=== PATIENT | female | born 1960 | race Caucasian/White ===

== ENCOUNTER 2018-03-04 10:27 | Emergency (ER) | payer OTHER, MEDICAID ==
[2018-03-04 11:59] LABS: ADD MAN DIFF? NO
[2018-03-04 12:01] LABS: ABNORMAL IP MESSAGE 1; BASOPHIL # 0.1 10^3/ul (0.0-0.1); BASOPHILS % 1.6 % (0.0-2.0); EOSINOPHILS # 0.1 10^3/ul (0.0-0.5); HEMATOCRIT 34.9 % (37.0-47.0); HEMOGLOBIN 11.2 g/dl (12.0-16.0); LYMPHOCYTES % 22.7 % (15.0-51.0); MEAN CORPUSCULAR HEMOGLOBIN 35.2 pg (29.0-33.0); MEAN CORPUSCULAR HGB CONC 32.1 g/dl (32.0-37.0); MEAN CORPUSCULAR VOLUME 109.7 fl (82.0-101.0); MEAN PLATELET VOLUME 12.7 fl (7.4-10.4); MONOCYTE # 0.2 10^3/ul (0.3-0.9); MONOCYTES % 4.3 % (0.0-11.0); NEUTROPHIL # 3.1 10^3/ul (1.6-7.5); NEUTROPHILS % 69.2 % (39.0-77.0); PLATELET COUNT 66 10^3/UL (140-415); RED BLOOD COUNT 3.18 10^6/ul (4.20-5.40); RED CELL DISTRIBUTION WIDTH 18.3 % (11.5-14.5)
[2018-03-04 12:01] LABS: WHITE BLOOD COUNT 4.4 10^3/ul (4.8-10.8)
[2018-03-04 12:03] LABS: POSITIVE DIFF @See below
[2018-03-04 12:27] LABS: ALANINE AMINOTRANSFERASE 11 IU/L (13-69); ALBUMIN 3.3 g/dl (3.3-4.9); ALBUMIN/GLOBULIN RATIO 1.03; ALKALINE PHOSPHATASE 100 IU/L (42-121); ANION GAP 12 (5-13); ASPARTATE AMINO TRANSFERASE 14 IU/L (15-46); BLOOD UREA NITROGEN 21 mg/dl (7-20); CALCIUM 9.8 mg/dl (8.4-10.2); CARBON DIOXIDE 26 mmol/L (21-31); CHLORIDE 101 mmol/L (97-110); CREATININE 3.53 mg/dl (0.44-1.00); Estimated GFR 13 mL/min (>60); GLUCOSE 98 mg/dl (70-220); LIPASE 37 U/L (23-300); POTASSIUM 4.7 mmol/L (3.5-5.1); SODIUM 139 mmol/L (135-144); TOTAL PROTEIN 6.5 g/dl (6.1-8.1)
== END 2018-03-04 13:58 | disposition home or self-care (01) ==
LOC: E/R 10:27
DX: D64.9 Anemia, unspecified (principal); R40.2142 Coma scale, eyes open, spontaneous, at arrival to emergency department; R40.2362 Coma scale, best motor response, obeys commands, at arrival to emergency department; R40.2252 Coma scale, best verbal response, oriented, at arrival to emergency department; N18.9 Chronic kidney disease, unspecified; Z99.2 Dependence on renal dialysis
CPT/HCPCS: 36415; 71250; 74176; 80053; 83690; 85025; 99284-25

== ENCOUNTER 2018-05-12 23:56 | Inpatient (IN) | payer OTHER ==
[2018-05-13] MEDS: SODIUM CHLORIDE 0.9% 1L BAG IV* (01:01)
[2018-05-13 01:19] LABS: WHITE BLOOD COUNT 4.7 10^3/ul (4.8-10.8)
[2018-05-13 01:19] LABS: ABNORMAL IP MESSAGE 1; HEMATOCRIT 22.5 % (37.0-47.0); HEMOGLOBIN 7.4 g/dl (12.0-16.0); MEAN CORPUSCULAR HEMOGLOBIN 35.1 pg (29.0-33.0); MEAN CORPUSCULAR HGB CONC 32.9 g/dl (32.0-37.0); MEAN CORPUSCULAR VOLUME 106.6 fl (82.0-101.0); RED BLOOD COUNT 2.11 10^6/ul (4.20-5.40); RED CELL DISTRIBUTION WIDTH 16.2 % (11.5-14.5)
[2018-05-13 01:20] LABS: ADD MAN DIFF? YES; POSITIVE DIFF @See below
[2018-05-13 01:22] LABS: PLATELET COUNT 25 10^3/UL (140-415)
[2018-05-13 01:24] LABS: INR 1.29; PROTIME 16.2 Sec (11.9-14.9); PT RATIO 1.3
[2018-05-13 01:25] LABS: PARTIAL THROMBOPLASTIN TIME 40.3 Sec (23.0-35.0)
[2018-05-13 01:29] LABS: ALANINE AMINOTRANSFERASE 19 IU/L (13-69); ALKALINE PHOSPHATASE 93 IU/L (42-121); ANION GAP 12 (5-13); ASPARTATE AMINO TRANSFERASE 19 IU/L (15-46); BILIRUBIN,INDIRECT 0.3 mg/dl (0-1.1); BILIRUBIN,TOTAL 0.3 mg/dl (0.2-1.3); BLOOD UREA NITROGEN 42 mg/dl (7-20); CALCIUM 9.8 mg/dl (8.4-10.2); CARBON DIOXIDE 27 mmol/L (21-31); CHLORIDE 98 mmol/L (97-110); Estimated GFR 11 mL/min (>60); GLUCOSE 87 mg/dl (70-220); POTASSIUM 5.1 mmol/L (3.5-5.1); SODIUM 137 mmol/L (135-144); TOTAL PROTEIN 6.3 g/dl (6.1-8.1)
[2018-05-13 01:41] LABS: AADO2 Arterial 70.5 mmHg (7.0-24.0); Arterial Base Excess 0.2 mmol/L (-3.0-3); Arterial Blood Gas Oxygen Sat 93.2 mmHG (95.0-98.0); Arterial COHb 0.1 % (0.0-3.0); Arterial Fraction of Oxyhgb 92.7 % (93.0-99.0); Arterial HCO3 25.3 mmol/L (22.0-26.0); Arterial MetHb 0.4 % (0.0-1.5); Arterial pCO2 43.5 mmhg (35-45); B-TYPE NATRIURETIC PEPTIDE 8040 PG/ML (0-125); MODE NASAL CANNULA; Site Right Brachial; TROPONIN-I < 0.012 ng/ml (0.000-0.120)
[2018-05-13 01:52] LABS: ANISOCYTOSIS 2+ (0-0); BAND NEUTROPHILS #M 0.4 10^3/ul (0.0-0.6); BAND NEUTROPHILS % (M) 9 % (0-4); EOSINOPHILS % (M) 1 % (0-7); GIANT THROMBO% (M) 1 % (0-0); HYPOCHROMASIA 1+ (0-0); LYMPHOCYTES #M 0.5 10^3/ul (0.8-2.9); LYMPHOCYTES % (M) 11 % (15-51); MONOCYTE #M 0.1 10^3/ul (0.3-0.9); MONOCYTES % (M) 3 % (0-11); PLATELET ESTIMATE SIG DECREASED; POIKILOCYTOSIS 1+ (0-0); POLYCHROMASIA 2+ (0-0); SEG NEUT #M 3.6 10^3/ul (1.6-7.5); SEGMENTED NEUTROPHILS (M) % 76 % (39-77); SMUDGE%M 1 % (0-0)
[2018-05-13] MEDS: AZTREONAM 1 GM/NS (PMX) 50 ML IVPB (01:58)
[2018-05-13] MEDS: LEVOFLOXACIN 750MG/D5W (PMX) 150 ML IVPB (02:44)
[2018-05-13] MEDS ORDERED: ONDANSETRON 4 MG INJ IV (03:00)
[2018-05-13] MEDS ORDERED: DOCUSATE SODIUM 100 MG CAP PO (03:00)
[2018-05-13] MEDS ORDERED: BISACODYL (EC) 5 MG TAB PO (03:00)
[2018-05-13] MEDS ORDERED: ACETAMINOPHEN 325 MG TAB PO (03:00)
[2018-05-13] MEDS ORDERED: NACL 0.9% 3 ML SYG IV (03:00)
[2018-05-13 03:09] LABS: HAAIG REFLEX REFLEX FILED
[2018-05-13 04:10] LABS: HEPATITIS B CORE ANTIBODY NEGATIVE (NEGATIVE); HEPATITIS C VIRAL ANTIBODY NEGATIVE (NEGATIVE)
[2018-05-13 04:10] LABS: HEPATITIS B SURFACE ANTIBODY POSITIVE (NEGATIVE)
[2018-05-13 04:40] LABS: HEPATITIS B SURFACE ANTIGEN NEGATIVE (NEGATIVE)
[2018-05-13 06:07] LABS: ABNORMAL IP MESSAGE 1; MEAN CORPUSCULAR HEMOGLOBIN 34.8 pg (29.0-33.0); MEAN CORPUSCULAR HGB CONC 32.6 g/dl (32.0-37.0); MEAN CORPUSCULAR VOLUME 106.7 fl (82.0-101.0); RED BLOOD COUNT 1.78 10^6/ul (4.20-5.40); RED CELL DISTRIBUTION WIDTH 16.3 % (11.5-14.5)
[2018-05-13 06:07] LABS: WHITE BLOOD COUNT 3.5 10^3/ul (4.8-10.8)
[2018-05-13 06:22] LABS: HEMOGLOBIN 6.2 g/dl (12.0-16.0); PLATELET COUNT 14 10^3/UL (140-415)
[2018-05-13 06:23] LABS: ADD MAN DIFF? YES; PATH REVIEW? YES; POSITIVE DIFF @See below
[2018-05-13 06:41] LABS: PHOSPHORUS 5.7 mg/dl (2.5-4.9)
[2018-05-13] MEDS: ALBUMIN HUMAN 25% 50 ML INJ IV (06:47)
[2018-05-13] MEDS ORDERED: ALBUMIN HUMAN 25% 100 ML IV (07:00)
[2018-05-13] MEDS: ALBUMIN HUMAN 25% 100 ML IV ×2 (07:17→17:11)
[2018-05-13 07:29] LABS: LACTIC ACID 1.8 mmol/L (0.5-2.0)
[2018-05-13 08:27] LABS: ANISOCYTOSIS 1+ (0-0); BAND NEUTROPHILS #M 0.6 10^3/ul (0.0-0.6); BAND NEUTROPHILS % (M) 19 % (0-4); BASOPHILS % (M) 1 % (0-2); HYPOCHROMASIA 1+ (0-0); LYMPHOCYTES #M 0.7 10^3/ul (0.8-2.9); LYMPHOCYTES % (M) 22 % (15-51); MONOCYTE #M 0.1 10^3/ul (0.3-0.9); MONOCYTES % (M) 3 % (0-11); MYELOCYTES % (M) 2 % (0-0); OVALOCYTES 1+ (0-0); PLATELET ESTIMATE SIG DECREASED; POIKILOCYTOSIS 1+ (0-0); POLYCHROMASIA 2+ (0-0); SEG NEUT #M 1.9 10^3/ul (1.6-7.5); SEGMENTED NEUTROPHILS (M) % 53 % (39-77); SMUDGE%M 2 % (0-0)
[2018-05-13 09:48] LABS: IMMEDIATE SPIN CROSSMATCH 1 7
[2018-05-13] MEDS ORDERED: AZTREONAM 0.5 GM in SOD CHLORIDE 0.9% 50 ML IVPB (11:00)
[2018-05-13] MEDS ORDERED: PENDING SANTYL ORDER FOR WOUND CARE XX (12:30)
[2018-05-13] MEDS: metroNIDAZOLE 250 MG TAB PO ×2 (13:54→21:19)
[2018-05-13] MEDS ORDERED: metroNIDAZOLE 500 MG/NS (PMX) 100 ML IVPB (14:00)
[2018-05-13 14:54] LABS: WHITE BLOOD COUNT 3.9 10^3/ul (4.8-10.8)
[2018-05-13 14:54] LABS: ABNORMAL IP MESSAGE 1; HEMATOCRIT 28.7 % (37.0-47.0); HEMOGLOBIN 9.1 g/dl (12.0-16.0); MEAN CORPUSCULAR HEMOGLOBIN 31.7 pg (29.0-33.0); MEAN CORPUSCULAR HGB CONC 31.7 g/dl (32.0-37.0); RED BLOOD COUNT 2.87 10^6/ul (4.20-5.40); RED CELL DISTRIBUTION WIDTH 20.1 % (11.5-14.5)
[2018-05-13 15:13] LABS: POSITIVE DIFF @See below
[2018-05-13 15:15] LABS: PLATELET COUNT 21 10^3/UL (140-415)
[2018-05-13 15:19] LABS: ADD MAN DIFF? YES
[2018-05-13 16:06] LABS: ANISOCYTOSIS 2+ (0-0); BAND NEUTROPHILS #M 0.6 10^3/ul (0.0-0.6); BAND NEUTROPHILS % (M) 17 % (0-4); LYMPHOCYTES #M 0.4 10^3/ul (0.8-2.9); LYMPHOCYTES % (M) 12 % (15-51); MONOCYTES % (M) 1 % (0-11); PLATELET ESTIMATE SIG DECREASED; POIKILOCYTOSIS 1+ (0-0); SEG NEUT #M 2.8 10^3/ul (1.6-7.5); SEGMENTED NEUTROPHILS (M) % 70 % (39-77); SMUDGE%M 14 % (0-0)
[2018-05-13] MEDS: LIDOCAINE 1% (MPF) 5 ML VIAL (16:07)
[2018-05-13 17:21] LABS: ADD MAN DIFF? NO
[2018-05-13 17:24] LABS: WHITE BLOOD COUNT 2.9 10^3/ul (4.8-10.8)
[2018-05-13 17:24] LABS: ABNORMAL IP MESSAGE 1; BASOPHILS % 0.7 % (0.0-2.0); EOSINOPHILS % 0.7 % (0.0-7.0); HEMATOCRIT 21.8 % (37.0-47.0); HEMOGLOBIN 7.1 g/dl (12.0-16.0); LYMPHOCYTES # 0.5 10^3/ul (0.8-2.9); LYMPHOCYTES % 16.6 % (15.0-51.0); MEAN CORPUSCULAR HEMOGLOBIN 32.1 pg (29.0-33.0); MEAN CORPUSCULAR HGB CONC 32.6 g/dl (32.0-37.0); MEAN CORPUSCULAR VOLUME 98.6 fl (82.0-101.0); MEAN PLATELET VOLUME 10.6 fl (7.4-10.4); MONOCYTE # 0.1 10^3/ul (0.3-0.9); MONOCYTES % 3.5 % (0.0-11.0); NEUTROPHIL # 2.3 10^3/ul (1.6-7.5); NEUTROPHILS % 78.2 % (39.0-77.0); RED BLOOD COUNT 2.21 10^6/ul (4.20-5.40); RED CELL DISTRIBUTION WIDTH 20.3 % (11.5-14.5)
[2018-05-13 17:25] LABS: POSITIVE DIFF @See below
[2018-05-13 17:26] LABS: PLATELET COUNT 16 10^3/UL (140-415)
[2018-05-13 17:37] LABS: TYPE AND SCREEN 1
[2018-05-13 22:11] LABS: ABNORMAL IP MESSAGE 1; HEMATOCRIT 31.9 % (37.0-47.0); HEMOGLOBIN 10.5 g/dl (12.0-16.0); MEAN CORPUSCULAR HEMOGLOBIN 32.5 pg (29.0-33.0); MEAN CORPUSCULAR HGB CONC 32.9 g/dl (32.0-37.0); MEAN CORPUSCULAR VOLUME 98.8 fl (82.0-101.0); RED BLOOD COUNT 3.23 10^6/ul (4.20-5.40); RED CELL DISTRIBUTION WIDTH 18.7 % (11.5-14.5)
[2018-05-13 22:11] LABS: WHITE BLOOD COUNT 4.1 10^3/ul (4.8-10.8)
[2018-05-13 22:20] LABS: POSITIVE DIFF @See below
[2018-05-13 22:22] LABS: PLATELET COUNT 18 10^3/UL (140-415)
[2018-05-13 22:24] LABS: ADD MAN DIFF? YES
[2018-05-13 22:47] LABS: ANISOCYTOSIS 2+ (0-0); BAND NEUTROPHILS #M 0.2 10^3/ul (0.0-0.6); BAND NEUTROPHILS % (M) 7 % (0-4); EOSINOPHILS % (M) 5 % (0-7); ERYTHROBLAST% (NRBC) (M) 1 % (0-0); GIANT THROMBO% (M) 11 % (0-0); LYMPHOCYTES #M 0.6 10^3/ul (0.8-2.9); LYMPHOCYTES % (M) 15 % (15-51); MICROCYTOSIS 1+ (0-0); PLATELET ESTIMATE NORMAL; POIKILOCYTOSIS 1+ (0-0); POLYCHROMASIA 1+ (0-0); SEGMENTED NEUTROPHILS (M) % 73 % (39-77); SMUDGE%M 5 % (0-0)
[2018-05-14] MEDS: metroNIDAZOLE 250 MG TAB PO ×3 (05:38→21:14)
[2018-05-14 06:17] LABS: WHITE BLOOD COUNT 4.6 10^3/ul (4.8-10.8)
[2018-05-14 06:17] LABS: ABNORMAL IP MESSAGE 1; HEMATOCRIT 32.9 % (37.0-47.0); HEMOGLOBIN 10.9 g/dl (12.0-16.0); MEAN CORPUSCULAR HEMOGLOBIN 32.4 pg (29.0-33.0); MEAN CORPUSCULAR HGB CONC 33.1 g/dl (32.0-37.0); MEAN CORPUSCULAR VOLUME 97.9 fl (82.0-101.0); RED BLOOD COUNT 3.36 10^6/ul (4.20-5.40); RED CELL DISTRIBUTION WIDTH 19.3 % (11.5-14.5)
[2018-05-14 06:20] LABS: ADD MAN DIFF? YES; POSITIVE DIFF @See below
[2018-05-14 06:21] LABS: PLATELET COUNT 19 10^3/UL (140-415)
[2018-05-14 06:57] LABS: ALANINE AMINOTRANSFERASE 24 IU/L (13-69); ALBUMIN 3.1 g/dl (3.3-4.9); ALKALINE PHOSPHATASE 99 IU/L (42-121); ANION GAP 9 (5-13); ASPARTATE AMINO TRANSFERASE 14 IU/L (15-46); BILIRUBIN,INDIRECT 0.5 mg/dl (0-1.1); BILIRUBIN,TOTAL 0.5 mg/dl (0.2-1.3); BLOOD UREA NITROGEN 24 mg/dl (7-20); CARBON DIOXIDE 27 mmol/L (21-31); CHLORIDE 105 mmol/L (97-110); CHOL/HDL RATIO 2.6 RATIO; CHOLESTEROL 73 mg/dl (100-200); CREATININE 2.44 mg/dl (0.44-1.00); Estimated GFR 20 mL/min (>60); GLUCOSE 96 mg/dl (70-220); HDL CHOLESTEROL 28 mg/dl (37-92); LDL CHOLESTEROL,CALCULATED 30 mg/dl; MAGNESIUM 1.8 mg/dl (1.7-2.5); SODIUM 141 mmol/L (135-144); TOTAL PROTEIN 5.9 g/dl (6.1-8.1); TRIGLYCERIDES 73 mg/dl (0-149)
[2018-05-14 07:25] LABS: HIV 1&2 ANTIBODY NEGATIVE (NEGATIVE)
[2018-05-14 07:32] LABS: OCCULT BLOOD STOOL NEGATIVE (NEGATIVE)
[2018-05-14 07:50] LABS: ANISOCYTOSIS 1+ (0-0); BAND NEUTROPHILS #M 0.5 10^3/ul (0.0-0.6); BAND NEUTROPHILS % (M) 12 % (0-4); BURR CELLS 1+ (0-0); EOSINOPHILS % (M) 2 % (0-7); GIANT THROMBO% (M) 10 % (0-0); LYMPHOCYTES #M 1.3 10^3/ul (0.8-2.9); LYMPHOCYTES % (M) 30 % (15-51); PLATELET ESTIMATE SIG DECREASED; POIKILOCYTOSIS 1+ (0-0); REACTIVE LYMPHOCYTES #M 0.5 10^3/ul (0.0-0.0); REACTIVE LYMPHOCYTES% (M) 11 % (0-0); SEG NEUT #M 2.1 10^3/ul (1.6-7.5); SEGMENTED NEUTROPHILS (M) % 45 % (39-77); SMUDGE%M 21 % (0-0)
[2018-05-14 07:58] LABS: HEMOGLOBIN A1C 4.9 % (0-5.9)
[2018-05-14] MEDS: MULTIVIT/CA CARB/B CMPLX/FA TAB PO (13:49)
[2018-05-14] MEDS: PANTOPRAZOLE (EC) 40 MG TAB PO (13:49)
[2018-05-14] MEDS: FOLIC ACID 1 MG TAB PO (13:50)
[2018-05-14] MEDS: AMIODARONE 200 MG TAB PO ×2 (13:50→21:15)
[2018-05-14] MEDS: EPOETIN 10000 UNITS/1 ML INJ (ESRD) SC (13:53)
[2018-05-14] MEDS: SOD CHLORIDE 0.9% 0 ML IV (21:15)
[2018-05-15 06:16] LABS: WHITE BLOOD COUNT 4.6 10^3/ul (4.8-10.8)
[2018-05-15 06:16] LABS: ABNORMAL IP MESSAGE 1; HEMATOCRIT 32.5 % (37.0-47.0); HEMOGLOBIN 10.7 g/dl (12.0-16.0); MEAN CORPUSCULAR HEMOGLOBIN 32.3 pg (29.0-33.0); MEAN CORPUSCULAR HGB CONC 32.9 g/dl (32.0-37.0); MEAN CORPUSCULAR VOLUME 98.2 fl (82.0-101.0); MEAN PLATELET VOLUME 11.7 fl (7.4-10.4); RED BLOOD COUNT 3.31 10^6/ul (4.20-5.40); RED CELL DISTRIBUTION WIDTH 19.5 % (11.5-14.5)
[2018-05-15] MEDS: LEVOTHYROXINE 75 MCG TAB PO (06:19)
[2018-05-15] MEDS: LEVOFLOXACIN 250 MG TAB PO (06:19)
[2018-05-15] MEDS: metroNIDAZOLE 250 MG TAB PO ×4 (06:19→22:00)
[2018-05-15] MEDS: PANTOPRAZOLE (EC) 40 MG TAB PO (06:19)
[2018-05-15 06:31] LABS: ADD MAN DIFF? YES; POSITIVE DIFF @See below
[2018-05-15 06:33] LABS: PLATELET COUNT 22 10^3/UL (140-415)
[2018-05-15 06:51] LABS: THROMBIN TIME 16.1 SEC (13.8-19.1)
[2018-05-15 07:04] LABS: ANION GAP 11 (5-13); BLOOD UREA NITROGEN 29 mg/dl (7-20); CALCIUM 9.2 mg/dl (8.4-10.2); CARBON DIOXIDE 24 mmol/L (21-31); CHLORIDE 107 mmol/L (97-110); CREATININE 3.05 mg/dl (0.44-1.00); Estimated GFR 16 mL/min (>60); GLUCOSE 93 mg/dl (70-220); MAGNESIUM 1.9 mg/dl (1.7-2.5); POTASSIUM 3.9 mmol/L (3.5-5.1); SODIUM 142 mmol/L (135-144)
[2018-05-15] MEDS ORDERED: LEVOFLOXACIN 250MG/D5W (PMX) 50 ML IVPB (08:30)
[2018-05-15] MEDS: FOLIC ACID 1 MG TAB PO (08:42)
[2018-05-15] MEDS: MULTIVIT/CA CARB/B CMPLX/FA TAB PO (08:42)
[2018-05-15] MEDS: AMIODARONE 200 MG TAB PO ×2 (08:43→21:00)
[2018-05-15 09:21] LABS: ANISOCYTOSIS 1+ (0-0); BAND NEUTROPHILS #M 0.1 10^3/ul (0.0-0.6); BAND NEUTROPHILS % (M) 4 % (0-4); BURR CELLS 1+ (0-0); EOSINOPHILS % (M) 1 % (0-7); GIANT THROMBO% (M) 12 % (0-0); HYPOCHROMASIA 1+ (0-0); LYMPHOCYTES #M 0.5 10^3/ul (0.8-2.9); LYMPHOCYTES % (M) 13 % (15-51); PLATELET ESTIMATE DECREASED; POIKILOCYTOSIS 1+ (0-0); REACTIVE LYMPHOCYTES% (M) 1 % (0-0); SEG NEUT #M 3.7 10^3/ul (1.6-7.5); SEGMENTED NEUTROPHILS (M) % 81 % (39-77); SMUDGE%M 6 % (0-0)
[2018-05-15] MEDS ORDERED: IMMUNE GLOBULIN (HUMAN) 6 GM INJ IV (17:00)
[2018-05-15 18:03] LABS: FREE T4 (FREE THYROXINE) 1.23 ng/dl (0.64-1.79); T4 (THYROXINE) 4.6 ug/dl (5.5-11.0)
[2018-05-15] MEDS: EPOETIN 10000 UNITS/1 ML INJ (ESRD) SC (22:00)
[2018-05-16] MEDS: IMMUNE GLOBULIN IV ×2 (00:26→13:14)
[2018-05-16] MEDS: WATER STERILE FOR IV ×2 (00:26→13:14)
[2018-05-16 05:49] LABS: ABNORMAL IP MESSAGE 1; HEMATOCRIT 30.3 % (37.0-47.0); HEMOGLOBIN 9.7 g/dl (12.0-16.0); MEAN CORPUSCULAR HEMOGLOBIN 32.6 pg (29.0-33.0); MEAN CORPUSCULAR VOLUME 101.7 fl (82.0-101.0); MEAN PLATELET VOLUME 12.2 fl (7.4-10.4); RED BLOOD COUNT 2.98 10^6/ul (4.20-5.40); RED CELL DISTRIBUTION WIDTH 19.6 % (11.5-14.5)
[2018-05-16 05:49] LABS: WHITE BLOOD COUNT 3.7 10^3/ul (4.8-10.8)
[2018-05-16 06:06] LABS: ANION GAP 8 (5-13); BLOOD UREA NITROGEN 17 mg/dl (7-20); CALCIUM 8.6 mg/dl (8.4-10.2); CARBON DIOXIDE 28 mmol/L (21-31); CHLORIDE 105 mmol/L (97-110); CREATININE 2.28 mg/dl (0.44-1.00); Estimated GFR 22 mL/min (>60); GLUCOSE 90 mg/dl (70-220); POTASSIUM 3.6 mmol/L (3.5-5.1); SODIUM 141 mmol/L (135-144)
[2018-05-16] MEDS: metroNIDAZOLE 250 MG TAB PO ×3 (06:16→22:58)
[2018-05-16] MEDS: LEVOTHYROXINE 75 MCG TAB PO (06:16)
[2018-05-16] MEDS: PANTOPRAZOLE (EC) 40 MG TAB PO (06:16)
[2018-05-16 06:49] LABS: POSITIVE DIFF @See below
[2018-05-16 06:52] LABS: ADD MAN DIFF? YES; PLATELET COUNT 17 10^3/UL (140-415)
[2018-05-16 09:39] LABS: ANISOCYTOSIS 1+ (0-0); BAND NEUTROPHILS #M 0.1 10^3/ul (0.0-0.6); BAND NEUTROPHILS % (M) 3 % (0-4); BASOPHILS % (M) 1 % (0-2); BURR CELLS 2+ (0-0); EOSINOPHILS % (M) 4 % (0-7); ERYTHROBLAST% (NRBC) (M) 1 % (0-0); GIANT THROMBO% (M) 2 % (0-0); LYMPHOCYTES #M 0.5 10^3/ul (0.8-2.9); LYMPHOCYTES % (M) 16 % (15-51); METAMYELOCYTES %M 1 % (0-0); MYELOCYTES % (M) 1 % (0-0); OVALOCYTES 1+ (0-0); PLATELET ESTIMATE DECREASED; POIKILOCYTOSIS 1+ (0-0); SEG NEUT #M 2.7 10^3/ul (1.6-7.5); SEGMENTED NEUTROPHILS (M) % 74 % (39-77); SMUDGE%M 9 % (0-0)
[2018-05-16] MEDS: FOLIC ACID 1 MG TAB PO (09:40)
[2018-05-16] MEDS: MULTIVIT/CA CARB/B CMPLX/FA TAB PO (09:40)
[2018-05-16] MEDS: AMIODARONE 200 MG TAB PO ×2 (09:40→21:44)
[2018-05-16] MEDS ORDERED: WATER STERILE FOR IV (10:00)
[2018-05-16] MEDS ORDERED: IMMUNE GLOBULIN IV (10:00)
[2018-05-16 14:27] LABS: ANA SCREEN NEGATIVE (NEGATIVE)
[2018-05-16] MEDS: GUAIFENESIN 20 MG/ML 5ML CUP PO (17:15)
[2018-05-16] MEDS: FUROSEMIDE 20 MG INJ IV (17:16)
[2018-05-16 20:39] LABS: ADD MAN DIFF? NO
[2018-05-16 20:43] LABS: WHITE BLOOD COUNT 5.4 10^3/ul (4.8-10.8)
[2018-05-16 20:43] LABS: ABNORMAL IP MESSAGE 1; BASOPHILS % 0.7 % (0.0-2.0); EOSINOPHILS # 0.1 10^3/ul (0.0-0.5); EOSINOPHILS % 0.9 % (0.0-7.0); HEMATOCRIT 31.5 % (37.0-47.0); HEMOGLOBIN 10.1 g/dl (12.0-16.0); LYMPHOCYTES # 0.8 10^3/ul (0.8-2.9); LYMPHOCYTES % 14.7 % (15.0-51.0); MEAN CORPUSCULAR HEMOGLOBIN 32.3 pg (29.0-33.0); MEAN CORPUSCULAR HGB CONC 32.1 g/dl (32.0-37.0); MEAN CORPUSCULAR VOLUME 100.6 fl (82.0-101.0); MEAN PLATELET VOLUME 11.2 fl (7.4-10.4); MONOCYTE # 0.5 10^3/ul (0.3-0.9); MONOCYTES % 8.3 % (0.0-11.0); NEUTROPHILS % 73.9 % (39.0-77.0); RED BLOOD COUNT 3.13 10^6/ul (4.20-5.40); RED CELL DISTRIBUTION WIDTH 19.5 % (11.5-14.5)
[2018-05-16 20:48] LABS: POSITIVE DIFF @See below
[2018-05-16 20:50] LABS: PLATELET COUNT 17 10^3/UL (140-415)
[2018-05-16 21:00] LABS: ANION GAP 7 (5-13); BLOOD UREA NITROGEN 19 mg/dl (7-20); CALCIUM 8.7 mg/dl (8.4-10.2); CARBON DIOXIDE 28 mmol/L (21-31); CHLORIDE 104 mmol/L (97-110); CREATININE 2.73 mg/dl (0.44-1.00); Estimated GFR 18 mL/min (>60); GLUCOSE 128 mg/dl (70-220); POTASSIUM 3.5 mmol/L (3.5-5.1); SODIUM 139 mmol/L (135-144)
[2018-05-16 21:11] LABS: TROPONIN-I < 0.012 ng/ml (0.000-0.120)
[2018-05-17 07:02] LABS: WHITE BLOOD COUNT 6.1 10^3/ul (4.8-10.8)
[2018-05-17 07:02] LABS: ABNORMAL IP MESSAGE 1; HEMATOCRIT 30.3 % (37.0-47.0); HEMOGLOBIN 9.6 g/dl (12.0-16.0); MEAN CORPUSCULAR HEMOGLOBIN 32.5 pg (29.0-33.0); MEAN CORPUSCULAR HGB CONC 31.7 g/dl (32.0-37.0); MEAN CORPUSCULAR VOLUME 102.7 fl (82.0-101.0); NUCLEATED RED BLOOD CELLS% 0.3 /100WBC (0.0-0.0); RED BLOOD COUNT 2.95 10^6/ul (4.20-5.40); RED CELL DISTRIBUTION WIDTH 19.5 % (11.5-14.5)
[2018-05-17 07:06] LABS: MEAN PLATELET VOLUME 13.7 fl (7.4-10.4); POSITIVE DIFF @See below
[2018-05-17 07:07] LABS: ADD MAN DIFF? YES; PLATELET COUNT 25 10^3/UL (140-415)
[2018-05-17 07:19] LABS: ANION GAP 7 (5-13); BLOOD UREA NITROGEN 21 mg/dl (7-20); CALCIUM 8.7 mg/dl (8.4-10.2); CARBON DIOXIDE 28 mmol/L (21-31); CHLORIDE 105 mmol/L (97-110); CREATININE 2.99 mg/dl (0.44-1.00); Estimated GFR 16 mL/min (>60); GLUCOSE 73 mg/dl (70-220); SODIUM 140 mmol/L (135-144)
[2018-05-17 07:45] LABS: ANISOCYTOSIS 1+ (0-0); BAND NEUTROPHILS % (M) 1 % (0-4); BASOPHIL #M 0.1 10^3/ul (0.0-0.0); BASOPHILS % (M) 3 % (0-2); EOSINOPHILS % (M) 1 % (0-7); ERYTHROBLAST% (NRBC) (M) 1 % (0-0); GIANT THROMBO% (M) 1 % (0-0); LYMPHOCYTES #M 2.6 10^3/ul (0.8-2.9); LYMPHOCYTES % (M) 44 % (15-51); MICROCYTOSIS 1+ (0-0); MONOCYTES % (M) 1 % (0-11); PLATELET ESTIMATE SIG DECREASED; POLYCHROMASIA 1+ (0-0); REACTIVE LYMPHOCYTES #M 0.2 10^3/ul (0.0-0.0); REACTIVE LYMPHOCYTES% (M) 4 % (0-0); SEG NEUT #M 2.8 10^3/ul (1.6-7.5); SEGMENTED NEUTROPHILS (M) % 46 % (39-77); SMUDGE%M 21 % (0-0); SPHEROCYTES 1+ (0-0)
[2018-05-17] MEDS: metroNIDAZOLE 250 MG TAB PO ×3 (07:46→20:33)
[2018-05-17] MEDS: LEVOTHYROXINE 75 MCG TAB PO (07:47)
[2018-05-17] MEDS: PANTOPRAZOLE (EC) 40 MG TAB PO (07:47)
[2018-05-17] MEDS: LEVOFLOXACIN 250 MG TAB PO (07:47)
[2018-05-17] MEDS: AMIODARONE 200 MG TAB PO ×2 (09:00→20:44)
[2018-05-17] MEDS: MULTIVIT/CA CARB/B CMPLX/FA TAB PO (09:13)
[2018-05-17] MEDS: FOLIC ACID 1 MG TAB PO (09:14)
[2018-05-17] MEDS ORDERED: IMMUNE GLOBULIN (HUMAN) 6 GM INJ IV (10:30)
[2018-05-17] MEDS: ALBUMIN HUMAN 25% 100 ML IV (10:50)
[2018-05-17] MEDS ORDERED: EVAC CONTAINER IV (13:00)
[2018-05-17] MEDS ORDERED: IMMUN GLOB 10% IV (13:00)
[2018-05-17] MEDS: EPOETIN 10000 UNITS/1 ML INJ (ESRD) SC (16:33)
[2018-05-18] MEDS: PANTOPRAZOLE (EC) 40 MG TAB PO (06:07)
[2018-05-18] MEDS: LEVOTHYROXINE 75 MCG TAB PO (06:07)
[2018-05-18] MEDS: metroNIDAZOLE 250 MG TAB PO ×3 (06:07→21:03)
[2018-05-18 06:35] LABS: ADD MAN DIFF? NO
[2018-05-18 06:46] LABS: ABNORMAL IP MESSAGE 1; BASOPHILS % 0.5 % (0.0-2.0); EOSINOPHILS % 0.6 % (0.0-7.0); HEMATOCRIT 31.1 % (37.0-47.0); HEMOGLOBIN 9.8 g/dl (12.0-16.0); LYMPHOCYTES # 1.1 10^3/ul (0.8-2.9); LYMPHOCYTES % 17.5 % (15.0-51.0); MEAN CORPUSCULAR HEMOGLOBIN 31.8 pg (29.0-33.0); MEAN CORPUSCULAR HGB CONC 31.5 g/dl (32.0-37.0); MEAN PLATELET VOLUME 12.7 fl (7.4-10.4); MONOCYTE # 0.5 10^3/ul (0.3-0.9); MONOCYTES % 8.1 % (0.0-11.0); NEUTROPHIL # 4.7 10^3/ul (1.6-7.5); NEUTROPHILS % 72.1 % (39.0-77.0); NUCLEATED RED BLOOD CELLS% 0.5 /100WBC (0.0-0.0); RED BLOOD COUNT 3.08 10^6/ul (4.20-5.40); RED CELL DISTRIBUTION WIDTH 19.4 % (11.5-14.5)
[2018-05-18 06:46] LABS: WHITE BLOOD COUNT 6.5 10^3/ul (4.8-10.8)
[2018-05-18 06:49] LABS: POSITIVE DIFF @See below
[2018-05-18 06:51] LABS: PLATELET COUNT 24 10^3/UL (140-415)
[2018-05-18 07:29] LABS: ANION GAP 10 (5-13); BLOOD UREA NITROGEN 17 mg/dl (7-20); CALCIUM 8.5 mg/dl (8.4-10.2); CARBON DIOXIDE 23 mmol/L (21-31); CHLORIDE 109 mmol/L (97-110); CREATININE 2.36 mg/dl (0.44-1.00); Estimated GFR 21 mL/min (>60); GLUCOSE 78 mg/dl (70-220); POTASSIUM 3.9 mmol/L (3.5-5.1); SODIUM 142 mmol/L (135-144)
[2018-05-18] MEDS: AMIODARONE 200 MG TAB PO ×2 (09:20→20:19)
[2018-05-18] MEDS: MULTIVIT/CA CARB/B CMPLX/FA TAB PO (09:20)
[2018-05-18] MEDS: FOLIC ACID 1 MG TAB PO (09:20)
[2018-05-18 12:46] LABS: PROCALCITONIN 4.93 ng/mL (<0.10)
[2018-05-18] MEDS: METHYLPREDNISOLONE 125 MG INJ IV (18:23)
[2018-05-18 23:35] LABS: HEPARIN INDUCED PLATELET AB WEAK POSITIVE (NEGATIVE)
[2018-05-19] MEDS: PANTOPRAZOLE (EC) 40 MG TAB PO (05:26)
[2018-05-19] MEDS: metroNIDAZOLE 250 MG TAB PO ×3 (05:26→21:11)
[2018-05-19] MEDS: LEVOTHYROXINE 75 MCG TAB PO (06:25)
[2018-05-19] MEDS: LEVOFLOXACIN 250 MG TAB PO (06:25)
[2018-05-19 06:35] LABS: ADD MAN DIFF? NO
[2018-05-19 06:50] LABS: WHITE BLOOD COUNT 6.1 10^3/ul (4.8-10.8)
[2018-05-19 06:50] LABS: ABNORMAL IP MESSAGE 1; BASOPHILS % 0.2 % (0.0-2.0); HEMATOCRIT 30.4 % (37.0-47.0); HEMOGLOBIN 9.3 g/dl (12.0-16.0); LYMPHOCYTES # 0.6 10^3/ul (0.8-2.9); LYMPHOCYTES % 9.1 % (15.0-51.0); MEAN CORPUSCULAR HEMOGLOBIN 31.5 pg (29.0-33.0); MEAN CORPUSCULAR HGB CONC 30.6 g/dl (32.0-37.0); MEAN CORPUSCULAR VOLUME 103.1 fl (82.0-101.0); MEAN PLATELET VOLUME 13.3 fl (7.4-10.4); MONOCYTE # 0.1 10^3/ul (0.3-0.9); MONOCYTES % 1.5 % (0.0-11.0); NEUTROPHIL # 5.4 10^3/ul (1.6-7.5); NEUTROPHILS % 88.5 % (39.0-77.0); RED BLOOD COUNT 2.95 10^6/ul (4.20-5.40); RED CELL DISTRIBUTION WIDTH 19.4 % (11.5-14.5)
[2018-05-19 07:06] LABS: ANION GAP 8 (5-13); BLOOD UREA NITROGEN 26 mg/dl (7-20); CALCIUM 8.8 mg/dl (8.4-10.2); CARBON DIOXIDE 25 mmol/L (21-31); CHLORIDE 109 mmol/L (97-110); CREATININE 2.88 mg/dl (0.44-1.00); Estimated GFR 17 mL/min (>60); GLUCOSE 124 mg/dl (70-220); POTASSIUM 4.3 mmol/L (3.5-5.1); SODIUM 142 mmol/L (135-144)
[2018-05-19 07:17] LABS: PLATELET COUNT 23 10^3/UL (140-415); POSITIVE DIFF @See below
[2018-05-19] MEDS: AMIODARONE 200 MG TAB PO ×2 (09:00→21:10)
[2018-05-19] MEDS: METHYLPREDNISOLONE 125 MG INJ IV (09:51)
[2018-05-19] MEDS: FOLIC ACID 1 MG TAB PO (09:52)
[2018-05-19] MEDS: MULTIVIT/CA CARB/B CMPLX/FA TAB PO (09:52)
[2018-05-20] MEDS: metroNIDAZOLE 250 MG TAB PO ×3 (06:09→21:15)
[2018-05-20] MEDS: LEVOTHYROXINE 75 MCG TAB PO (06:09)
[2018-05-20] MEDS: PANTOPRAZOLE (EC) 40 MG TAB PO (06:10)
[2018-05-20 06:31] LABS: ABNORMAL IP MESSAGE 1; HEMOGLOBIN 9.2 g/dl (12.0-16.0); MEAN CORPUSCULAR HEMOGLOBIN 31.4 pg (29.0-33.0); MEAN CORPUSCULAR HGB CONC 30.7 g/dl (32.0-37.0); MEAN CORPUSCULAR VOLUME 102.4 fl (82.0-101.0); MEAN PLATELET VOLUME 11.9 fl (7.4-10.4); NUCLEATED RED BLOOD CELLS% 0.4 /100WBC (0.0-0.0); RED BLOOD COUNT 2.93 10^6/ul (4.20-5.40); RED CELL DISTRIBUTION WIDTH 19.2 % (11.5-14.5)
[2018-05-20 06:31] LABS: WHITE BLOOD COUNT 10.8 10^3/ul (4.8-10.8)
[2018-05-20 06:50] LABS: POSITIVE DIFF @See below
[2018-05-20 06:52] LABS: PLATELET COUNT 28 10^3/UL (140-415)
[2018-05-20 06:53] LABS: ADD MAN DIFF? YES
[2018-05-20 07:04] LABS: ANION GAP 11 (5-13); BLOOD UREA NITROGEN 40 mg/dl (7-20); CALCIUM 9.4 mg/dl (8.4-10.2); CARBON DIOXIDE 24 mmol/L (21-31); CHLORIDE 108 mmol/L (97-110); CREATININE 3.32 mg/dl (0.44-1.00); Estimated GFR 14 mL/min (>60); GLUCOSE 142 mg/dl (70-220); POTASSIUM 3.9 mmol/L (3.5-5.1); SODIUM 143 mmol/L (135-144)
[2018-05-20 07:53] LABS: ANISOCYTOSIS 2+ (0-0); BAND NEUTROPHILS #M 1.2 10^3/ul (0.0-0.6); BAND NEUTROPHILS % (M) 12 % (0-4); BURR CELLS 3+ (0-0); ERYTHROBLAST% (NRBC) (M) 2 % (0-0); HYPOCHROMASIA 1+ (0-0); LYMPHOCYTES #M 0.7 10^3/ul (0.8-2.9); LYMPHOCYTES % (M) 7 % (15-51); MONOCYTE #M 0.1 10^3/ul (0.3-0.9); MONOCYTES % (M) 1 % (0-11); OVALOCYTES 1+ (0-0); PLATELET ESTIMATE SIG DECREASED; POIKILOCYTOSIS 3+ (0-0); POLYCHROMASIA 3+ (0-0); REACTIVE LYMPHOCYTES #M 0.1 10^3/ul (0.0-0.0); REACTIVE LYMPHOCYTES% (M) 1 % (0-0); SEG NEUT #M 8.7 10^3/ul (1.6-7.5); SEGMENTED NEUTROPHILS (M) % 79 % (39-77); SMUDGE%M 3 % (0-0); TARGET CELLS 1+ (0-0); TOXIC GRANULATION 1+ (0-0)
[2018-05-20] MEDS ORDERED: ALBUMIN HUMAN 25% 100 ML IV (10:00)
[2018-05-20] MEDS: ALBUMIN HUMAN 25% 100 ML IV ×2 (10:21→11:00)
[2018-05-20] MEDS: MULTIVIT/CA CARB/B CMPLX/FA TAB PO (18:00)
[2018-05-20] MEDS: EPOETIN 10000 UNITS/1 ML INJ (ESRD) SC (18:00)
[2018-05-20] MEDS: AMIODARONE 200 MG TAB PO ×2 (18:00→21:16)
[2018-05-20] MEDS: FOLIC ACID 1 MG TAB PO (18:00)
[2018-05-20] MEDS: METHYLPREDNISOLONE 125 MG INJ IV (18:00)
[2018-05-20 20:06] LABS: PLATELET ANTIBODY - IGA NEGATIVE (NEGATIVE); PLATELET ANTIBODY - IGG POSITIVE (NEGATIVE); PLATELET ANTIBODY - IGM NEGATIVE (NEGATIVE)
[2018-05-21] MEDS: LEVOTHYROXINE 75 MCG TAB PO (06:10)
[2018-05-21] MEDS: PANTOPRAZOLE (EC) 40 MG TAB PO (06:10)
[2018-05-21 08:53] LABS: ABNORMAL IP MESSAGE 1; HEMATOCRIT 28.5 % (37.0-47.0); HEMOGLOBIN 8.8 g/dl (12.0-16.0); MEAN CORPUSCULAR HEMOGLOBIN 31.4 pg (29.0-33.0); MEAN CORPUSCULAR HGB CONC 30.9 g/dl (32.0-37.0); MEAN CORPUSCULAR VOLUME 101.8 fl (82.0-101.0); MEAN PLATELET VOLUME 13.1 fl (7.4-10.4); NUCLEATED RED BLOOD CELLS% 0.4 /100WBC (0.0-0.0); RED CELL DISTRIBUTION WIDTH 19.1 % (11.5-14.5)
[2018-05-21 08:53] LABS: WHITE BLOOD COUNT 11.3 10^3/ul (4.8-10.8)
[2018-05-21 08:59] LABS: POSITIVE DIFF @See below
[2018-05-21 09:01] LABS: PLATELET COUNT 27 10^3/UL (140-415)
[2018-05-21 09:02] LABS: ADD MAN DIFF? YES
[2018-05-21 09:13] LABS: ANION GAP 12 (5-13); BLOOD UREA NITROGEN 32 mg/dl (7-20); CARBON DIOXIDE 30 mmol/L (21-31); CHLORIDE 101 mmol/L (97-110); CREATININE 2.31 mg/dl (0.44-1.00); Estimated GFR 22 mL/min (>60); GLUCOSE 126 mg/dl (70-220); POTASSIUM 3.8 mmol/L (3.5-5.1); SODIUM 143 mmol/L (135-144)
[2018-05-21] MEDS: METHYLPREDNISOLONE 125 MG INJ IV (09:14)
[2018-05-21] MEDS: FOLIC ACID 1 MG TAB PO (09:14)
[2018-05-21] MEDS: AMIODARONE 200 MG TAB PO (09:14)
[2018-05-21] MEDS: MULTIVIT/CA CARB/B CMPLX/FA TAB PO (09:14)
[2018-05-21 09:49] LABS: ANISOCYTOSIS 2+ (0-0); BAND NEUTROPHILS #M 0.3 10^3/ul (0.0-0.6); BAND NEUTROPHILS % (M) 3 % (0-4); BURR CELLS 1+ (0-0); LYMPHOCYTES #M 0.3 10^3/ul (0.8-2.9); LYMPHOCYTES % (M) 3 % (15-51); MONOCYTE #M 0.1 10^3/ul (0.3-0.9); MONOCYTES % (M) 1 % (0-11); PLATELET ESTIMATE SIG DECREASED; POIKILOCYTOSIS 1+ (0-0); POLYCHROMASIA 1+ (0-0); SEG NEUT #M 10.5 10^3/ul (1.6-7.5); SEGMENTED NEUTROPHILS (M) % 93 % (39-77); SMUDGE%M 3 % (0-0)
[2018-05-21] MEDS ORDERED: BALSAM PERU/CASTOR OIL 60 GM TUBE TOP (21:00)
== END 2018-05-21 15:57 | disposition home or self-care (01) | DRG 808 ==
LOC: E/R 23:56 → TEL 05-16 18:48 → MS1 05-15 12:50 → 6WM 05-13 02:51
PROC: 0W9G3ZZ Drainage of Peritoneal Cavity, Percutaneous Approach (ICD-10-PCS; principal; 2018-05-13)
PROC: 30233R1 Transfusion of Nonautologous Platelets into Peripheral Vein, Percutaneous Approach (ICD-10-PCS; 2018-05-13)
PROC: 30233N1 Transfusion of Nonautologous Red Blood Cells into Peripheral Vein, Percutaneous Approach (ICD-10-PCS; 2018-05-13)
PROC: 5A1D70Z Performance of Urinary Filtration, Intermittent, Less than 6 Hours Per Day (ICD-10-PCS; 2018-05-13)
DX: D61.818 Other pancytopenia (principal); K65.1 Peritoneal abscess; N18.6 End stage renal disease; E43 Unspecified severe protein-calorie malnutrition; J18.9 Pneumonia, unspecified organism; T85.71XA Infection and inflammatory reaction due to peritoneal dialysis catheter, initial encounter; R18.8 Other ascites; J90 Pleural effusion, not elsewhere classified; Z68.1 Body mass index [BMI] 19.9 or less, adult; I12.0 Hypertensive chronic kidney disease with stage 5 chronic kidney disease or end stage renal disease; R65.10 Systemic inflammatory response syndrome (SIRS) of non-infectious origin without acute organ dysfunction; Z95.0 Presence of cardiac pacemaker; Z99.2 Dependence on renal dialysis; E11.22 Type 2 diabetes mellitus with diabetic chronic kidney disease; I70.0 Atherosclerosis of aorta; D63.8 Anemia in other chronic diseases classified elsewhere; I25.10 Atherosclerotic heart disease of native coronary artery without angina pectoris; E03.9 Hypothyroidism, unspecified; K42.9 Umbilical hernia without obstruction or gangrene; J06.9 Acute upper respiratory infection, unspecified; Z76.82 Awaiting organ transplant status; D75.82 Heparin induced thrombocytopenia (HIT)
CPT/HCPCS: 36415; 36430; 36600; 71045; 74176; 80048; 80053; 80061; 82270; 82607; 82803; 83036; 83605; 83735; 83880; 84100; 84145; 84436; 84439; 84443; 84484; 85025; 85335; 85610; 85670; 85730; 86022; 86038; 86703; 86704; 86706; 86709; 86803; 86850; 86870; 86900; 86901; 86920; 87040; 87081; 87275; 87276; 87279; 87280; 87340; 87400; 90935; 93005; 93306; 96361; 96365; 96375; 99291-25; J1566

== ENCOUNTER 2018-06-15 02:16 | Inpatient (IN) | payer OTHER ==
[2018-06-15] MEDS: DEXTROSE 50% 50 ML SYRINGE IV (02:28)
[2018-06-15] MEDS ORDERED: DEXTROSE 50% 50 ML SYRINGE (02:28)
[2018-06-15 02:47] LABS: WHITE BLOOD COUNT 3.1 10^3/ul (4.8-10.8)
[2018-06-15 02:47] LABS: ABNORMAL IP MESSAGE 1; HEMATOCRIT 27.6 % (37.0-47.0); HEMOGLOBIN 8.5 g/dl (12.0-16.0); MEAN CORPUSCULAR HEMOGLOBIN 30.7 pg (29.0-33.0); MEAN CORPUSCULAR HGB CONC 30.8 g/dl (32.0-37.0); MEAN CORPUSCULAR VOLUME 99.6 fl (82.0-101.0); MEAN PLATELET VOLUME 12.7 fl (7.4-10.4); PLATELET COUNT 34 10^3/UL (140-415); RED BLOOD COUNT 2.77 10^6/ul (4.20-5.40); RED CELL DISTRIBUTION WIDTH 23.4 % (11.5-14.5)
[2018-06-15 03:06] LABS: INR 1.57; PROTIME 18.9 Sec (11.9-14.9); PT RATIO 1.5
[2018-06-15 03:07] LABS: ALBUMIN 3.1 g/dl (3.3-4.9); ALBUMIN/GLOBULIN RATIO 0.96; ALKALINE PHOSPHATASE 123 IU/L (42-121); ANION GAP 8 (5-13); ASPARTATE AMINO TRANSFERASE 27 IU/L (15-46); BILIRUBIN,INDIRECT 0.4 mg/dl (0-1.1); BILIRUBIN,TOTAL 0.4 mg/dl (0.2-1.3); BLOOD UREA NITROGEN 25 mg/dl (7-20); CALCIUM 8.5 mg/dl (8.4-10.2); CARBON DIOXIDE 28 mmol/L (21-31); CHLORIDE 104 mmol/L (97-110); CREATININE 1.74 mg/dl (0.44-1.00); Estimated GFR 30 mL/min (>60); PARTIAL THROMBOPLASTIN TIME 46.6 Sec (23.0-35.0); POTASSIUM 3.5 mmol/L (3.5-5.1); SODIUM 140 mmol/L (135-144); TOTAL PROTEIN 6.3 g/dl (6.1-8.1)
[2018-06-15 03:13] LABS: ALANINE AMINOTRANSFERASE < 6 IU/L (13-69)
[2018-06-15 03:15] LABS: GLUCOSE 23 mg/dl (70-220)
[2018-06-15 03:16] LABS: ADD MAN DIFF? YES; POSITIVE DIFF @See below
[2018-06-15 03:23] LABS: TROPONIN-I < 0.012 ng/ml (0.000-0.120)
[2018-06-15] MEDS ORDERED: NORepinephrine 8MG/250 ML (PMX 250 ML IV (03:30)
[2018-06-15 03:40] LABS: ACANTHOCYTES 1+ (0-0); ANISOCYTOSIS 2+ (0-0); BAND NEUTROPHILS #M 0.7 10^3/ul (0.0-0.6); BAND NEUTROPHILS % (M) 25 % (0-4); BASOPHILS % (M) 1 % (0-2); BURR CELLS 1+ (0-0); GIANT THROMBO% (M) 2 % (0-0); LYMPHOCYTES #M 0.5 10^3/ul (0.8-2.9); LYMPHOCYTES % (M) 19 % (15-51); METAMYELOCYTES %M 1 % (0-0); MONOCYTE #M 0.3 10^3/ul (0.3-0.9); MONOCYTES % (M) 11 % (0-11); MYELOCYTES % (M) 1 % (0-0); OVALOCYTES 1+ (0-0); PLATELET ESTIMATE DECREASED; POIKILOCYTOSIS 3+ (0-0); PROMYELOCYTES % (M) 1 % (0-0); REACTIVE LYMPHOCYTES #M 0.2 10^3/ul (0.0-0.0); REACTIVE LYMPHOCYTES% (M) 7 % (0-0); SEG NEUT #M 1.1 10^3/ul (1.6-7.5); SEGMENTED NEUTROPHILS (M) % 34 % (39-77); SMUDGE%M 37 % (0-0); TARGET CELLS 1+ (0-0)
[2018-06-15] MEDS: ALBUMIN HUMAN 25% 100 ML IV ×2 (03:51→17:56)
[2018-06-15] MEDS: MEROPENEM 1 GM/50ML(PMX) 50 ML IVPB (04:04)
[2018-06-15 04:17] LABS: AADO2 Arterial 102.1 mmHg (7.0-24.0); Arterial Base Excess -3.2 mmol/L (-3.0-3); Arterial Blood Gas Oxygen Sat 97.9 mmHG (95.0-98.0); Arterial COHb 1.1 % (0.0-3.0); Arterial Fraction of Oxyhgb 96.7 % (93.0-99.0); Arterial HCO3 23.4 mmol/L (22.0-26.0); Arterial MetHb 0.1 % (0.0-1.5); Arterial pCO2 50.6 mmhg (35-45); MODE NASAL CANNULA; Site Right Brachial
[2018-06-15] MEDS: LINEZOLID 600 MG/300 ML (PMX) 300 ML IVPB ×2 (04:23→10:35)
[2018-06-15] MEDS ORDERED: ACETAMINOPHEN 650MG/20.3ML CUP PO (05:30)
[2018-06-15] MEDS ORDERED: ALBUTEROL/IPRATROPIUM (NEB) 3 ML AMP NEB (05:30)
[2018-06-15] MEDS: DEXTROSE 10% 1,000 ML IV ×2 (05:45→19:04)
[2018-06-15 06:25] LABS: AADO2 Arterial 78.7 mmHg (7.0-24.0); Arterial Base Excess -0.4 mmol/L (-3.0-3); Arterial Blood Gas Oxygen Sat 99.1 mmHG (95.0-98.0); Arterial COHb 0.5 % (0.0-3.0); Arterial Fraction of Oxyhgb 98.4 % (93.0-99.0); Arterial HCO3 26.2 mmol/L (22.0-26.0); Arterial MetHb 0.2 % (0.0-1.5); Arterial pCO2 53.5 mmhg (35-45); Blood Gas IEPAP 18/5; Blood Gas PS 13; MODE MASK - BIPAP; Site Right Brachial
[2018-06-15 08:59] LABS: LACTIC ACID 2.5 mmol/L (0.5-2.0)
[2018-06-15] MEDS ORDERED: FUROSEMIDE 20 MG INJ IV (09:00)
[2018-06-15] MEDS: PANTOPRAZOLE 40 MG INJ IV (09:25)
[2018-06-15] MEDS: AMIODARONE 200 MG TAB PO ×2 (09:42→20:07)
[2018-06-15] MEDS: LEVOTHYROXINE 75 MCG TAB PO (09:43)
[2018-06-15] MEDS: FOLIC ACID 1 MG TAB PO (09:43)
[2018-06-15] MEDS: FLUCONAZOLE 100 MG/50 ML (PMX) 50 ML IVPB (11:22)
[2018-06-15] MEDS: DAPTOMYCIN 320 MG in SOD CHLORIDE 0.9% 100 ML IVPB (15:27)
[2018-06-15] MEDS: BALSAM PERU/CASTOR OIL 60 GM TUBE TOP (15:27)
[2018-06-15] MEDS: ONDANSETRON 4 MG INJ IV (16:50)
[2018-06-15] MEDS ORDERED: NORepinephrine 8MG/250 ML (PMX 250 ML (18:48)
[2018-06-15] MEDS: NORepinephrine 8MG/250 ML (PMX 250 ML IV (19:03)
[2018-06-15] MEDS: MEROPENEM 500MG/50 ML (PMX) 50 ML IVPB (21:21)
[2018-06-16] MEDS: BALSAM PERU/CASTOR OIL 60 GM TUBE TOP ×2 (00:14→12:29)
[2018-06-16 05:21] LABS: ABNORMAL IP MESSAGE 1; HEMATOCRIT 24.8 % (37.0-47.0); HEMOGLOBIN 7.7 g/dl (12.0-16.0); MEAN CORPUSCULAR HEMOGLOBIN 30.8 pg (29.0-33.0); MEAN CORPUSCULAR VOLUME 99.2 fl (82.0-101.0); PLATELET COUNT 40 10^3/UL (140-415); RED CELL DISTRIBUTION WIDTH 23.1 % (11.5-14.5)
[2018-06-16 05:22] LABS: POSITIVE DIFF @See below
[2018-06-16 05:23] LABS: ADD MAN DIFF? YES
[2018-06-16] MEDS: PANTOPRAZOLE 40 MG INJ IV (05:26)
[2018-06-16 06:03] LABS: ANION GAP 13 (5-13); BLOOD UREA NITROGEN 30 mg/dl (7-20); CALCIUM 7.7 mg/dl (8.4-10.2); CARBON DIOXIDE 24 mmol/L (21-31); CHLORIDE 97 mmol/L (97-110); CREATININE 1.98 mg/dl (0.44-1.00); Estimated GFR 26 mL/min (>60); GLUCOSE 70 mg/dl (70-220); MAGNESIUM 1.6 mg/dl (1.7-2.5); PHOSPHORUS 3.4 mg/dl (2.5-4.9); POTASSIUM 3.5 mmol/L (3.5-5.1); SODIUM 134 mmol/L (135-144)
[2018-06-16 06:07] LABS: CREATINE KINASE < 20 IU/L (23-200)
[2018-06-16] MEDS: LEVOTHYROXINE 75 MCG TAB PO (07:00)
[2018-06-16 07:03] LABS: ACANTHOCYTES 1+ (0-0); ANISOCYTOSIS 2+ (0-0); BAND NEUTROPHILS #M 2.1 10^3/ul (0.0-0.6); BAND NEUTROPHILS % (M) 27 % (0-4); BURR CELLS 3+ (0-0); GIANT THROMBO% (M) 2 % (0-0); HYPOCHROMASIA 1+ (0-0); LYMPHOCYTES #M 1.3 10^3/ul (0.8-2.9); LYMPHOCYTES % (M) 17 % (15-51); MICROCYTOSIS 1+ (0-0); MONOCYTE #M 0.4 10^3/ul (0.3-0.9); MONOCYTES % (M) 5 % (0-11); OVALOCYTES 1+ (0-0); PLATELET ESTIMATE SIG DECREASED; POIKILOCYTOSIS 3+ (0-0); POLYCHROMASIA 2+ (0-0); REACTIVE LYMPHOCYTES #M 0.2 10^3/ul (0.0-0.0); REACTIVE LYMPHOCYTES% (M) 3 % (0-0); SEGMENTED NEUTROPHILS (M) % 48 % (39-77); SMUDGE%M 32 % (0-0)
[2018-06-16 08:29] LABS: AADO2 Arterial 20.5 mmHg (7.0-24.0); Arterial Base Excess -3.2 mmol/L (-3.0-3); Arterial Blood Gas Oxygen Sat 97.8 mmHG (95.0-98.0); Arterial Fraction of Oxyhgb 96.6 % (93.0-99.0); Arterial HCO3 24.2 mmol/L (22.0-26.0); Arterial MetHb 0.2 % (0.0-1.5); Arterial pCO2 56.2 mmhg (35-45); MODE NASAL CANNULA; Site Right Brachial
[2018-06-16] MEDS: DEXTROSE 10% 1,000 ML IV ×2 (08:41→21:27)
[2018-06-16] MEDS: MEROPENEM 500MG/50 ML (PMX) 50 ML IVPB (08:42)
[2018-06-16] MEDS: FOLIC ACID 1 MG TAB PO (09:00)
[2018-06-16] MEDS: AMIODARONE 200 MG TAB PO ×2 (09:00→21:00)
[2018-06-16] MEDS: EPOETIN ALFA-EPBX (ESRD) 10,000 UNIT/ML VIAL SC (11:03)
[2018-06-16] MEDS: MAGNESIUM SULFATE 2 GM/50 ML 50 ML IVPB (11:07)
[2018-06-16] MEDS: FLUCONAZOLE 100 MG/50 ML (PMX) 50 ML IVPB (12:29)
[2018-06-16] MEDS ORDERED: DEXTROSE 50% 50 ML SYRINGE (17:45)
[2018-06-16] MEDS: DEXTROSE 50% 50 ML SYRINGE IV (17:47)
[2018-06-16] MEDS: ACCU-CHEK XX (21:00)
[2018-06-16] MEDS: NORepinephrine 8MG/250 ML (PMX 250 ML IV (22:48)
[2018-06-17] MEDS: ACCU-CHEK XX ×6 (00:42→21:03)
[2018-06-17] MEDS: MEROPENEM 500MG/50 ML (PMX) 50 ML IVPB ×3 (00:43→20:58)
[2018-06-17] MEDS: BALSAM PERU/CASTOR OIL 60 GM TUBE TOP ×3 (02:17→21:01)
[2018-06-17 05:27] LABS: WHITE BLOOD COUNT 8.5 10^3/ul (4.8-10.8)
[2018-06-17 05:27] LABS: ABNORMAL IP MESSAGE 1; HEMATOCRIT 29.1 % (37.0-47.0); HEMOGLOBIN 9.5 g/dl (12.0-16.0); MEAN CORPUSCULAR HEMOGLOBIN 30.4 pg (29.0-33.0); MEAN CORPUSCULAR HGB CONC 32.6 g/dl (32.0-37.0); MEAN PLATELET VOLUME 11.9 fl (7.4-10.4); RED BLOOD COUNT 3.13 10^6/ul (4.20-5.40); RED CELL DISTRIBUTION WIDTH 20.7 % (11.5-14.5)
[2018-06-17 05:31] LABS: ADD MAN DIFF? YES; POSITIVE DIFF @See below
[2018-06-17 05:33] LABS: PLATELET COUNT 17 10^3/UL (140-415)
[2018-06-17 05:51] LABS: ANION GAP 10 (5-13); BLOOD UREA NITROGEN 18 mg/dl (7-20); CALCIUM 7.7 mg/dl (8.4-10.2); CARBON DIOXIDE 26 mmol/L (21-31); CHLORIDE 97 mmol/L (97-110); CREATININE 1.38 mg/dl (0.44-1.00); Estimated GFR 39 mL/min (>60); GLUCOSE 79 mg/dl (70-220); MAGNESIUM 1.9 mg/dl (1.7-2.5); PHOSPHORUS 2.4 mg/dl (2.5-4.9); POTASSIUM 3.1 mmol/L (3.5-5.1); SODIUM 133 mmol/L (135-144)
[2018-06-17] MEDS: PANTOPRAZOLE 40 MG INJ IV (06:28)
[2018-06-17] MEDS: LEVOTHYROXINE 75 MCG TAB PO (06:28)
[2018-06-17 06:40] LABS: ANISOCYTOSIS 2+ (0-0); BAND NEUTROPHILS #M 2.3 10^3/ul (0.0-0.6); BAND NEUTROPHILS % (M) 28 % (0-4); BURR CELLS 2+ (0-0); LYMPHOCYTES #M 0.9 10^3/ul (0.8-2.9); LYMPHOCYTES % (M) 11 % (15-51); METAMYELOCYTES %M 1 % (0-0); MONOCYTE #M 0.3 10^3/ul (0.3-0.9); MONOCYTES % (M) 4 % (0-11); OVALOCYTES 1+ (0-0); PLATELET ESTIMATE SIG DECREASED; POIKILOCYTOSIS 3+ (0-0); POLYCHROMASIA 1+ (0-0); SEGMENTED NEUTROPHILS (M) % 56 % (39-77); SMUDGE%M 8 % (0-0)
[2018-06-17] MEDS ORDERED: SUCCINYLCHOLINE CHLORIDE 100 MG/5 ML SYG IV (07:00)
[2018-06-17 07:50] LABS: AADO2 Arterial 62.3 mmHg (7.0-24.0); Arterial Base Excess -0.9 mmol/L (-3.0-3); Arterial Blood Gas Oxygen Sat 98.1 mmHG (95.0-98.0); Arterial COHb 0.6 % (0.0-3.0); Arterial Fraction of Oxyhgb 97.3 % (93.0-99.0); Arterial HCO3 25.9 mmol/L (22.0-26.0); Arterial MetHb 0.2 % (0.0-1.5); Arterial pCO2 53.4 mmhg (35-45); Blood Gas IEPAP 18/5; Blood Gas PS 13; MODE MASK - BIPAP; Site Right Brachial
[2018-06-17] MEDS: POTASSIUM CHLORIDE 100 ML IVPB (08:09)
[2018-06-17] MEDS: AMIODARONE 200 MG TAB PO ×2 (08:33→20:51)
[2018-06-17] MEDS: FOLIC ACID 1 MG TAB PO (08:34)
[2018-06-17] MEDS: POTASSIUM PHOSPHATE 40 MEQ in SOD CHLORIDE 0.9% 250 ML IVPB (10:03)
[2018-06-17] MEDS: NORepinephrine 8MG/250 ML (PMX 250 ML IV (11:04)
[2018-06-17] MEDS: DEXTROSE 10% 1,000 ML IV (11:05)
[2018-06-17] MEDS: FLUCONAZOLE 100 MG/50 ML (PMX) 50 ML IVPB (11:36)
[2018-06-17] MEDS ORDERED: GLUCAGON 1 MG INJ IM (13:30)
[2018-06-17] MEDS ORDERED: GLUCOSE GEL 15 GRAM TUBE BUCCAL (13:30)
[2018-06-17] MEDS ORDERED: GLUCOSE GEL 15 GRAM TUBE PO ×2 (13:30)
[2018-06-17] MEDS: DEXTROSE 50% 50 ML SYRINGE IV ×2 (13:34→21:09)
[2018-06-17] MEDS: CASPOFUNGIN 70 MG in SOD CHLORIDE 0.9% 250 ML IVPB (16:11)
[2018-06-17] MEDS: DAPTOMYCIN 320 MG in SOD CHLORIDE 0.9% 100 ML IVPB (16:13)
[2018-06-17 16:19] LABS: WHITE BLOOD COUNT 9.3 10^3/ul (4.8-10.8)
[2018-06-17 16:19] LABS: ABNORMAL IP MESSAGE 1; HEMATOCRIT 30.6 % (37.0-47.0); HEMOGLOBIN 10.1 g/dl (12.0-16.0); MEAN CORPUSCULAR HEMOGLOBIN 30.5 pg (29.0-33.0); MEAN CORPUSCULAR VOLUME 92.4 fl (82.0-101.0); RED BLOOD COUNT 3.31 10^6/ul (4.20-5.40); RED CELL DISTRIBUTION WIDTH 21.1 % (11.5-14.5)
[2018-06-17 16:31] LABS: POSITIVE DIFF @See below
[2018-06-17 16:32] LABS: ADD MAN DIFF? YES
[2018-06-17 17:31] LABS: PLATELET COUNT 13 10^3/UL (140-415)
[2018-06-18] MEDS ORDERED: PHENYLephrine 80 MG in DEXTROSE 5% 242 ML IV
[2018-06-18] MEDS ORDERED: MIDAZOLAM (DRIP) 50 mg/50 mL 50 ML IV
[2018-06-18] MEDS: PROPOFOL 100 ML IV ×2 (00:19→10:44)
[2018-06-18 01:18] LABS: AADO2 Arterial 438.7 mmHg (7.0-24.0); Arterial Base Excess -2.7 mmol/L (-3.0-3); Arterial Blood Gas Oxygen Sat 99.3 mmHG (95.0-98.0); Arterial COHb 0.3 % (0.0-3.0); Arterial Fraction of Oxyhgb 98.8 % (93.0-99.0); Arterial MetHb 0.2 % (0.0-1.5); MODE VENT - AC; Site Right Radial
[2018-06-18 01:30] LABS: TYPE AND SCREEN 1
[2018-06-18 01:36] LABS: ABNORMAL IP MESSAGE 1; HEMATOCRIT 27.4 % (37.0-47.0); HEMOGLOBIN 9.1 g/dl (12.0-16.0); MEAN CORPUSCULAR HEMOGLOBIN 30.7 pg (29.0-33.0); MEAN CORPUSCULAR HGB CONC 33.2 g/dl (32.0-37.0); MEAN CORPUSCULAR VOLUME 92.6 fl (82.0-101.0); MEAN PLATELET VOLUME 10.7 fl (7.4-10.4); RED BLOOD COUNT 2.96 10^6/ul (4.20-5.40); RED CELL DISTRIBUTION WIDTH 20.7 % (11.5-14.5)
[2018-06-18 01:36] LABS: WHITE BLOOD COUNT 7.3 10^3/ul (4.8-10.8)
[2018-06-18] MEDS: ACCU-CHEK XX ×6 (01:39→21:08)
[2018-06-18 01:40] LABS: POSITIVE DIFF @See below
[2018-06-18] MEDS: DEXTROSE 50% 50 ML SYRINGE IV ×2 (01:42→05:07)
[2018-06-18 01:44] LABS: ADD MAN DIFF? YES
[2018-06-18 01:45] LABS: PLATELET COUNT 18 10^3/UL (140-415)
[2018-06-18 01:53] LABS: ALANINE AMINOTRANSFERASE 13 IU/L (13-69); ALBUMIN 2.7 g/dl (3.3-4.9); ALKALINE PHOSPHATASE 108 IU/L (42-121); ANION GAP 15 (5-13); ASPARTATE AMINO TRANSFERASE 21 IU/L (15-46); BILIRUBIN,INDIRECT 0.8 mg/dl (0-1.1); BILIRUBIN,TOTAL 1.2 mg/dl (0.2-1.3); BLOOD UREA NITROGEN 26 mg/dl (7-20); CALCIUM 8.4 mg/dl (8.4-10.2); CARBON DIOXIDE 20 mmol/L (21-31); CHLORIDE 96 mmol/L (97-110); CREATININE 1.55 mg/dl (0.44-1.00); Estimated GFR 34 mL/min (>60); POTASSIUM 4.1 mmol/L (3.5-5.1); SODIUM 131 mmol/L (135-144); TOTAL PROTEIN 5.4 g/dl (6.1-8.1)
[2018-06-18 01:55] LABS: GLUCOSE 46 mg/dl (70-220)
[2018-06-18 01:55] LABS: LACTIC ACID 3.2 mmol/L (0.5-2.0)
[2018-06-18 02:02] LABS: ANISOCYTOSIS 2+ (0-0); BAND NEUTROPHILS % (M) 14 % (0-4); GIANT THROMBO% (M) 1 % (0-0); LYMPHOCYTES #M 0.5 10^3/ul (0.8-2.9); LYMPHOCYTES % (M) 8 % (15-51); MICROCYTOSIS 1+ (0-0); MONOCYTE #M 0.4 10^3/ul (0.3-0.9); MONOCYTES % (M) 6 % (0-11); PLATELET ESTIMATE SIG DECREASED; POIKILOCYTOSIS 3+ (0-0); POLYCHROMASIA 1+ (0-0); SEG NEUT #M 5.3 10^3/ul (1.6-7.5); SEGMENTED NEUTROPHILS (M) % 72 % (39-77); SMUDGE%M 3 % (0-0)
[2018-06-18] MEDS: LEVOTHYROXINE 75 MCG TAB PO (05:04)
[2018-06-18 06:38] LABS: ABNORMAL IP MESSAGE 1; HEMATOCRIT 22.2 % (37.0-47.0); HEMOGLOBIN 7.5 g/dl (12.0-16.0); MEAN CORPUSCULAR HEMOGLOBIN 30.7 pg (29.0-33.0); MEAN CORPUSCULAR HGB CONC 33.8 g/dl (32.0-37.0); MEAN PLATELET VOLUME 10.5 fl (7.4-10.4); PLATELET COUNT 32 10^3/UL (140-415); POSITIVE DIFF @See below; RED BLOOD COUNT 2.44 10^6/ul (4.20-5.40); RED CELL DISTRIBUTION WIDTH 20.5 % (11.5-14.5)
[2018-06-18 06:38] LABS: WHITE BLOOD COUNT 7.4 10^3/ul (4.8-10.8)
[2018-06-18 06:39] LABS: ADD MAN DIFF? YES
[2018-06-18] MEDS: NORepinephrine 8MG/250 ML (PMX 250 ML IV (06:39)
[2018-06-18 06:56] LABS: LACTIC ACID 3.9 mmol/L (0.5-2.0)
[2018-06-18] MEDS ORDERED: NA BICARBONATE 8.4% 50 ML SYG (07:00)
[2018-06-18] MEDS ORDERED: EPINEPHrine 0.1 MG/ML SYG (07:00)
[2018-06-18] MEDS ORDERED: CA CHLORIDE 10% 10 ML SYRINGE (07:00)
[2018-06-18] MEDS ORDERED: ETOMIDATE 20 MG INJ (07:00)
[2018-06-18 07:02] LABS: ANION GAP 14 (5-13); BLOOD UREA NITROGEN 28 mg/dl (7-20); CALCIUM 8.2 mg/dl (8.4-10.2); CARBON DIOXIDE 21 mmol/L (21-31); CHLORIDE 95 mmol/L (97-110); CREATININE 1.57 mg/dl (0.44-1.00); Estimated GFR 34 mL/min (>60); GLUCOSE 85 mg/dl (70-220); MAGNESIUM 1.7 mg/dl (1.7-2.5); PHOSPHORUS 3.9 mg/dl (2.5-4.9); SODIUM 130 mmol/L (135-144)
[2018-06-18 07:44] LABS: ANISOCYTOSIS 2+ (0-0); BAND NEUTROPHILS % (M) 1 % (0-4); BURR CELLS 1+ (0-0); EOSINOPHILS % (M) 1 % (0-7); ERYTHROBLAST% (NRBC) (M) 1 % (0-0); GIANT THROMBO% (M) 3 % (0-0); LYMPHOCYTES #M 0.7 10^3/ul (0.8-2.9); LYMPHOCYTES % (M) 10 % (15-51); MONOCYTE #M 0.6 10^3/ul (0.3-0.9); MONOCYTES % (M) 9 % (0-11); PLATELET ESTIMATE SIG DECREASED; POIKILOCYTOSIS 1+ (0-0); SEG NEUT #M 5.8 10^3/ul (1.6-7.5); SEGMENTED NEUTROPHILS (M) % 79 % (39-77); SMUDGE%M 6 % (0-0); TARGET CELLS 1+ (0-0)
[2018-06-18] MEDS: FOLIC ACID 1 MG TAB PO (08:07)
[2018-06-18] MEDS: MEROPENEM 500MG/50 ML (PMX) 50 ML IVPB ×2 (08:08→20:40)
[2018-06-18] MEDS: FAMOTIDINE 20 MG INJ IV (08:08)
[2018-06-18] MEDS: AMIODARONE 200 MG TAB PO ×2 (08:08→20:40)
[2018-06-18] MEDS: ALBUMIN HUMAN 25% 100 ML IV ×2 (08:09→16:17)
[2018-06-18] MEDS: BALSAM PERU/CASTOR OIL 60 GM TUBE TOP ×2 (08:09→20:39)
[2018-06-18 09:35] LABS: HEPATITIS B SURFACE ANTIGEN NEGATIVE (NEGATIVE)
[2018-06-18] MEDS: DEXTROSE 10% 1,000 ML IV (10:44)
[2018-06-18] MEDS: CASPOFUNGIN 50 MG in SOD CHLORIDE 0.9% 250 ML IVPB (13:07)
[2018-06-18] MEDS: HEPARIN 1000 UNITS/ML 10 ML INJ CATHETER (17:57)
[2018-06-19] MEDS: DEXTROSE 10% 1,000 ML IV ×2 (00:14→17:10)
[2018-06-19] MEDS: ALBUMIN HUMAN 25% 100 ML IV (00:18)
[2018-06-19] MEDS: ACCU-CHEK XX ×6 (01:12→21:06)
[2018-06-19] MEDS: PROPOFOL 100 ML IV ×2 (05:32)
[2018-06-19 06:13] LABS: ANION GAP 12 (5-13); BLOOD UREA NITROGEN 21 mg/dl (7-20); CALCIUM 8.1 mg/dl (8.4-10.2); CARBON DIOXIDE 24 mmol/L (21-31); CHLORIDE 98 mmol/L (97-110); CREATININE 1.14 mg/dl (0.44-1.00); Estimated GFR 49 mL/min (>60); GLUCOSE 110 mg/dl (70-220); MAGNESIUM 1.8 mg/dl (1.7-2.5); PHOSPHORUS 2.2 mg/dl (2.5-4.9); POTASSIUM 3.6 mmol/L (3.5-5.1); SODIUM 134 mmol/L (135-144)
[2018-06-19] MEDS: LEVOTHYROXINE 75 MCG TAB PO (07:05)
[2018-06-19] MEDS: NORepinephrine 8MG/250 ML (PMX 250 ML IV (07:26)
[2018-06-19 07:27] LABS: ABNORMAL IP MESSAGE 1; HEMATOCRIT 21.8 % (37.0-47.0); HEMOGLOBIN 7.6 g/dl (12.0-16.0); MEAN CORPUSCULAR HEMOGLOBIN 31.3 pg (29.0-33.0); MEAN CORPUSCULAR HGB CONC 34.9 g/dl (32.0-37.0); MEAN CORPUSCULAR VOLUME 89.7 fl (82.0-101.0); MEAN PLATELET VOLUME 9.6 fl (7.4-10.4); RED BLOOD COUNT 2.43 10^6/ul (4.20-5.40); RED CELL DISTRIBUTION WIDTH 19.6 % (11.5-14.5)
[2018-06-19 07:41] LABS: PLATELET COUNT 9 10^3/UL (140-415); POSITIVE DIFF @See below
[2018-06-19 07:42] LABS: ADD MAN DIFF? YES
[2018-06-19] MEDS: NEUTRA-PHOS 250 MG PACKET GTB ×2 (09:01→20:54)
[2018-06-19] MEDS: MEROPENEM 500MG/50 ML (PMX) 50 ML IVPB ×2 (09:01→20:54)
[2018-06-19] MEDS: FOLIC ACID 1 MG TAB PO (09:02)
[2018-06-19] MEDS: AMIODARONE 200 MG TAB PO ×2 (09:02→20:54)
[2018-06-19] MEDS: BALSAM PERU/CASTOR OIL 60 GM TUBE TOP ×2 (09:03→20:55)
[2018-06-19] MEDS: FAMOTIDINE 20 MG INJ IV (09:23)
[2018-06-19 09:24] LABS: ANISOCYTOSIS 2+ (0-0); BAND NEUTROPHILS #M 0.7 10^3/ul (0.0-0.6); BAND NEUTROPHILS % (M) 13 % (0-4); BURR CELLS 3+ (0-0); LYMPHOCYTES % (M) 18 % (15-51); MONOCYTE #M 0.3 10^3/ul (0.3-0.9); MONOCYTES % (M) 6 % (0-11); PLATELET ESTIMATE SIG DECREASED; POIKILOCYTOSIS 3+ (0-0); SEG NEUT #M 3.8 10^3/ul (1.6-7.5); SEGMENTED NEUTROPHILS (M) % 63 % (39-77); SMUDGE%M 12 % (0-0)
[2018-06-19] MEDS: SOD CHLORIDE 0.9% 250 ML IV* (09:29)
[2018-06-19] MEDS: LIDOCAINE 1% (MPF) 5 ML VIAL SC (09:30)
[2018-06-19 09:31] LABS: IMMEDIATE SPIN CROSSMATCH 1 2
[2018-06-19] MEDS: CASPOFUNGIN 50 MG in SOD CHLORIDE 0.9% 250 ML IVPB (12:57)
[2018-06-19] MEDS: DAPTOMYCIN 320 MG in SOD CHLORIDE 0.9% 100 ML IVPB (17:16)
[2018-06-19] MEDS: DEXTROSE 50% 50 ML SYRINGE IV (17:25)
[2018-06-19] MEDS: LIDOCAINE 1% (MPF) 5 ML VIAL (18:56)
[2018-06-20] MEDS: ACCU-CHEK XX ×8 (01:16→23:04)
[2018-06-20] MEDS: DEXTROSE 50% 50 ML SYRINGE IV ×4 (01:16→17:41)
[2018-06-20] MEDS: ALTEPLASE (CATHFLO) 2 MG INJ CATHETER ×3 (04:44→09:04)
[2018-06-20] MEDS: PROPOFOL 100 ML IV ×3 (04:47→22:25)
[2018-06-20] MEDS: NORepinephrine 8MG/250 ML (PMX 250 ML IV ×2 (05:01→15:25)
[2018-06-20 05:39] LABS: ABNORMAL IP MESSAGE 1; HEMATOCRIT 22.9 % (37.0-47.0); HEMOGLOBIN 7.9 g/dl (12.0-16.0); MEAN CORPUSCULAR HEMOGLOBIN 30.6 pg (29.0-33.0); MEAN CORPUSCULAR HGB CONC 34.5 g/dl (32.0-37.0); MEAN CORPUSCULAR VOLUME 88.8 fl (82.0-101.0); RED BLOOD COUNT 2.58 10^6/ul (4.20-5.40); RED CELL DISTRIBUTION WIDTH 17.9 % (11.5-14.5)
[2018-06-20 05:39] LABS: WHITE BLOOD COUNT 7.7 10^3/ul (4.8-10.8)
[2018-06-20] MEDS: LEVOTHYROXINE 75 MCG TAB PO (06:01)
[2018-06-20 06:13] LABS: PLATELET COUNT 8 10^3/UL (140-415); POSITIVE DIFF @See below
[2018-06-20 06:14] LABS: ADD MAN DIFF? YES; ANION GAP 10 (5-13); BLOOD UREA NITROGEN 32 mg/dl (7-20); CALCIUM 7.6 mg/dl (8.4-10.2); CARBON DIOXIDE 22 mmol/L (21-31); CHLORIDE 97 mmol/L (97-110); CREATININE 1.28 mg/dl (0.44-1.00); Estimated GFR 43 mL/min (>60); GLUCOSE 188 mg/dl (70-220); MAGNESIUM 1.6 mg/dl (1.7-2.5); PHOSPHORUS 2.4 mg/dl (2.5-4.9); POTASSIUM 4.1 mmol/L (3.5-5.1); SODIUM 129 mmol/L (135-144)
[2018-06-20] MEDS: AMIODARONE 200 MG TAB PO (08:14)
[2018-06-20] MEDS: FOLIC ACID 1 MG TAB PO (08:14)
[2018-06-20] MEDS: FAMOTIDINE 20 MG TAB PO (08:14)
[2018-06-20] MEDS: MEROPENEM 500MG/50 ML (PMX) 50 ML IVPB ×2 (08:14→21:35)
[2018-06-20] MEDS: MAGNESIUM SULFATE 2 GM/50 ML 50 ML IVPB (08:14)
[2018-06-20] MEDS: NEUTRA-PHOS 250 MG PACKET GTB ×2 (08:14→21:35)
[2018-06-20] MEDS: BALSAM PERU/CASTOR OIL 60 GM TUBE TOP ×2 (08:25→21:46)
[2018-06-20] MEDS: AMIODARONE 900 MG in DEXTROSE 5% 482 ML IV (09:02)
[2018-06-20 09:26] LABS: ANISOCYTOSIS 2+ (0-0); BAND NEUTROPHILS #M 0.1 10^3/ul (0.0-0.6); BAND NEUTROPHILS % (M) 2 % (0-4); BURR CELLS 3+ (0-0); EOSINOPHILS % (M) 1 % (0-7); GIANT THROMBO% (M) 1 % (0-0); LYMPHOCYTES #M 1.6 10^3/ul (0.8-2.9); LYMPHOCYTES % (M) 22 % (15-51); PLATELET ESTIMATE SIG DECREASED; POIKILOCYTOSIS 3+ (0-0); REACTIVE LYMPHOCYTES #M 0.3 10^3/ul (0.0-0.0); REACTIVE LYMPHOCYTES% (M) 4 % (0-0); SEG NEUT #M 5.5 10^3/ul (1.6-7.5); SEGMENTED NEUTROPHILS (M) % 71 % (39-77); SMUDGE%M 18 % (0-0)
[2018-06-20] MEDS ORDERED: ALBUMIN HUMAN 25% 100 ML (13:37)
[2018-06-20] MEDS: CASPOFUNGIN 50 MG in SOD CHLORIDE 0.9% 250 ML IVPB (13:42)
[2018-06-20] MEDS: CLINDAMYCIN 600 MG/D5W (PMX) 50 ML IVPB ×2 (15:21→22:21)
[2018-06-20] MEDS: HEPARIN 1000 UNITS/ML 10 ML INJ CATHETER (16:16)
[2018-06-20] MEDS: DEXTROSE 10% 1,000 ML IV (22:21)
[2018-06-21] MEDS: ACCU-CHEK XX ×8 (01:24→21:02)
[2018-06-21] MEDS: NORepinephrine 8MG/250 ML (PMX 250 ML IV ×2 (01:47→15:58)
[2018-06-21 05:17] LABS: ABNORMAL IP MESSAGE 1; HEMOGLOBIN 7.3 g/dl (12.0-16.0); MEAN CORPUSCULAR HEMOGLOBIN 30.5 pg (29.0-33.0); MEAN CORPUSCULAR HGB CONC 34.8 g/dl (32.0-37.0); MEAN CORPUSCULAR VOLUME 87.9 fl (82.0-101.0); RED BLOOD COUNT 2.39 10^6/ul (4.20-5.40); RED CELL DISTRIBUTION WIDTH 17.6 % (11.5-14.5)
[2018-06-21 05:17] LABS: WHITE BLOOD COUNT 7.8 10^3/ul (4.8-10.8)
[2018-06-21 05:18] LABS: POSITIVE DIFF @See below
[2018-06-21 05:19] LABS: ADD MAN DIFF? YES; PLATELET COUNT 7 10^3/UL (140-415)
[2018-06-21] MEDS: CLINDAMYCIN 600 MG/D5W (PMX) 50 ML IVPB ×3 (05:25→21:38)
[2018-06-21] MEDS: AMIODARONE 900 MG in DEXTROSE 5% 482 ML IV (05:25)
[2018-06-21 05:44] LABS: ANION GAP 13 (5-13); BLOOD UREA NITROGEN 24 mg/dl (7-20); CALCIUM 7.8 mg/dl (8.4-10.2); CARBON DIOXIDE 24 mmol/L (21-31); CHLORIDE 97 mmol/L (97-110); CREATININE 1.08 mg/dl (0.44-1.00); Estimated GFR 52 mL/min (>60); GLUCOSE 85 mg/dl (70-220); MAGNESIUM 1.9 mg/dl (1.7-2.5); PHOSPHORUS 3.2 mg/dl (2.5-4.9); POTASSIUM 3.9 mmol/L (3.5-5.1); SODIUM 134 mmol/L (135-144)
[2018-06-21] MEDS: LEVOTHYROXINE 75 MCG TAB PO (06:36)
[2018-06-21 07:41] LABS: ANISOCYTOSIS 1+ (0-0); BURR CELLS 2+ (0-0); EOSINOPHILS % (M) 1 % (0-7); GIANT THROMBO% (M) 5 % (0-0); LYMPHOCYTES #M 1.3 10^3/ul (0.8-2.9); LYMPHOCYTES % (M) 17 % (15-51); MONOCYTES % (M) 1 % (0-11); PLATELET ESTIMATE SIG DECREASED; POIKILOCYTOSIS 2+ (0-0); SEGMENTED NEUTROPHILS (M) % 81 % (39-77); SMUDGE%M 47 % (0-0)
[2018-06-21] MEDS: BALSAM PERU/CASTOR OIL 60 GM TUBE TOP ×2 (08:10→20:57)
[2018-06-21] MEDS: FOLIC ACID 1 MG TAB PO (08:10)
[2018-06-21] MEDS: FAMOTIDINE 20 MG TAB PO (08:10)
[2018-06-21] MEDS: NEUTRA-PHOS 250 MG PACKET GTB ×2 (08:10→20:57)
[2018-06-21] MEDS: MEROPENEM 500MG/50 ML (PMX) 50 ML IVPB ×2 (08:11→20:57)
[2018-06-21 10:28] LABS: WHITE BLOOD COUNT 12.7 10^3/ul (4.8-10.8)
[2018-06-21 10:28] LABS: ABNORMAL IP MESSAGE 1; HEMATOCRIT 19.8 % (37.0-47.0); MEAN CORPUSCULAR HEMOGLOBIN 30.2 pg (29.0-33.0); MEAN CORPUSCULAR HGB CONC 34.3 g/dl (32.0-37.0); RED BLOOD COUNT 2.25 10^6/ul (4.20-5.40); RED CELL DISTRIBUTION WIDTH 17.8 % (11.5-14.5)
[2018-06-21 10:32] LABS: ADD MAN DIFF? YES; MEAN PLATELET VOLUME 13.8 fl (7.4-10.4); POSITIVE DIFF @See below
[2018-06-21 10:41] LABS: HEMOGLOBIN 6.8 g/dl (12.0-16.0); PLATELET COUNT 14 10^3/UL (140-415)
[2018-06-21 11:10] LABS: ANISOCYTOSIS 1+ (0-0); BURR CELLS 1+ (0-0); LYMPHOCYTES #M 1.9 10^3/ul (0.8-2.9); LYMPHOCYTES % (M) 15 % (15-51); OVALOCYTES 1+ (0-0); PLATELET ESTIMATE SIG DECREASED; POIKILOCYTOSIS 1+ (0-0); SEGMENTED NEUTROPHILS (M) % 85 % (39-77); SMUDGE%M 13 % (0-0)
[2018-06-21] MEDS: PROPOFOL 100 ML IV ×2 (11:59→20:57)
[2018-06-21] MEDS: CASPOFUNGIN 50 MG in SOD CHLORIDE 0.9% 250 ML IVPB (12:38)
[2018-06-21] MEDS: DEXTROSE 10% 1,000 ML IV (15:34)
[2018-06-22] MEDS: ACCU-CHEK XX ×6 (01:00→21:01)
[2018-06-22 01:56] LABS: IMMEDIATE SPIN CROSSMATCH 1 2
[2018-06-22] MEDS: DEXTROSE 10% 1,000 ML IV ×2 (02:05→15:26)
[2018-06-22] MEDS: AMIODARONE 900 MG in DEXTROSE 5% 482 ML IV (05:03)
[2018-06-22 05:16] LABS: WHITE BLOOD COUNT 8.6 10^3/ul (4.8-10.8)
[2018-06-22 05:17] LABS: ABNORMAL IP MESSAGE 1; HEMATOCRIT 18.3 % (37.0-47.0); MEAN CORPUSCULAR HEMOGLOBIN 30.6 pg (29.0-33.0); MEAN CORPUSCULAR VOLUME 87.6 fl (82.0-101.0); MEAN PLATELET VOLUME 10.6 fl (7.4-10.4); PLATELET COUNT 34 10^3/UL (140-415); RED BLOOD COUNT 2.09 10^6/ul (4.20-5.40); RED CELL DISTRIBUTION WIDTH 17.7 % (11.5-14.5)
[2018-06-22 05:39] LABS: ANION GAP 13 (5-13); BLOOD UREA NITROGEN 37 mg/dl (7-20); CALCIUM 7.7 mg/dl (8.4-10.2); CARBON DIOXIDE 23 mmol/L (21-31); CHLORIDE 95 mmol/L (97-110); CREATININE 1.36 mg/dl (0.44-1.00); Estimated GFR 40 mL/min (>60); GLUCOSE 62 mg/dl (70-220); MAGNESIUM 1.8 mg/dl (1.7-2.5); PHOSPHORUS 4.5 mg/dl (2.5-4.9); POTASSIUM 4.1 mmol/L (3.5-5.1); SODIUM 131 mmol/L (135-144)
[2018-06-22 05:58] LABS: POSITIVE DIFF @See below
[2018-06-22 06:00] LABS: ADD MAN DIFF? YES; HEMOGLOBIN 6.4 g/dl (12.0-16.0)
[2018-06-22] MEDS: CLINDAMYCIN 600 MG/D5W (PMX) 50 ML IVPB ×3 (06:31→22:50)
[2018-06-22] MEDS: LEVOTHYROXINE 75 MCG TAB PO (06:31)
[2018-06-22] MEDS: NEUTRA-PHOS 250 MG PACKET GTB ×2 (08:16→21:00)
[2018-06-22] MEDS: FOLIC ACID 1 MG TAB PO (08:17)
[2018-06-22] MEDS: FAMOTIDINE 20 MG TAB PO (08:17)
[2018-06-22] MEDS: BALSAM PERU/CASTOR OIL 60 GM TUBE TOP ×2 (08:17→21:01)
[2018-06-22] MEDS: MEROPENEM 500MG/50 ML (PMX) 50 ML IVPB ×2 (08:17→21:00)
[2018-06-22 08:22] LABS: ACANTHOCYTES 1+ (0-0); ANISOCYTOSIS 2+ (0-0); BURR CELLS 2+ (0-0); HYPOCHROMASIA 3+ (0-0); LYMPHOCYTES #M 1.4 10^3/ul (0.8-2.9); LYMPHOCYTES % (M) 17 % (15-51); MONOCYTES % (M) 1 % (0-11); MYELOCYTES % (M) 1 % (0-0); OVALOCYTES 1+ (0-0); PLASMAC%(M) 1 % (0); PLATELET ESTIMATE DECREASED; POIKILOCYTOSIS 2+ (0-0); POLYCHROMASIA 1+ (0-0); SEGMENTED NEUTROPHILS (M) % 80 % (39-77); SMUDGE%M 5 % (0-0); TARGET CELLS 1+ (0-0)
[2018-06-22] MEDS: NORepinephrine 8MG/250 ML (PMX 250 ML IV ×2 (09:18→22:43)
[2018-06-22 10:39] LABS: IMMEDIATE SPIN CROSSMATCH 1 2
[2018-06-22] MEDS: PROPOFOL 100 ML IV ×2 (11:24→22:39)
[2018-06-22] MEDS: HEPARIN 1000 UNITS/ML 10 ML INJ CATHETER (12:58)
[2018-06-22] MEDS: CASPOFUNGIN 50 MG in SOD CHLORIDE 0.9% 250 ML IVPB (13:24)
[2018-06-23] MEDS: ACCU-CHEK XX ×6 (01:00→22:08)
[2018-06-23] MEDS: CLINDAMYCIN 600 MG/D5W (PMX) 50 ML IVPB ×3 (05:39→22:08)
[2018-06-23 05:47] LABS: ALANINE AMINOTRANSFERASE 10 IU/L (13-69); ALBUMIN 2.3 g/dl (3.3-4.9); ALBUMIN/GLOBULIN RATIO 0.79; ALKALINE PHOSPHATASE 216 IU/L (42-121); ANION GAP 12 (5-13); ASPARTATE AMINO TRANSFERASE 30 IU/L (15-46); BILIRUBIN,INDIRECT 1.7 mg/dl (0-1.1); BILIRUBIN,TOTAL 3.3 mg/dl (0.2-1.3); BLOOD UREA NITROGEN 35 mg/dl (7-20); CARBON DIOXIDE 20 mmol/L (21-31); CHLORIDE 98 mmol/L (97-110); CREATININE 1.08 mg/dl (0.44-1.00); Estimated GFR 52 mL/min (>60); GLUCOSE 102 mg/dl (70-220); POTASSIUM 4.7 mmol/L (3.5-5.1); SODIUM 130 mmol/L (135-144); TOTAL PROTEIN 5.2 g/dl (6.1-8.1)
[2018-06-23 05:56] LABS: ABNORMAL IP MESSAGE 1; HEMATOCRIT 35.9 % (37.0-47.0); HEMOGLOBIN 12.6 g/dl (12.0-16.0); MEAN CORPUSCULAR HEMOGLOBIN 28.9 pg (29.0-33.0); MEAN CORPUSCULAR HGB CONC 35.1 g/dl (32.0-37.0); MEAN CORPUSCULAR VOLUME 82.3 fl (82.0-101.0); NUCLEATED RED BLOOD CELLS% 0.3 /100WBC (0.0-0.0); RED BLOOD COUNT 4.36 10^6/ul (4.20-5.40); RED CELL DISTRIBUTION WIDTH 15.3 % (11.5-14.5)
[2018-06-23 05:56] LABS: WHITE BLOOD COUNT 11.6 10^3/ul (4.8-10.8)
[2018-06-23 06:22] LABS: ADD MAN DIFF? YES; PLATELET COUNT 10 10^3/UL (140-415); POSITIVE DIFF @See below
[2018-06-23] MEDS: LEVOTHYROXINE 75 MCG TAB PO (06:44)
[2018-06-23] MEDS: LEVOTHYROXINE 75 MCG TAB NGT ×2 (07:00→08:36)
[2018-06-23] MEDS: DEXTROSE 10% 1,000 ML IV (08:35)
[2018-06-23] MEDS: NEUTRA-PHOS 250 MG PACKET GTB ×2 (08:36→22:08)
[2018-06-23] MEDS: FOLIC ACID 1 MG TAB PO (08:36)
[2018-06-23] MEDS: FAMOTIDINE 20 MG TAB PO (08:36)
[2018-06-23] MEDS: AMIODARONE 900 MG in DEXTROSE 5% 482 ML IV (08:46)
[2018-06-23] MEDS: BALSAM PERU/CASTOR OIL 60 GM TUBE TOP ×2 (08:47→22:08)
[2018-06-23] MEDS: MEROPENEM 500MG/50 ML (PMX) 50 ML IVPB ×2 (08:52→22:08)
[2018-06-23 09:30] LABS: ANISOCYTOSIS 2+ (0-0); BAND NEUTROPHILS #M 0.1 10^3/ul (0.0-0.6); BAND NEUTROPHILS % (M) 1 % (0-4); BURR CELLS 2+ (0-0); EOSINOPHILS % (M) 2 % (0-7); LYMPHOCYTES #M 2.3 10^3/ul (0.8-2.9); LYMPHOCYTES % (M) 20 % (15-51); MONOCYTE #M 0.2 10^3/ul (0.3-0.9); MONOCYTES % (M) 2 % (0-11); PLATELET ESTIMATE SIG DECREASED; POIKILOCYTOSIS 3+ (0-0); SEG NEUT #M 8.7 10^3/ul (1.6-7.5); SEGMENTED NEUTROPHILS (M) % 75 % (39-77); SMUDGE%M 9 % (0-0); TOXIC GRANULATION 1+ (0-0)
[2018-06-23] MEDS: MIDAZOLAM (DRIP) 50 mg/50 mL 50 ML IV (11:16)
[2018-06-23] MEDS: PROPOFOL 100 ML IV (12:00)
[2018-06-23 13:21] LABS: HAAIG REFLEX REFLEX FILED
[2018-06-23] MEDS: CASPOFUNGIN 50 MG in SOD CHLORIDE 0.9% 250 ML IVPB (13:56)
[2018-06-23 14:28] LABS: HEPATITIS B SURFACE ANTIGEN NEGATIVE (NEGATIVE)
[2018-06-23 14:46] LABS: HEPATITIS B CORE ANTIBODY NEGATIVE (NEGATIVE); HEPATITIS C VIRAL ANTIBODY NEGATIVE (NEGATIVE)
[2018-06-23] MEDS: NORepinephrine 8MG/250 ML (PMX 250 ML IV (16:26)
[2018-06-24] MEDS: ACCU-CHEK XX ×6 (01:00→20:43)
[2018-06-24] MEDS: MIDAZOLAM (DRIP) 50 mg/50 mL 50 ML IV (05:15)
[2018-06-24] MEDS: CLINDAMYCIN 600 MG/D5W (PMX) 50 ML IVPB ×3 (05:16→22:51)
[2018-06-24 05:29] LABS: ABNORMAL IP MESSAGE 1; HEMATOCRIT 34.7 % (37.0-47.0); HEMOGLOBIN 12.3 g/dl (12.0-16.0); MEAN CORPUSCULAR HEMOGLOBIN 29.1 pg (29.0-33.0); MEAN CORPUSCULAR HGB CONC 35.4 g/dl (32.0-37.0); MEAN CORPUSCULAR VOLUME 82.2 fl (82.0-101.0); RED BLOOD COUNT 4.22 10^6/ul (4.20-5.40); RED CELL DISTRIBUTION WIDTH 15.7 % (11.5-14.5)
[2018-06-24 05:29] LABS: WHITE BLOOD COUNT 13.2 10^3/ul (4.8-10.8)
[2018-06-24 05:46] LABS: INR 1.57; PROTIME 18.9 Sec (11.9-14.9); PT RATIO 1.5
[2018-06-24 06:10] LABS: ANION GAP 11 (5-13); BLOOD UREA NITROGEN 48 mg/dl (7-20); CALCIUM 7.4 mg/dl (8.4-10.2); CARBON DIOXIDE 20 mmol/L (21-31); CHLORIDE 96 mmol/L (97-110); CREATININE 1.38 mg/dl (0.44-1.00); Estimated GFR 39 mL/min (>60); GLUCOSE 107 mg/dl (70-220); MAGNESIUM 1.8 mg/dl (1.7-2.5); PHOSPHORUS 6.9 mg/dl (2.5-4.9); POTASSIUM 4.9 mmol/L (3.5-5.1); SODIUM 127 mmol/L (135-144)
[2018-06-24 06:26] LABS: ADD MAN DIFF? YES; PLATELET COUNT 18 10^3/UL (140-415); POSITIVE DIFF @See below
[2018-06-24 07:50] LABS: ANISOCYTOSIS 1+ (0-0); BAND NEUTROPHILS #M 0.2 10^3/ul (0.0-0.6); BAND NEUTROPHILS % (M) 2 % (0-4); BURR CELLS 1+ (0-0); LYMPHOCYTES #M 2.2 10^3/ul (0.8-2.9); LYMPHOCYTES % (M) 17 % (15-51); MONOCYTE #M 0.3 10^3/ul (0.3-0.9); MONOCYTES % (M) 3 % (0-11); PLATELET ESTIMATE SIG DECREASED; POIKILOCYTOSIS 1+ (0-0); SEG NEUT #M 10.3 10^3/ul (1.6-7.5); SEGMENTED NEUTROPHILS (M) % 78 % (39-77); SMUDGE%M 8 % (0-0)
[2018-06-24] MEDS ORDERED: MISCELLANEOUS IV SOLUTION 1,000 ML IV (08:00)
[2018-06-24] MEDS: FAMOTIDINE 20 MG TAB PO (08:17)
[2018-06-24] MEDS: MEROPENEM 500MG/50 ML (PMX) 50 ML IVPB ×2 (08:17→20:42)
[2018-06-24] MEDS: BALSAM PERU/CASTOR OIL 60 GM TUBE TOP ×2 (08:17→20:43)
[2018-06-24] MEDS: FOLIC ACID 1 MG TAB PO (08:17)
[2018-06-24] MEDS: ALBUMIN HUMAN 25% 100 ML IV ×2 (09:47→10:56)
[2018-06-24] MEDS: AMIODARONE 200 MG TAB PO ×2 (09:55→20:43)
[2018-06-24] MEDS: SODIUM CHLORIDE 23.4% 154 MEQ in DEXTROSE 10% 1,000 ML IV (10:24)
[2018-06-24] MEDS: NORepinephrine 8MG/250 ML (PMX 250 ML IV (11:17)
[2018-06-24] MEDS: PROPOFOL 100 ML IV ×2 (12:00)
[2018-06-24] MEDS: HEPARIN 1000 UNITS/ML 10 ML INJ CATHETER (12:27)
[2018-06-24] MEDS: CASPOFUNGIN 50 MG in SOD CHLORIDE 0.9% 250 ML IVPB (12:28)
[2018-06-24 16:41] LABS: AMMONIA < 9 umol/l (9-30)
[2018-06-24 17:18] LABS: THYROID STIMULATING HORMONE 0.538 MIU/L (0.465-4.680)
[2018-06-25] MEDS: ACCU-CHEK XX ×6 (01:53→20:51)
[2018-06-25] MEDS: LEVOTHYROXINE 75 MCG TAB NGT (06:12)
[2018-06-25] MEDS: CLINDAMYCIN 600 MG/D5W (PMX) 50 ML IVPB ×3 (06:12→21:00)
[2018-06-25] MEDS: NORepinephrine 8MG/250 ML (PMX 250 ML IV (06:17)
[2018-06-25 06:21] LABS: WHITE BLOOD COUNT 11.2 10^3/ul (4.8-10.8)
[2018-06-25 06:21] LABS: ABNORMAL IP MESSAGE 1; HEMATOCRIT 30.3 % (37.0-47.0); HEMOGLOBIN 10.9 g/dl (12.0-16.0); MEAN CORPUSCULAR HEMOGLOBIN 29.9 pg (29.0-33.0); MEAN CORPUSCULAR VOLUME 83.2 fl (82.0-101.0); RED BLOOD COUNT 3.64 10^6/ul (4.20-5.40); RED CELL DISTRIBUTION WIDTH 15.9 % (11.5-14.5)
[2018-06-25 06:26] LABS: ADD MAN DIFF? YES; PLATELET COUNT 18 10^3/UL (140-415); POSITIVE DIFF @See below
[2018-06-25 07:54] LABS: ANION GAP 12 (5-13); BLOOD UREA NITROGEN 42 mg/dl (7-20); CALCIUM 7.7 mg/dl (8.4-10.2); CARBON DIOXIDE 20 mmol/L (21-31); CHLORIDE 102 mmol/L (97-110); CREATININE 1.03 mg/dl (0.44-1.00); Estimated GFR 55 mL/min (>60); GLUCOSE 117 mg/dl (70-220); MAGNESIUM 1.8 mg/dl (1.7-2.5); POTASSIUM 4.3 mmol/L (3.5-5.1); SODIUM 134 mmol/L (135-144)
[2018-06-25 08:07] LABS: ANISOCYTOSIS 2+ (0-0); BAND NEUTROPHILS #M 1.4 10^3/ul (0.0-0.6); BAND NEUTROPHILS % (M) 13 % (0-4); BURR CELLS 3+ (0-0); GIANT THROMBO% (M) 3 % (0-0); LYMPHOCYTES #M 2.3 10^3/ul (0.8-2.9); LYMPHOCYTES % (M) 21 % (15-51); MONOCYTE #M 0.4 10^3/ul (0.3-0.9); MONOCYTES % (M) 4 % (0-11); PLATELET ESTIMATE SIG DECREASED; POIKILOCYTOSIS 3+ (0-0); REACTIVE LYMPHOCYTES #M 0.1 10^3/ul (0.0-0.0); REACTIVE LYMPHOCYTES% (M) 1 % (0-0); SEGMENTED NEUTROPHILS (M) % 61 % (39-77); SMUDGE%M 15 % (0-0); SPHEROCYTES 1+ (0-0)
[2018-06-25] MEDS: MEROPENEM 500MG/50 ML (PMX) 50 ML IVPB ×2 (09:14→20:51)
[2018-06-25] MEDS: FAMOTIDINE 20 MG TAB PO (09:15)
[2018-06-25] MEDS: AMIODARONE 200 MG TAB PO ×2 (09:15→20:51)
[2018-06-25] MEDS: BALSAM PERU/CASTOR OIL 60 GM TUBE TOP ×2 (09:15→20:52)
[2018-06-25] MEDS: FOLIC ACID 1 MG TAB PO (09:15)
[2018-06-25] MEDS: CASPOFUNGIN 50 MG in SOD CHLORIDE 0.9% 250 ML IVPB (13:05)
[2018-06-25] MEDS: COLLAGENASE 5 GM (UD JAR) TOP (17:08)
[2018-06-25] MEDS: PROPOFOL 100 ML IV ×2 (20:45)
[2018-06-25] MEDS: SODIUM CHLORIDE 23.4% 154 MEQ in DEXTROSE 10% 1,000 ML IV (20:58)
[2018-06-25] MEDS: ONDANSETRON 4 MG INJ IV (23:05)
[2018-06-26] MEDS: ACCU-CHEK XX ×6 (01:41→21:20)
[2018-06-26 05:34] LABS: WHITE BLOOD COUNT 11.6 10^3/ul (4.8-10.8)
[2018-06-26 05:34] LABS: ABNORMAL IP MESSAGE 1; HEMOGLOBIN 10.7 g/dl (12.0-16.0); MEAN CORPUSCULAR HEMOGLOBIN 29.2 pg (29.0-33.0); MEAN CORPUSCULAR HGB CONC 34.5 g/dl (32.0-37.0); MEAN CORPUSCULAR VOLUME 84.5 fl (82.0-101.0); RED BLOOD COUNT 3.67 10^6/ul (4.20-5.40); RED CELL DISTRIBUTION WIDTH 16.7 % (11.5-14.5)
[2018-06-26] MEDS: CLINDAMYCIN 600 MG/D5W (PMX) 50 ML IVPB ×3 (05:46→21:20)
[2018-06-26] MEDS: NORepinephrine 8MG/250 ML (PMX 250 ML IV ×2 (05:52→21:41)
[2018-06-26 06:21] LABS: ANION GAP 11 (5-13); BLOOD UREA NITROGEN 52 mg/dl (7-20); CALCIUM 7.6 mg/dl (8.4-10.2); CARBON DIOXIDE 20 mmol/L (21-31); CHLORIDE 103 mmol/L (97-110); CREATININE 1.15 mg/dl (0.44-1.00); Estimated GFR 48 mL/min (>60); GLUCOSE 101 mg/dl (70-220); MAGNESIUM 1.8 mg/dl (1.7-2.5); PHOSPHORUS 4.7 mg/dl (2.5-4.9); SODIUM 134 mmol/L (135-144)
[2018-06-26 06:31] LABS: ADD MAN DIFF? YES; PLATELET COUNT 24 10^3/UL (140-415); POSITIVE DIFF @See below
[2018-06-26] MEDS: FOLIC ACID 1 MG TAB PO (08:15)
[2018-06-26] MEDS: LEVOTHYROXINE 75 MCG TAB NGT (08:15)
[2018-06-26] MEDS: FAMOTIDINE 20 MG TAB PO (08:15)
[2018-06-26] MEDS: MEROPENEM 500MG/50 ML (PMX) 50 ML IVPB ×2 (08:16→21:19)
[2018-06-26] MEDS: AMIODARONE 200 MG TAB PO (08:16)
[2018-06-26] MEDS: COLLAGENASE 5 GM (UD JAR) TOP (08:21)
[2018-06-26] MEDS: BALSAM PERU/CASTOR OIL 60 GM TUBE TOP ×2 (08:21→21:20)
[2018-06-26 09:00] LABS: ANISOCYTOSIS 2+ (0-0); BAND NEUTROPHILS % (M) 18 % (0-4); BURR CELLS 1+ (0-0); GIANT THROMBO% (M) 3 % (0-0); HYPOCHROMASIA 1+ (0-0); LYMPHOCYTES #M 0.4 10^3/ul (0.8-2.9); LYMPHOCYTES % (M) 4 % (15-51); MICROCYTOSIS 1+ (0-0); MONOCYTE #M 0.3 10^3/ul (0.3-0.9); MONOCYTES % (M) 3 % (0-11); PLATELET ESTIMATE SIG DECREASED; POIKILOCYTOSIS 2+ (0-0); SEG NEUT #M 8.9 10^3/ul (1.6-7.5); SEGMENTED NEUTROPHILS (M) % 75 % (39-77); SMUDGE%M 65 % (0-0)
[2018-06-26] MEDS: EPOETIN ALFA-EPBX (ESRD) 10,000 UNIT/ML VIAL SC (09:44)
[2018-06-26] MEDS: SODIUM CHLORIDE 23.4% 154 MEQ in DEXTROSE 10% 1,000 ML IV (10:00)
[2018-06-26] MEDS: PROPOFOL 100 ML IV ×2 (10:22)
[2018-06-26 10:32] LABS: AADO2 Arterial 88.2 mmHg (7.0-24.0); Arterial Base Excess -4.6 mmol/L (-3.0-3); Arterial Blood Gas Oxygen Sat 93.8 mmHG (95.0-98.0); Arterial COHb 0.5 % (0.0-3.0); Arterial MetHb 0.3 % (0.0-1.5); Blood Gas PS 10; MODE VENT - CPAP; Site Right Brachial
[2018-06-26] MEDS ORDERED: AMIODARONE 150MG/D5W BOLUS 100 ML (15:33)
[2018-06-26] MEDS: AMIODARONE 150MG/D5W BOLUS 100 ML IV (15:40)
[2018-06-26] MEDS: ALTEPLASE (CATHFLO) 2 MG INJ CATHETER (15:47)
[2018-06-26] MEDS: CASPOFUNGIN 50 MG in SOD CHLORIDE 0.9% 250 ML IVPB (15:53)
[2018-06-26] MEDS: AMIODARONE 900 MG in DEXTROSE 5% 482 ML IV (17:21)
[2018-06-27] MEDS: ACCU-CHEK XX ×6 (01:28→20:33)
[2018-06-27 05:18] LABS: WHITE BLOOD COUNT 11.5 10^3/ul (4.8-10.8)
[2018-06-27 05:18] LABS: ABNORMAL IP MESSAGE 1; HEMATOCRIT 30.2 % (37.0-47.0); HEMOGLOBIN 10.3 g/dl (12.0-16.0); MEAN CORPUSCULAR HEMOGLOBIN 29.6 pg (29.0-33.0); MEAN CORPUSCULAR HGB CONC 34.1 g/dl (32.0-37.0); MEAN CORPUSCULAR VOLUME 86.8 fl (82.0-101.0); RED BLOOD COUNT 3.48 10^6/ul (4.20-5.40); RED CELL DISTRIBUTION WIDTH 17.5 % (11.5-14.5)
[2018-06-27 05:29] LABS: PLATELET COUNT 24 10^3/UL (140-415); POSITIVE DIFF @See below
[2018-06-27 05:30] LABS: ADD MAN DIFF? YES
[2018-06-27] MEDS: CLINDAMYCIN 600 MG/D5W (PMX) 50 ML IVPB ×3 (05:38→21:19)
[2018-06-27 05:47] LABS: ANION GAP 10 (5-13); BLOOD UREA NITROGEN 48 mg/dl (7-20); CALCIUM 7.3 mg/dl (8.4-10.2); CARBON DIOXIDE 21 mmol/L (21-31); CHLORIDE 103 mmol/L (97-110); CREATININE 1.18 mg/dl (0.44-1.00); Estimated GFR 47 mL/min (>60); GLUCOSE 132 mg/dl (70-220); MAGNESIUM 1.7 mg/dl (1.7-2.5); POTASSIUM 3.5 mmol/L (3.5-5.1); SODIUM 134 mmol/L (135-144)
[2018-06-27] MEDS: LEVOTHYROXINE 75 MCG TAB NGT (06:13)
[2018-06-27] MEDS: SODIUM CHLORIDE 23.4% 154 MEQ in DEXTROSE 10% 1,000 ML IV (06:33)
[2018-06-27 06:50] LABS: ANISOCYTOSIS 1+ (0-0); BAND NEUTROPHILS #M 0.1 10^3/ul (0.0-0.6); BAND NEUTROPHILS % (M) 1 % (0-4); BASOPHIL #M 0.4 10^3/ul (0.0-0.0); BASOPHILS % (M) 4 % (0-2); BURR CELLS 1+ (0-0); GIANT THROMBO% (M) 1 % (0-0); LYMPHOCYTES #M 1.6 10^3/ul (0.8-2.9); LYMPHOCYTES % (M) 14 % (15-51); MONOCYTE #M 0.3 10^3/ul (0.3-0.9); MONOCYTES % (M) 3 % (0-11); PLATELET ESTIMATE SIG DECREASED; POIKILOCYTOSIS 1+ (0-0); SEGMENTED NEUTROPHILS (M) % 78 % (39-77); SMUDGE%M 7 % (0-0)
[2018-06-27] MEDS: MEROPENEM 500MG/50 ML (PMX) 50 ML IVPB ×2 (08:27→20:32)
[2018-06-27] MEDS: FOLIC ACID 1 MG TAB PO (08:27)
[2018-06-27] MEDS: COLLAGENASE 5 GM (UD JAR) TOP (08:27)
[2018-06-27] MEDS: FAMOTIDINE 20 MG TAB PO (08:27)
[2018-06-27] MEDS: BALSAM PERU/CASTOR OIL 60 GM TUBE TOP ×2 (08:28→20:33)
[2018-06-27] MEDS: PROPOFOL 100 ML IV ×2 (12:00)
[2018-06-27] MEDS: CASPOFUNGIN 50 MG in SOD CHLORIDE 0.9% 250 ML IVPB (14:51)
[2018-06-27] MEDS: DEXTROSE 50% 50 ML SYRINGE IV (16:34)
[2018-06-27] MEDS: ONDANSETRON 4 MG INJ IV (17:02)
[2018-06-27] MEDS: AMIODARONE 200 MG TAB NGT (20:32)
[2018-06-27] MEDS: NORepinephrine 8MG/250 ML (PMX 250 ML IV (21:29)
[2018-06-28] MEDS: ACCU-CHEK XX ×6 (01:46→20:52)
[2018-06-28 05:14] LABS: WHITE BLOOD COUNT 8.6 10^3/ul (4.8-10.8)
[2018-06-28 05:14] LABS: ABNORMAL IP MESSAGE 1; HEMATOCRIT 27.8 % (37.0-47.0); HEMOGLOBIN 9.6 g/dl (12.0-16.0); MEAN CORPUSCULAR HEMOGLOBIN 29.7 pg (29.0-33.0); MEAN CORPUSCULAR HGB CONC 34.5 g/dl (32.0-37.0); MEAN CORPUSCULAR VOLUME 86.1 fl (82.0-101.0); PLATELET COUNT 37 10^3/UL (140-415); RED BLOOD COUNT 3.23 10^6/ul (4.20-5.40); RED CELL DISTRIBUTION WIDTH 18.1 % (11.5-14.5)
[2018-06-28] MEDS: CLINDAMYCIN 600 MG/D5W (PMX) 50 ML IVPB ×2 (05:25→13:29)
[2018-06-28 05:35] LABS: ADD MAN DIFF? YES; POSITIVE DIFF @See below
[2018-06-28 05:39] LABS: ANION GAP 11 (5-13); BLOOD UREA NITROGEN 58 mg/dl (7-20); CALCIUM 7.1 mg/dl (8.4-10.2); CARBON DIOXIDE 20 mmol/L (21-31); CHLORIDE 102 mmol/L (97-110); CREATININE 1.49 mg/dl (0.44-1.00); Estimated GFR 36 mL/min (>60); GLUCOSE 76 mg/dl (70-220); MAGNESIUM 1.7 mg/dl (1.7-2.5); PHOSPHORUS 4.7 mg/dl (2.5-4.9); SODIUM 133 mmol/L (135-144)
[2018-06-28] MEDS: LEVOTHYROXINE 75 MCG TAB NGT (06:50)
[2018-06-28 07:32] LABS: ANISOCYTOSIS 1+ (0-0); BAND NEUTROPHILS #M 0.6 10^3/ul (0.0-0.6); BAND NEUTROPHILS % (M) 7 % (0-4); BASOPHILS % (M) 1 % (0-2); BURR CELLS 1+ (0-0); EOSINOPHILS % (M) 1 % (0-7); HYPOCHROMASIA 1+ (0-0); LYMPHOCYTES #M 2.2 10^3/ul (0.8-2.9); LYMPHOCYTES % (M) 26 % (15-51); MONOCYTE #M 0.1 10^3/ul (0.3-0.9); MONOCYTES % (M) 2 % (0-11); PLATELET ESTIMATE SIG DECREASED; POIKILOCYTOSIS 1+ (0-0); REACTIVE LYMPHOCYTES #M 0.1 10^3/ul (0.0-0.0); REACTIVE LYMPHOCYTES% (M) 2 % (0-0); SEG NEUT #M 5.3 10^3/ul (1.6-7.5); SEGMENTED NEUTROPHILS (M) % 61 % (39-77); SMUDGE%M 3 % (0-0)
[2018-06-28] MEDS: BALSAM PERU/CASTOR OIL 60 GM TUBE TOP ×2 (09:00→20:54)
[2018-06-28] MEDS: COLLAGENASE 5 GM (UD JAR) TOP (09:00)
[2018-06-28] MEDS: ALBUMIN HUMAN 25% 100 ML IV (09:19)
[2018-06-28] MEDS: SODIUM CHLORIDE 23.4% 154 MEQ in DEXTROSE 10% 1,000 ML IV (10:00)
[2018-06-28] MEDS: FAMOTIDINE 20 MG TAB PO (11:02)
[2018-06-28] MEDS: MEROPENEM 500MG/50 ML (PMX) 50 ML IVPB ×2 (11:02→20:50)
[2018-06-28] MEDS: AMIODARONE 200 MG TAB NGT ×2 (11:03→20:54)
[2018-06-28] MEDS: FOLIC ACID 1 MG TAB PO (11:03)
[2018-06-28] MEDS: PROPOFOL 100 ML IV ×2 (12:00)
[2018-06-28] MEDS: ONDANSETRON 4 MG INJ IV (12:02)
[2018-06-28] MEDS: CASPOFUNGIN 50 MG in SOD CHLORIDE 0.9% 250 ML IVPB (13:31)
[2018-06-29] MEDS: ACCU-CHEK XX ×6 (01:00→21:07)
[2018-06-29 05:44] LABS: ADD MAN DIFF? NO
[2018-06-29] MEDS: DEXTROSE 50% 50 ML SYRINGE IV (05:49)
[2018-06-29 05:54] LABS: ABNORMAL IP MESSAGE 1; BASOPHILS % 0.7 % (0.0-2.0); EOSINOPHILS % 0.4 % (0.0-7.0); HEMATOCRIT 31.2 % (37.0-47.0); HEMOGLOBIN 10.8 g/dl (12.0-16.0); LYMPHOCYTES # 1.4 10^3/ul (0.8-2.9); LYMPHOCYTES % 23.6 % (15.0-51.0); MEAN CORPUSCULAR HEMOGLOBIN 29.9 pg (29.0-33.0); MEAN CORPUSCULAR HGB CONC 34.6 g/dl (32.0-37.0); MEAN CORPUSCULAR VOLUME 86.4 fl (82.0-101.0); MONOCYTE # 0.4 10^3/ul (0.3-0.9); MONOCYTES % 6.8 % (0.0-11.0); NEUTROPHIL # 3.9 10^3/ul (1.6-7.5); NEUTROPHILS % 67.6 % (39.0-77.0); PLATELET COUNT 46 10^3/UL (140-415); RED BLOOD COUNT 3.61 10^6/ul (4.20-5.40); RED CELL DISTRIBUTION WIDTH 18.7 % (11.5-14.5)
[2018-06-29 05:54] LABS: WHITE BLOOD COUNT 5.7 10^3/ul (4.8-10.8)
[2018-06-29 06:44] LABS: ANION GAP 13 (5-13); BLOOD UREA NITROGEN 42 mg/dl (7-20); CARBON DIOXIDE 22 mmol/L (21-31); CHLORIDE 104 mmol/L (97-110); CREATININE 1.25 mg/dl (0.44-1.00); Estimated GFR 44 mL/min (>60); GLUCOSE 78 mg/dl (70-220); MAGNESIUM 1.8 mg/dl (1.7-2.5); PHOSPHORUS 4.3 mg/dl (2.5-4.9); POTASSIUM 3.5 mmol/L (3.5-5.1); SODIUM 139 mmol/L (135-144)
[2018-06-29] MEDS: LEVOTHYROXINE 75 MCG TAB NGT (07:00)
[2018-06-29 07:06] LABS: POSITIVE DIFF @See below
[2018-06-29] MEDS: BALSAM PERU/CASTOR OIL 60 GM TUBE TOP ×2 (09:00→21:09)
[2018-06-29] MEDS: MEROPENEM 500MG/50 ML (PMX) 50 ML IVPB ×2 (10:06→21:06)
[2018-06-29] MEDS: AMIODARONE 200 MG TAB NGT ×2 (10:07→21:07)
[2018-06-29] MEDS: FOLIC ACID 1 MG TAB PO (10:07)
[2018-06-29] MEDS: FAMOTIDINE 20 MG TAB PO (10:07)
[2018-06-29] MEDS: COLLAGENASE 5 GM (UD JAR) TOP (10:08)
[2018-06-29] MEDS: SODIUM CHLORIDE 23.4% 154 MEQ in DEXTROSE 10% 1,000 ML IV ×2 (10:09→21:07)
[2018-06-29] MEDS: PROPOFOL 100 ML IV ×3 (12:00→21:07)
[2018-06-29] MEDS: CASPOFUNGIN 50 MG in SOD CHLORIDE 0.9% 250 ML IVPB (13:12)
[2018-06-30] MEDS: ACCU-CHEK XX ×6 (00:45→20:56)
[2018-06-30] MEDS: NORepinephrine 8MG/250 ML (PMX 250 ML IV (00:52)
[2018-06-30 04:41] LABS: AADO2 Arterial 98.1 mmHg (7.0-24.0); Arterial Base Excess -3.2 mmol/L (-3.0-3); Arterial Blood Gas Oxygen Sat 96.6 mmHG (95.0-98.0); Arterial COHb 0.3 % (0.0-3.0); Arterial Fraction of Oxyhgb 96.1 % (93.0-99.0); Arterial HCO3 18.3 mmol/L (22.0-26.0); Arterial MetHb 0.2 % (0.0-1.5); Arterial pCO2 22.4 mmhg (35-45); MODE VENT - AC; Site Right Brachial
[2018-06-30 05:33] LABS: ABNORMAL IP MESSAGE 1; HEMATOCRIT 25.1 % (37.0-47.0); HEMOGLOBIN 8.7 g/dl (12.0-16.0); MEAN CORPUSCULAR HEMOGLOBIN 29.9 pg (29.0-33.0); MEAN CORPUSCULAR HGB CONC 34.7 g/dl (32.0-37.0); MEAN CORPUSCULAR VOLUME 86.3 fl (82.0-101.0); RED BLOOD COUNT 2.91 10^6/ul (4.20-5.40)
[2018-06-30] MEDS: LEVOTHYROXINE 75 MCG TAB NGT (05:42)
[2018-06-30] MEDS: DEXTROSE 50% 50 ML SYRINGE IV ×3 (05:44→20:57)
[2018-06-30 05:56] LABS: LACTIC ACID 2.4 mmol/L (0.5-2.0)
[2018-06-30 06:01] LABS: PLATELET COUNT 40 10^3/UL (140-415); POSITIVE DIFF @See below
[2018-06-30 06:02] LABS: ADD MAN DIFF? YES
[2018-06-30 07:59] LABS: ANION GAP 12 (5-13); BLOOD UREA NITROGEN 48 mg/dl (7-20); CALCIUM 7.8 mg/dl (8.4-10.2); CARBON DIOXIDE 20 mmol/L (21-31); CHLORIDE 107 mmol/L (97-110); CREATININE 1.39 mg/dl (0.44-1.00); Estimated GFR 39 mL/min (>60); GLUCOSE 122 mg/dl (70-220); POTASSIUM 3.5 mmol/L (3.5-5.1); SODIUM 139 mmol/L (135-144)
[2018-06-30 08:58] LABS: ANISOCYTOSIS 2+ (0-0); BAND NEUTROPHILS #M 0.6 10^3/ul (0.0-0.6); BAND NEUTROPHILS % (M) 15 % (0-4); BASOPHILS % (M) 1 % (0-2); BURR CELLS 2+ (0-0); EOSINOPHILS % (M) 3 % (0-7); ERYTHROBLAST% (NRBC) (M) 1 % (0-0); GIANT THROMBO% (M) 2 % (0-0); LYMPHOCYTES % (M) 25 % (15-51); MONOCYTE #M 0.2 10^3/ul (0.3-0.9); MONOCYTES % (M) 7 % (0-11); MYELOCYTES % (M) 1 % (0-0); PLATELET ESTIMATE SIG DECREASED; POIKILOCYTOSIS 3+ (0-0); POLYCHROMASIA 2+ (0-0); SEG NEUT #M 1.9 10^3/ul (1.6-7.5); SEGMENTED NEUTROPHILS (M) % 48 % (39-77); SMUDGE%M 9 % (0-0)
[2018-06-30] MEDS: BALSAM PERU/CASTOR OIL 60 GM TUBE TOP ×2 (09:27→20:56)
[2018-06-30] MEDS: EPOETIN ALFA-EPBX (ESRD) 10,000 UNIT/ML VIAL SC (09:29)
[2018-06-30] MEDS: COLLAGENASE 5 GM (UD JAR) TOP (09:30)
[2018-06-30] MEDS: AMIODARONE 200 MG TAB NGT ×2 (09:30→20:56)
[2018-06-30] MEDS: FOLIC ACID 1 MG TAB NGT (09:30)
[2018-06-30] MEDS: MEROPENEM 500MG/50 ML (PMX) 50 ML IVPB ×2 (09:31→20:56)
[2018-06-30] MEDS: FAMOTIDINE 20 MG TAB NGT (09:32)
[2018-06-30] MEDS: PROPOFOL 100 ML IV (11:49)
[2018-06-30] MEDS: ALBUMIN HUMAN 25% 100 ML IV (14:10)
[2018-06-30] MEDS: CASPOFUNGIN 50 MG in SOD CHLORIDE 0.9% 250 ML IVPB (17:10)
[2018-07-01] MEDS: ACCU-CHEK XX ×6 (01:05→21:00)
[2018-07-01] MEDS: DEXTROSE 50% 50 ML SYRINGE IV ×4 (01:06→23:58)
[2018-07-01] MEDS: SODIUM CHLORIDE 23.4% 154 MEQ in DEXTROSE 10% 1,000 ML IV ×2 (03:50→23:22)
[2018-07-01] MEDS: NORepinephrine 8MG/250 ML (PMX 250 ML IV ×3 (03:55→22:39)
[2018-07-01 04:55] LABS: WHITE BLOOD COUNT 4.9 10^3/ul (4.8-10.8)
[2018-07-01 04:55] LABS: ABNORMAL IP MESSAGE 1; HEMATOCRIT 25.3 % (37.0-47.0); HEMOGLOBIN 8.7 g/dl (12.0-16.0); MEAN CORPUSCULAR HEMOGLOBIN 30.3 pg (29.0-33.0); MEAN CORPUSCULAR HGB CONC 34.4 g/dl (32.0-37.0); MEAN CORPUSCULAR VOLUME 88.2 fl (82.0-101.0); RED BLOOD COUNT 2.87 10^6/ul (4.20-5.40); RED CELL DISTRIBUTION WIDTH 19.9 % (11.5-14.5)
[2018-07-01 05:05] LABS: PLATELET COUNT 39 10^3/UL (140-415); POSITIVE DIFF @See below
[2018-07-01 05:06] LABS: ADD MAN DIFF? YES
[2018-07-01 05:12] LABS: LACTIC ACID 2.5 mmol/L (0.5-2.0)
[2018-07-01 05:19] LABS: ANION GAP 10 (5-13); BLOOD UREA NITROGEN 30 mg/dl (7-20); CALCIUM 8.2 mg/dl (8.4-10.2); CARBON DIOXIDE 25 mmol/L (21-31); CHLORIDE 105 mmol/L (97-110); Estimated GFR 57 mL/min (>60); GLUCOSE 113 mg/dl (70-220); SODIUM 140 mmol/L (135-144)
[2018-07-01 06:03] LABS: POTASSIUM 3.2 mmol/L (3.5-5.1)
[2018-07-01 07:01] LABS: ANISOCYTOSIS 1+ (0-0); BAND NEUTROPHILS #M 0.4 10^3/ul (0.0-0.6); BAND NEUTROPHILS % (M) 9 % (0-4); BASOPHILS % (M) 1 % (0-2); EOSINOPHILS % (M) 1 % (0-7); GIANT THROMBO% (M) 5 % (0-0); LYMPHOCYTES #M 2.4 10^3/ul (0.8-2.9); LYMPHOCYTES % (M) 50 % (15-51); MONOCYTE #M 0.2 10^3/ul (0.3-0.9); MONOCYTES % (M) 5 % (0-11); OVALOCYTES 1+ (0-0); PLATELET ESTIMATE DECREASED; PROMYELOCYTES % (M) 2 % (0-0); REACTIVE LYMPHOCYTES #M 0.1 10^3/ul (0.0-0.0); REACTIVE LYMPHOCYTES% (M) 3 % (0-0); SEG NEUT #M 1.4 10^3/ul (1.6-7.5); SEGMENTED NEUTROPHILS (M) % 29 % (39-77); SMUDGE%M 11 % (0-0)
[2018-07-01 08:01] LABS: AADO2 Arterial 98.1 mmHg (7.0-24.0); Arterial Base Excess -2.2 mmol/L (-3.0-3); Arterial Blood Gas Oxygen Sat 95.9 mmHG (95.0-98.0); Arterial COHb 0.3 % (0.0-3.0); Arterial Fraction of Oxyhgb 95.2 % (93.0-99.0); Arterial HCO3 20.2 mmol/L (22.0-26.0); Arterial MetHb 0.4 % (0.0-1.5); Arterial pCO2 26.8 mmhg (35-45); MODE VENT - AC; Site Right Brachial
[2018-07-01] MEDS: LEVOTHYROXINE 75 MCG TAB NGT (08:58)
[2018-07-01] MEDS: FAMOTIDINE 20 MG TAB NGT (08:58)
[2018-07-01] MEDS: MIDODRINE 5 MG TAB GTB ×3 (08:58→16:01)
[2018-07-01] MEDS: BALSAM PERU/CASTOR OIL 60 GM TUBE TOP ×2 (08:58→21:00)
[2018-07-01] MEDS: AMIODARONE 200 MG TAB NGT ×2 (08:59→23:56)
[2018-07-01] MEDS: FOLIC ACID 1 MG TAB NGT (08:59)
[2018-07-01] MEDS: POTASSIUM CHLORIDE (SR) 20 MEQ TAB PO (08:59)
[2018-07-01] MEDS: COLLAGENASE 5 GM (UD JAR) TOP (09:00)
[2018-07-01] MEDS: MEROPENEM 500MG/50 ML (PMX) 50 ML IVPB ×2 (09:02→22:33)
[2018-07-01] MEDS: ONDANSETRON 4 MG INJ IV (09:06)
[2018-07-01] MEDS: PROPOFOL 100 ML IV ×2 (10:38)
[2018-07-01 11:16] LABS: AADO2 Arterial 86.6 mmHg (7.0-24.0); Arterial Base Excess -0.6 mmol/L (-3.0-3); Arterial Blood Gas Oxygen Sat 93.9 mmHG (95.0-98.0); Arterial COHb 0.2 % (0.0-3.0); Arterial Fraction of Oxyhgb 93.3 % (93.0-99.0); Arterial HCO3 24.7 mmol/L (22.0-26.0); Arterial MetHb 0.4 % (0.0-1.5); Arterial pCO2 43.4 mmhg (35-45); Blood Gas PS 10; MODE VENT - CPAP; Site Right Brachial
[2018-07-01 16:24] LABS: AADO2 Arterial 110.5 mmHg (7.0-24.0); Arterial Base Excess 0.3 mmol/L (-3.0-3); Arterial Blood Gas Oxygen Sat 92.5 mmHG (95.0-98.0); Arterial COHb 0.2 % (0.0-3.0); Arterial Fraction of Oxyhgb 92.1 % (93.0-99.0); Arterial HCO3 23.7 mmol/L (22.0-26.0); Arterial MetHb 0.2 % (0.0-1.5); Arterial pCO2 33.7 mmhg (35-45); MODE VENT - AC; Site Right Brachial
[2018-07-01] MEDS: CASPOFUNGIN 50 MG in SOD CHLORIDE 0.9% 250 ML IVPB (17:01)
[2018-07-01] MEDS: EPOETIN ALFA-EPBX (ESRD) 3,000 UNIT/ML VIAL SC (17:02)
[2018-07-01] MEDS: SUCCINYLCHOLINE CHLORIDE 100 MG/5 ML SYG IV (21:00)
[2018-07-01] MEDS: POTASSIUM CHLORIDE 50 ML IVPB (23:58)
[2018-07-02] MEDS: ALTEPLASE (CATHFLO) 2 MG INJ CATHETER (00:24)
[2018-07-02] MEDS: ACCU-CHEK XX ×23 (00:42→23:11)
[2018-07-02] MEDS: DEXTROSE 50% 50 ML SYRINGE IV ×5 (02:04→23:12)
[2018-07-02] MEDS: POTASSIUM CHLORIDE 50 ML IVPB (03:11)
[2018-07-02] MEDS: NORepinephrine 8MG/250 ML (PMX 250 ML IV (04:49)
[2018-07-02 06:06] LABS: ABNORMAL IP MESSAGE 1; HEMOGLOBIN 8.7 g/dl (12.0-16.0); MEAN CORPUSCULAR HEMOGLOBIN 30.4 pg (29.0-33.0); MEAN CORPUSCULAR HGB CONC 33.5 g/dl (32.0-37.0); MEAN CORPUSCULAR VOLUME 90.9 fl (82.0-101.0); PLATELET COUNT 53 10^3/UL (140-415); RED BLOOD COUNT 2.86 10^6/ul (4.20-5.40); RED CELL DISTRIBUTION WIDTH 20.5 % (11.5-14.5)
[2018-07-02 06:06] LABS: WHITE BLOOD COUNT 6.9 10^3/ul (4.8-10.8)
[2018-07-02 06:15] LABS: POSITIVE DIFF @See below
[2018-07-02 06:16] LABS: ADD MAN DIFF? YES
[2018-07-02 06:49] LABS: ANION GAP 11 (5-13); BLOOD UREA NITROGEN 38 mg/dl (7-20); CALCIUM 8.2 mg/dl (8.4-10.2); CARBON DIOXIDE 21 mmol/L (21-31); CHLORIDE 108 mmol/L (97-110); CREATININE 1.34 mg/dl (0.44-1.00); Estimated GFR 41 mL/min (>60); GLUCOSE 74 mg/dl (70-220); MAGNESIUM 1.7 mg/dl (1.7-2.5); PHOSPHORUS 3.7 mg/dl (2.5-4.9); POTASSIUM 4.5 mmol/L (3.5-5.1); SODIUM 140 mmol/L (135-144)
[2018-07-02] MEDS: LEVOTHYROXINE 75 MCG TAB NGT (06:58)
[2018-07-02] MEDS: FOLIC ACID 1 MG TAB NGT (08:22)
[2018-07-02] MEDS: MIDODRINE 5 MG TAB GTB ×3 (08:22→16:23)
[2018-07-02] MEDS: FAMOTIDINE 20 MG TAB NGT (08:22)
[2018-07-02] MEDS: AMIODARONE 200 MG TAB NGT ×2 (08:22→20:43)
[2018-07-02] MEDS: ALBUMIN HUMAN 25% 100 ML IV (08:52)
[2018-07-02 09:03] LABS: ANISOCYTOSIS 1+ (0-0); BAND NEUTROPHILS #M 2.5 10^3/ul (0.0-0.6); BAND NEUTROPHILS % (M) 37 % (0-4); BASOPHIL #M 0.1 10^3/ul (0.0-0.0); BASOPHILS % (M) 2 % (0-2); BURR CELLS 2+ (0-0); GIANT THROMBO% (M) 24 % (0-0); HYPOCHROMASIA 1+ (0-0); LYMPHOCYTES #M 1.3 10^3/ul (0.8-2.9); LYMPHOCYTES % (M) 19 % (15-51); METAMYELOCYTES #M 0.2 10^3/ul (0.0-0.0); METAMYELOCYTES %M 3 % (0-0); MONOCYTE #M 0.8 10^3/ul (0.3-0.9); MONOCYTES % (M) 12 % (0-11); MYELOCYTES % (M) 1 % (0-0); OVALOCYTES 1+ (0-0); PLATELET ESTIMATE SIG DECREASED; POIKILOCYTOSIS 1+ (0-0); POLYCHROMASIA 1+ (0-0); REACTIVE LYMPHOCYTES #M 0.1 10^3/ul (0.0-0.0); REACTIVE LYMPHOCYTES% (M) 2 % (0-0); SEG NEUT #M 1.8 10^3/ul (1.6-7.5); SEGMENTED NEUTROPHILS (M) % 24 % (39-77); SMUDGE%M 8 % (0-0); TARGET CELLS 2+ (0-0)
[2018-07-02] MEDS: MEROPENEM 500MG/50 ML (PMX) 50 ML IVPB ×2 (09:10→20:41)
[2018-07-02] MEDS: COLLAGENASE 5 GM (UD JAR) TOP (09:10)
[2018-07-02] MEDS: BALSAM PERU/CASTOR OIL 60 GM TUBE TOP ×2 (09:10→20:43)
[2018-07-02] MEDS: PROPOFOL 100 ML IV ×2 (11:05)
[2018-07-02] MEDS: MAGNESIUM SULFATE 2 GM/50 ML 50 ML IVPB (11:05)
[2018-07-02] MEDS: NORepinephrine 32 MG in DEXTROSE 5% 218 ML IV (11:18)
[2018-07-02 12:26] LABS: PLATELET COUNT 42 10^3/UL (140-415)
[2018-07-02 12:45] LABS: INR 1.77; PROTIME 20.7 Sec (11.9-14.9); PT RATIO 1.6
[2018-07-02 12:46] LABS: PARTIAL THROMBOPLASTIN TIME 45.4 Sec (23.0-35.0); THROMBIN TIME 14.4 SEC (13.8-19.1)
[2018-07-02] MEDS: CASPOFUNGIN 50 MG in SOD CHLORIDE 0.9% 250 ML IVPB (13:12)
[2018-07-02] MEDS: SODIUM CHLORIDE 23.4% 154 MEQ in DEXTROSE 10% 1,000 ML IV (13:56)
[2018-07-03] MEDS: ACCU-CHEK XX ×24 (01:00→22:56)
[2018-07-03] MEDS: SODIUM CHLORIDE 23.4% 154 MEQ in DEXTROSE 10% 1,000 ML IV (03:25)
[2018-07-03] MEDS: DEXTROSE 50% 50 ML SYRINGE IV ×4 (03:25→19:44)
[2018-07-03 05:23] LABS: WHITE BLOOD COUNT 9.1 10^3/ul (4.8-10.8)
[2018-07-03 05:23] LABS: ABNORMAL IP MESSAGE 1; HEMATOCRIT 22.9 % (37.0-47.0); HEMOGLOBIN 7.6 g/dl (12.0-16.0); MEAN CORPUSCULAR HEMOGLOBIN 30.6 pg (29.0-33.0); MEAN CORPUSCULAR HGB CONC 33.2 g/dl (32.0-37.0); MEAN CORPUSCULAR VOLUME 92.3 fl (82.0-101.0); PLATELET COUNT 47 10^3/UL (140-415); RED BLOOD COUNT 2.48 10^6/ul (4.20-5.40)
[2018-07-03 05:27] LABS: ADD MAN DIFF? YES; POSITIVE DIFF @See below
[2018-07-03 06:00] LABS: ANION GAP 8 (5-13); BLOOD UREA NITROGEN 26 mg/dl (7-20); CALCIUM 8.6 mg/dl (8.4-10.2); CARBON DIOXIDE 25 mmol/L (21-31); CHLORIDE 108 mmol/L (97-110); CREATININE 1.04 mg/dl (0.44-1.00); Estimated GFR 54 mL/min (>60); GLUCOSE 84 mg/dl (70-220); MAGNESIUM 2.1 mg/dl (1.7-2.5); PHOSPHORUS 3.4 mg/dl (2.5-4.9); POTASSIUM 4.3 mmol/L (3.5-5.1); SODIUM 141 mmol/L (135-144)
[2018-07-03] MEDS: LEVOTHYROXINE 75 MCG TAB NGT (06:13)
[2018-07-03 07:47] LABS: ANISOCYTOSIS 2+ (0-0); BAND NEUTROPHILS #M 3.4 10^3/ul (0.0-0.6); BAND NEUTROPHILS % (M) 38 % (0-4); BURR CELLS 3+ (0-0); GIANT THROMBO% (M) 3 % (0-0); LYMPHOCYTES #M 1.8 10^3/ul (0.8-2.9); LYMPHOCYTES % (M) 20 % (15-51); MONOCYTE #M 0.6 10^3/ul (0.3-0.9); MONOCYTES % (M) 7 % (0-11); MYELOCYTES #M 0.1 10^3/ul (0.0-0.0); MYELOCYTES % (M) 2 % (0-0); PLATELET ESTIMATE SIG DECREASED; POIKILOCYTOSIS 3+ (0-0); POLYCHROMASIA 1+ (0-0); SEG NEUT #M 3.3 10^3/ul (1.6-7.5); SEGMENTED NEUTROPHILS (M) % 33 % (39-77); SMUDGE%M 2 % (0-0); TARGET CELLS 2+ (0-0)
[2018-07-03] MEDS: FOLIC ACID 1 MG TAB NGT (08:53)
[2018-07-03] MEDS: MIDODRINE 5 MG TAB GTB ×3 (08:53→17:00)
[2018-07-03] MEDS: AMIODARONE 200 MG TAB NGT ×2 (08:53→20:46)
[2018-07-03] MEDS: FAMOTIDINE 20 MG TAB NGT (08:53)
[2018-07-03] MEDS: MEROPENEM 500MG/50 ML (PMX) 50 ML IVPB ×2 (08:54→20:46)
[2018-07-03] MEDS: COLLAGENASE 5 GM (UD JAR) TOP (08:54)
[2018-07-03] MEDS: BALSAM PERU/CASTOR OIL 60 GM TUBE TOP ×2 (08:54→20:46)
[2018-07-03] MEDS: PROPOFOL 100 ML IV ×3 (12:00→22:56)
[2018-07-03 12:02] LABS: TYPE AND SCREEN 1
[2018-07-03] MEDS: CASPOFUNGIN 50 MG in SOD CHLORIDE 0.9% 250 ML IVPB (13:34)
[2018-07-03] MEDS: EPOETIN ALFA-EPBX (ESRD) 3,000 UNIT/ML VIAL SC (17:51)
[2018-07-03] MEDS ORDERED: ONDANSETRON 4 MG INJ IV (18:30)
[2018-07-03] MEDS ORDERED: HYDROmorphONE 0.5 MG/0.5 ML SYG IV (18:30)
[2018-07-03] MEDS: ETOMIDATE 20 MG INJ (19:29)
[2018-07-03] MEDS: FENTAnyl 50 MCG/ML VIAL (19:30)
[2018-07-04] MEDS: ACCU-CHEK XX ×25 (00:04→23:35)
[2018-07-04 05:12] LABS: ADD MAN DIFF? NO
[2018-07-04 05:15] LABS: WHITE BLOOD COUNT 8.8 10^3/ul (4.8-10.8)
[2018-07-04 05:15] LABS: ABNORMAL IP MESSAGE 1; BASOPHILS % 0.3 % (0.0-2.0); EOSINOPHILS # 0.1 10^3/ul (0.0-0.5); EOSINOPHILS % 1.5 % (0.0-7.0); HEMATOCRIT 18.1 % (37.0-47.0); LYMPHOCYTES # 1.2 10^3/ul (0.8-2.9); LYMPHOCYTES % 13.5 % (15.0-51.0); MEAN CORPUSCULAR HEMOGLOBIN 30.3 pg (29.0-33.0); MEAN CORPUSCULAR HGB CONC 33.1 g/dl (32.0-37.0); MEAN CORPUSCULAR VOLUME 91.4 fl (82.0-101.0); MONOCYTE # 0.4 10^3/ul (0.3-0.9); MONOCYTES % 4.4 % (0.0-11.0); NEUTROPHILS % 79.8 % (39.0-77.0); RED BLOOD COUNT 1.98 10^6/ul (4.20-5.40); RED CELL DISTRIBUTION WIDTH 20.8 % (11.5-14.5)
[2018-07-04 05:46] LABS: PLATELET COUNT 29 10^3/UL (140-415); POSITIVE DIFF @See below
[2018-07-04 05:56] LABS: ANION GAP 7 (5-13); BLOOD UREA NITROGEN 34 mg/dl (7-20); CALCIUM 8.6 mg/dl (8.4-10.2); CARBON DIOXIDE 25 mmol/L (21-31); CHLORIDE 110 mmol/L (97-110); Estimated GFR 46 mL/min (>60); GLUCOSE 97 mg/dl (70-220); POTASSIUM 3.8 mmol/L (3.5-5.1); SODIUM 142 mmol/L (135-144)
[2018-07-04] MEDS: LEVOTHYROXINE 75 MCG TAB NGT (06:14)
[2018-07-04 06:41] LABS: IMMEDIATE SPIN CROSSMATCH 1 3
[2018-07-04 08:33] LABS: ANISOCYTOSIS 2+ (0-0); BAND NEUTROPHILS #M 1.6 10^3/ul (0.0-0.6); BAND NEUTROPHILS % (M) 19 % (0-4); BASOPHILS % (M) 1 % (0-2); BURR CELLS 1+ (0-0); LYMPHOCYTES #M 2.2 10^3/ul (0.8-2.9); LYMPHOCYTES % (M) 26 % (15-51); PLATELET ESTIMATE SIG DECREASED; POIKILOCYTOSIS 2+ (0-0); SEG NEUT #M 4.9 10^3/ul (1.6-7.5); SEGMENTED NEUTROPHILS (M) % 54 % (39-77); SMUDGE%M 1 % (0-0); SPHEROCYTES 1+ (0-0)
[2018-07-04] MEDS: ALBUMIN HUMAN 25% 100 ML IV (08:53)
[2018-07-04] MEDS: MIDODRINE 5 MG TAB GTB ×3 (09:00→18:37)
[2018-07-04] MEDS: ARTIFICIAL TEARS 15 ML OPH BOTH EYES ×4 (09:00→20:25)
[2018-07-04 09:06] LABS: IRON 44 ug/dl (35-150)
[2018-07-04 09:16] LABS: % IRON SATURATION 48 % SAT (22-52); TOTAL IRON BINDING CAPACITY 92 ug/dl (241-421)
[2018-07-04] MEDS: PROPOFOL 100 ML IV ×2 (12:00→23:35)
[2018-07-04] MEDS: SODIUM CHLORIDE 23.4% 154 MEQ in DEXTROSE 10% 1,000 ML IV (13:14)
[2018-07-04] MEDS: DEXTROSE 50% 50 ML SYRINGE IV (13:14)
[2018-07-04] MEDS: MEROPENEM 500MG/50 ML (PMX) 50 ML IVPB ×2 (13:48→20:26)
[2018-07-04] MEDS: AMIODARONE 200 MG TAB NGT ×2 (13:49→20:26)
[2018-07-04] MEDS: FOLIC ACID 1 MG TAB NGT (13:49)
[2018-07-04] MEDS: FAMOTIDINE 20 MG TAB NGT (13:49)
[2018-07-04] MEDS: COLLAGENASE 5 GM (UD JAR) TOP (13:51)
[2018-07-04] MEDS: BALSAM PERU/CASTOR OIL 60 GM TUBE TOP ×2 (13:51→20:27)
[2018-07-04] MEDS: CASPOFUNGIN 50 MG in SOD CHLORIDE 0.9% 250 ML IVPB (13:54)
[2018-07-04 14:07] LABS: ADD MAN DIFF? NO
[2018-07-04 14:12] LABS: ABNORMAL IP MESSAGE 1; BASOPHILS % 0.4 % (0.0-2.0); EOSINOPHILS # 0.2 10^3/ul (0.0-0.5); EOSINOPHILS % 2.2 % (0.0-7.0); HEMATOCRIT 21.1 % (37.0-47.0); LYMPHOCYTES % 13.8 % (15.0-51.0); MEAN CORPUSCULAR HGB CONC 30.8 g/dl (32.0-37.0); MEAN CORPUSCULAR VOLUME 100.5 fl (82.0-101.0); MONOCYTE # 0.3 10^3/ul (0.3-0.9); MONOCYTES % 3.9 % (0.0-11.0); NEUTROPHIL # 5.4 10^3/ul (1.6-7.5); NEUTROPHILS % 78.7 % (39.0-77.0); RED CELL DISTRIBUTION WIDTH 18.6 % (11.5-14.5)
[2018-07-04 14:12] LABS: WHITE BLOOD COUNT 6.9 10^3/ul (4.8-10.8)
[2018-07-04 14:18] LABS: HEMOGLOBIN 6.5 g/dl (12.0-16.0); PLATELET COUNT 24 10^3/UL (140-415)
[2018-07-04 14:19] LABS: POSITIVE DIFF @See below
[2018-07-04] MEDS: NORepinephrine 32 MG in DEXTROSE 5% 218 ML IV (14:54)
[2018-07-04] MEDS: METHYLPREDNISOLONE 40 MG INJ IV ×2 (18:37→23:35)
[2018-07-04] MEDS ORDERED: PHYTONADIONE 10 MG/ML INJ SC (19:30)
[2018-07-05] MEDS: ACCU-CHEK XX ×9 (01:00→21:15)
[2018-07-05] MEDS: SODIUM CHLORIDE 23.4% 154 MEQ in DEXTROSE 10% 1,000 ML IV ×2 (03:30→16:17)
[2018-07-05 05:12] LABS: ABNORMAL IP MESSAGE 1; HEMOGLOBIN 7.8 g/dl (12.0-16.0); MEAN CORPUSCULAR HEMOGLOBIN 30.6 pg (29.0-33.0); MEAN CORPUSCULAR HGB CONC 33.9 g/dl (32.0-37.0); MEAN CORPUSCULAR VOLUME 90.2 fl (82.0-101.0); RED BLOOD COUNT 2.55 10^6/ul (4.20-5.40); RED CELL DISTRIBUTION WIDTH 17.9 % (11.5-14.5)
[2018-07-05 05:32] LABS: ANION GAP 9 (5-13); BLOOD UREA NITROGEN 29 mg/dl (7-20); CALCIUM 8.8 mg/dl (8.4-10.2); CARBON DIOXIDE 24 mmol/L (21-31); CHLORIDE 110 mmol/L (97-110); CREATININE 0.92 mg/dl (0.44-1.00); Estimated GFR > 60 mL/min (>60); GLUCOSE 125 mg/dl (70-220); MAGNESIUM 1.9 mg/dl (1.7-2.5); PHOSPHORUS 3.4 mg/dl (2.5-4.9); POTASSIUM 3.9 mmol/L (3.5-5.1); SODIUM 143 mmol/L (135-144)
[2018-07-05 05:45] LABS: POSITIVE DIFF @See below
[2018-07-05 05:49] LABS: ADD MAN DIFF? YES; PLATELET COUNT 26 10^3/UL (140-415)
[2018-07-05] MEDS: METHYLPREDNISOLONE 40 MG INJ IV ×3 (05:53→18:36)
[2018-07-05] MEDS: LEVOTHYROXINE 75 MCG TAB NGT (06:47)
[2018-07-05] MEDS: ONDANSETRON 4 MG INJ IV (06:53)
[2018-07-05 07:18] LABS: ANISOCYTOSIS 2+ (0-0); BAND NEUTROPHILS #M 0.2 10^3/ul (0.0-0.6); BAND NEUTROPHILS % (M) 5 % (0-4); BURR CELLS 2+ (0-0); GIANT THROMBO% (M) 45 % (0-0); LYMPHOCYTES #M 0.9 10^3/ul (0.8-2.9); LYMPHOCYTES % (M) 18 % (15-51); PLATELET ESTIMATE SIG DECREASED; POIKILOCYTOSIS 3+ (0-0); SEG NEUT #M 3.9 10^3/ul (1.6-7.5); SEGMENTED NEUTROPHILS (M) % 77 % (39-77); SMUDGE%M 16 % (0-0); TARGET CELLS 1+ (0-0)
[2018-07-05] MEDS ORDERED: PHYTONADIONE 10 MG/ML INJ SC (09:00)
[2018-07-05] MEDS: FAMOTIDINE 20 MG TAB NGT (10:51)
[2018-07-05] MEDS: MIDODRINE 5 MG TAB GTB ×3 (10:51→18:39)
[2018-07-05] MEDS: AMIODARONE 200 MG TAB NGT ×2 (10:51→21:15)
[2018-07-05] MEDS: FOLIC ACID 1 MG TAB NGT (10:51)
[2018-07-05] MEDS: MEROPENEM 500MG/50 ML (PMX) 50 ML IVPB (10:51)
[2018-07-05] MEDS: COLLAGENASE 5 GM (UD JAR) TOP (10:52)
[2018-07-05] MEDS: BALSAM PERU/CASTOR OIL 60 GM TUBE TOP ×2 (10:52→21:16)
[2018-07-05] MEDS: ARTIFICIAL TEARS 15 ML OPH BOTH EYES ×4 (10:53→21:15)
[2018-07-05] MEDS: PROPOFOL 100 ML IV ×2 (12:00→23:16)
[2018-07-05] MEDS: CASPOFUNGIN 50 MG in SOD CHLORIDE 0.9% 250 ML IVPB (14:42)
[2018-07-05] MEDS: ERTAPENEM SODIUM 1 GM in SOD CHLORIDE 0.9% 100 ML IVPB (16:18)
[2018-07-05] MEDS: EPOETIN ALFA-EPBX (ESRD) 10,000 UNIT/ML VIAL SC (18:42)
[2018-07-06] MEDS: METHYLPREDNISOLONE 40 MG INJ IV ×4 (00:35→18:36)
[2018-07-06] MEDS: ACCU-CHEK XX ×6 (01:51→21:18)
[2018-07-06] MEDS: LEVOTHYROXINE 75 MCG TAB NGT (06:07)
[2018-07-06] MEDS: ARTIFICIAL TEARS 15 ML OPH BOTH EYES ×4 (09:45→21:18)
[2018-07-06] MEDS: MIDODRINE 5 MG TAB GTB ×3 (09:45→18:36)
[2018-07-06] MEDS: COLLAGENASE 5 GM (UD JAR) TOP (09:46)
[2018-07-06] MEDS: FOLIC ACID 1 MG TAB NGT (09:46)
[2018-07-06] MEDS: AMIODARONE 200 MG TAB NGT ×2 (09:46→21:18)
[2018-07-06] MEDS: BALSAM PERU/CASTOR OIL 60 GM TUBE TOP ×2 (09:46→21:18)
[2018-07-06] MEDS: FAMOTIDINE 20 MG TAB NGT (09:46)
[2018-07-06] MEDS: NORepinephrine 32 MG in DEXTROSE 5% 218 ML IV (09:48)
[2018-07-06] MEDS: PROPOFOL 100 ML IV (12:00)
[2018-07-06] MEDS: CASPOFUNGIN 50 MG in SOD CHLORIDE 0.9% 250 ML IVPB (13:47)
[2018-07-06] MEDS: ALBUMIN HUMAN 25% 100 ML IV (16:40)
[2018-07-06] MEDS: ERTAPENEM SODIUM 1 GM in SOD CHLORIDE 0.9% 100 ML IVPB (18:35)
[2018-07-07] MEDS: PROPOFOL 100 ML IV
[2018-07-07] MEDS: METHYLPREDNISOLONE 40 MG INJ IV ×4 (00:29→17:53)
[2018-07-07] MEDS: ACCU-CHEK XX ×6 (00:31→21:00)
[2018-07-07] MEDS: LEVOTHYROXINE 75 MCG TAB NGT (06:10)
[2018-07-07] MEDS: AMIODARONE 200 MG TAB NGT ×2 (09:00→20:56)
[2018-07-07] MEDS: ARTIFICIAL TEARS 15 ML OPH BOTH EYES ×4 (09:01→20:51)
[2018-07-07] MEDS: COLLAGENASE 5 GM (UD JAR) TOP (09:01)
[2018-07-07] MEDS: FAMOTIDINE 20 MG TAB NGT (09:02)
[2018-07-07] MEDS: BALSAM PERU/CASTOR OIL 60 GM TUBE TOP ×2 (09:02→20:51)
[2018-07-07] MEDS: FOLIC ACID 1 MG TAB NGT (09:02)
[2018-07-07] MEDS: MIDODRINE 5 MG TAB GTB ×3 (09:02→17:53)
[2018-07-07] MEDS: CASPOFUNGIN 50 MG in SOD CHLORIDE 0.9% 250 ML IVPB (12:45)
[2018-07-07] MEDS: ERTAPENEM SODIUM 1 GM in SOD CHLORIDE 0.9% 100 ML IVPB (15:18)
[2018-07-08] MEDS: DEXTROSE 10%-0.2% NACL 1,000 ML IV (00:58)
[2018-07-08] MEDS: METHYLPREDNISOLONE 40 MG INJ IV ×4 (00:58→18:34)
[2018-07-08] MEDS: ACCU-CHEK XX ×6 (01:00→21:07)
[2018-07-08 05:57] LABS: WHITE BLOOD COUNT 4.5 10^3/ul (4.8-10.8)
[2018-07-08 05:57] LABS: ABNORMAL IP MESSAGE 1; HEMATOCRIT 20.5 % (37.0-47.0); MEAN CORPUSCULAR HEMOGLOBIN 30.4 pg (29.0-33.0); MEAN CORPUSCULAR HGB CONC 32.2 g/dl (32.0-37.0); MEAN CORPUSCULAR VOLUME 94.5 fl (82.0-101.0); RED BLOOD COUNT 2.17 10^6/ul (4.20-5.40); RED CELL DISTRIBUTION WIDTH 18.6 % (11.5-14.5)
[2018-07-08] MEDS: LEVOTHYROXINE 75 MCG TAB NGT (06:00)
[2018-07-08 06:12] LABS: INR 1.33; PROTIME 16.6 Sec (11.9-14.9); PT RATIO 1.3
[2018-07-08 06:57] LABS: LACTIC ACID 3.3 mmol/L (0.5-2.0)
[2018-07-08 07:07] LABS: POSITIVE DIFF @See below
[2018-07-08 07:10] LABS: ADD MAN DIFF? YES; HEMOGLOBIN 6.6 g/dl (12.0-16.0); PLATELET COUNT 21 10^3/UL (140-415)
[2018-07-08 07:30] LABS: ANION GAP 13 (5-13); BLOOD UREA NITROGEN 53 mg/dl (7-20); CARBON DIOXIDE 21 mmol/L (21-31); CHLORIDE 107 mmol/L (97-110); CREATININE 1.08 mg/dl (0.44-1.00); Estimated GFR 52 mL/min (>60); GLUCOSE 99 mg/dl (70-220); POTASSIUM 3.3 mmol/L (3.5-5.1); SODIUM 141 mmol/L (135-144)
[2018-07-08] MEDS: AMIODARONE 200 MG TAB NGT ×2 (09:00→21:00)
[2018-07-08] MEDS: COLLAGENASE 5 GM (UD JAR) TOP (09:01)
[2018-07-08] MEDS: FAMOTIDINE 20 MG TAB NGT (09:01)
[2018-07-08] MEDS: FOLIC ACID 1 MG TAB NGT (09:01)
[2018-07-08] MEDS: ARTIFICIAL TEARS 15 ML OPH BOTH EYES ×4 (09:02→21:07)
[2018-07-08] MEDS: BALSAM PERU/CASTOR OIL 60 GM TUBE TOP ×2 (09:02→21:07)
[2018-07-08] MEDS: POTASSIUM CHLORIDE 20 MEQ POWDER FOR ORAL SOLN GTB (09:02)
[2018-07-08] MEDS: MIDODRINE 5 MG TAB GTB ×3 (09:03→18:35)
[2018-07-08 09:14] LABS: ANISOCYTOSIS 2+ (0-0); BAND NEUTROPHILS #M 0.3 10^3/ul (0.0-0.6); BAND NEUTROPHILS % (M) 8 % (0-4); BURR CELLS 1+ (0-0); GIANT THROMBO% (M) 15 % (0-0); LYMPHOCYTES #M 0.4 10^3/ul (0.8-2.9); LYMPHOCYTES % (M) 11 % (15-51); MONOCYTES % (M) 2 % (0-11); PLATELET ESTIMATE DECREASED; SEG NEUT #M 3.6 10^3/ul (1.6-7.5); SEGMENTED NEUTROPHILS (M) % 79 % (39-77); SMUDGE%M 10 % (0-0)
[2018-07-08 11:10] LABS: IMMEDIATE SPIN CROSSMATCH 1 2
[2018-07-08 14:34] LABS: TYPE AND SCREEN 1
[2018-07-08] MEDS: SODIUM CHLORIDE 23.4% 154 MEQ in DEXTROSE 10% 1,000 ML IV (15:00)
[2018-07-08] MEDS: CASPOFUNGIN 50 MG in SOD CHLORIDE 0.9% 250 ML IVPB (15:00)
[2018-07-08] MEDS: ERTAPENEM SODIUM 1 GM in SOD CHLORIDE 0.9% 100 ML IVPB (15:03)
[2018-07-08] MEDS ORDERED: EPOETIN ALFA-EPBX (ESRD) 10,000 UNIT/ML VIAL SC (17:00)
[2018-07-08] MEDS ORDERED: LIDOCAINE 2% (SDV) 5 ML INJ (17:08)
[2018-07-08] MEDS ORDERED: ETOMIDATE 20 MG INJ (17:08)
[2018-07-08] MEDS ORDERED: FENTAnyl 50 MCG/ML VIAL (17:08)
[2018-07-08] MEDS ORDERED: LIDOCAINE 1% (MDV) 20 ML INJ (17:14)
[2018-07-08] MEDS: EPOETIN ALFA-EPBX (ESRD) 10,000 UNIT/ML VIAL SC (19:07)
[2018-07-09] MEDS: METHYLPREDNISOLONE 40 MG INJ IV ×4 (00:53→18:34)
[2018-07-09] MEDS: ACCU-CHEK XX ×6 (00:54→20:56)
[2018-07-09] MEDS: DEXTROSE 10%-0.2% NACL 1,000 ML IV (00:54)
[2018-07-09] MEDS: LORAZEPAM 2 MG INJ IV ×2 (01:40→15:20)
[2018-07-09 06:09] LABS: ANION GAP 10 (5-13); BLOOD UREA NITROGEN 41 mg/dl (7-20); CALCIUM 8.8 mg/dl (8.4-10.2); CARBON DIOXIDE 23 mmol/L (21-31); CHLORIDE 107 mmol/L (97-110); Estimated GFR > 60 mL/min (>60); GLUCOSE 108 mg/dl (70-220); SODIUM 140 mmol/L (135-144)
[2018-07-09 06:12] LABS: POTASSIUM 4.3 mmol/L (3.5-5.1)
[2018-07-09 06:41] LABS: ABNORMAL IP MESSAGE 1; HEMATOCRIT 36.1 % (37.0-47.0); MEAN CORPUSCULAR HEMOGLOBIN 30.7 pg (29.0-33.0); MEAN CORPUSCULAR HGB CONC 33.2 g/dl (32.0-37.0); MEAN CORPUSCULAR VOLUME 92.3 fl (82.0-101.0); RED BLOOD COUNT 3.91 10^6/ul (4.20-5.40); RED CELL DISTRIBUTION WIDTH 16.3 % (11.5-14.5)
[2018-07-09 06:41] LABS: WHITE BLOOD COUNT 6.7 10^3/ul (4.8-10.8)
[2018-07-09 06:46] LABS: POSITIVE DIFF @See below
[2018-07-09 06:47] LABS: ADD MAN DIFF? YES; PLATELET COUNT 18 10^3/UL (140-415)
[2018-07-09 08:33] LABS: ANISOCYTOSIS 1+ (0-0); BAND NEUTROPHILS #M 0.7 10^3/ul (0.0-0.6); BAND NEUTROPHILS % (M) 11 % (0-4); BURR CELLS 2+ (0-0); ERYTHROBLAST% (NRBC) (M) 1 % (0-0); HYPOCHROMASIA 1+ (0-0); LYMPHOCYTES #M 0.1 10^3/ul (0.8-2.9); LYMPHOCYTES % (M) 2 % (15-51); MONOCYTE #M 0.1 10^3/ul (0.3-0.9); MONOCYTES % (M) 2 % (0-11); PLATELET ESTIMATE SIG DECREASED; POIKILOCYTOSIS 2+ (0-0); POLYCHROMASIA 1+ (0-0); SEG NEUT #M 5.7 10^3/ul (1.6-7.5); SEGMENTED NEUTROPHILS (M) % 85 % (39-77); SMUDGE%M 3 % (0-0)
[2018-07-09] MEDS: MIDODRINE 5 MG TAB GTB ×3 (08:55→18:33)
[2018-07-09] MEDS: LEVOTHYROXINE 75 MCG TAB NGT (08:55)
[2018-07-09] MEDS: FAMOTIDINE 20 MG TAB NGT (08:55)
[2018-07-09] MEDS: FOLIC ACID 1 MG TAB NGT (08:55)
[2018-07-09] MEDS: BALSAM PERU/CASTOR OIL 60 GM TUBE TOP ×2 (08:56→20:56)
[2018-07-09] MEDS: ARTIFICIAL TEARS 15 ML OPH BOTH EYES ×4 (08:56→20:55)
[2018-07-09] MEDS: COLLAGENASE 5 GM (UD JAR) TOP (08:56)
[2018-07-09] MEDS: AMIODARONE 200 MG TAB NGT ×2 (09:00→20:56)
[2018-07-09] MEDS: CASPOFUNGIN 50 MG in SOD CHLORIDE 0.9% 250 ML IVPB (12:35)
[2018-07-09] MEDS: SODIUM CHLORIDE 23.4% 154 MEQ in DEXTROSE 10% 1,000 ML IV (18:33)
[2018-07-09] MEDS: ERTAPENEM SODIUM 0.5 GM in SOD CHLORIDE 0.9% 100 ML IVPB (18:34)
[2018-07-10] MEDS: morphine 2 MG INJ IV (00:11)
[2018-07-10] MEDS: ACCU-CHEK XX ×6 (00:39→20:27)
[2018-07-10] MEDS: DEXTROSE 10%-0.2% NACL 1,000 ML IV (00:39)
[2018-07-10] MEDS: METHYLPREDNISOLONE 40 MG INJ IV ×4 (00:39→18:10)
[2018-07-10] MEDS: LORAZEPAM 2 MG INJ IV (04:21)
[2018-07-10 05:18] LABS: ABNORMAL IP MESSAGE 1; HEMATOCRIT 37.7 % (37.0-47.0); HEMOGLOBIN 12.7 g/dl (12.0-16.0); MEAN CORPUSCULAR HEMOGLOBIN 30.5 pg (29.0-33.0); MEAN CORPUSCULAR HGB CONC 33.7 g/dl (32.0-37.0); MEAN CORPUSCULAR VOLUME 90.6 fl (82.0-101.0); PLATELET COUNT 34 10^3/UL (140-415); RED BLOOD COUNT 4.16 10^6/ul (4.20-5.40); RED CELL DISTRIBUTION WIDTH 16.7 % (11.5-14.5)
[2018-07-10 05:18] LABS: WHITE BLOOD COUNT 11.9 10^3/ul (4.8-10.8)
[2018-07-10 05:28] LABS: ADD MAN DIFF? YES; POSITIVE DIFF @See below
[2018-07-10 05:43] LABS: ANION GAP 10 (5-13); BLOOD UREA NITROGEN 55 mg/dl (7-20); CALCIUM 8.7 mg/dl (8.4-10.2); CARBON DIOXIDE 23 mmol/L (21-31); CHLORIDE 106 mmol/L (97-110); CREATININE 1.15 mg/dl (0.44-1.00); Estimated GFR 48 mL/min (>60); GLUCOSE 111 mg/dl (70-220); MAGNESIUM 1.9 mg/dl (1.7-2.5); PHOSPHORUS 5.3 mg/dl (2.5-4.9); POTASSIUM 4.6 mmol/L (3.5-5.1); SODIUM 139 mmol/L (135-144)
[2018-07-10 07:56] LABS: ANISOCYTOSIS 1+ (0-0); BAND NEUTROPHILS #M 0.7 10^3/ul (0.0-0.6); BAND NEUTROPHILS % (M) 6 % (0-4); BURR CELLS 1+ (0-0); GIANT THROMBO% (M) 2 % (0-0); LYMPHOCYTES #M 0.4 10^3/ul (0.8-2.9); LYMPHOCYTES % (M) 4 % (15-51); MONOCYTE #M 0.3 10^3/ul (0.3-0.9); MONOCYTES % (M) 3 % (0-11); PLATELET ESTIMATE DECREASED; POIKILOCYTOSIS 1+ (0-0); POLYCHROMASIA 1+ (0-0); SEG NEUT #M 10.4 10^3/ul (1.6-7.5); SEGMENTED NEUTROPHILS (M) % 87 % (39-77); SMUDGE%M 4 % (0-0)
[2018-07-10] MEDS: ALBUMIN HUMAN 25% 100 ML IV ×2 (08:08→08:52)
[2018-07-10] MEDS: AMIODARONE 200 MG TAB NGT ×2 (09:00→20:27)
[2018-07-10] MEDS: COLLAGENASE 5 GM (UD JAR) TOP (09:03)
[2018-07-10] MEDS: ARTIFICIAL TEARS 15 ML OPH BOTH EYES ×4 (09:03→20:27)
[2018-07-10] MEDS: MIDODRINE 5 MG TAB GTB ×3 (09:04→18:19)
[2018-07-10] MEDS: LEVOTHYROXINE 75 MCG TAB NGT (09:04)
[2018-07-10] MEDS: FAMOTIDINE 20 MG TAB NGT (09:05)
[2018-07-10] MEDS: FOLIC ACID 1 MG TAB NGT (09:05)
[2018-07-10] MEDS: BALSAM PERU/CASTOR OIL 60 GM TUBE TOP ×2 (09:06→20:28)
[2018-07-10] MEDS: CASPOFUNGIN 50 MG in SOD CHLORIDE 0.9% 250 ML IVPB (13:12)
[2018-07-10] MEDS: SODIUM CHLORIDE 23.4% 154 MEQ in DEXTROSE 10% 1,000 ML IV (18:09)
[2018-07-10] MEDS: ERTAPENEM SODIUM 0.5 GM in SOD CHLORIDE 0.9% 100 ML IVPB (18:30)
[2018-07-11] MEDS: METHYLPREDNISOLONE 40 MG INJ IV ×4 (00:33→18:51)
[2018-07-11] MEDS: ACCU-CHEK XX ×6 (00:34→21:00)
[2018-07-11 05:28] LABS: WHITE BLOOD COUNT 18.4 10^3/ul (4.8-10.8)
[2018-07-11 05:28] LABS: HEMATOCRIT 31.8 % (37.0-47.0); HEMOGLOBIN 10.6 g/dl (12.0-16.0); MEAN CORPUSCULAR HEMOGLOBIN 30.5 pg (29.0-33.0); MEAN CORPUSCULAR HGB CONC 33.3 g/dl (32.0-37.0); MEAN CORPUSCULAR VOLUME 91.6 fl (82.0-101.0); PLATELET COUNT 32 10^3/UL (140-415); RED BLOOD COUNT 3.47 10^6/ul (4.20-5.40)
[2018-07-11 05:29] LABS: ABNORMAL IP MESSAGE 1
[2018-07-11 05:45] LABS: ADD MAN DIFF? YES; POSITIVE DIFF @See below
[2018-07-11 05:55] LABS: ANION GAP 13 (5-13); BLOOD UREA NITROGEN 74 mg/dl (7-20); CALCIUM 8.3 mg/dl (8.4-10.2); CARBON DIOXIDE 21 mmol/L (21-31); CHLORIDE 108 mmol/L (97-110); CREATININE 1.37 mg/dl (0.44-1.00); Estimated GFR 40 mL/min (>60); GLUCOSE 137 mg/dl (70-220); POTASSIUM 4.7 mmol/L (3.5-5.1); SODIUM 142 mmol/L (135-144)
[2018-07-11] MEDS: LEVOTHYROXINE 75 MCG TAB NGT (06:22)
[2018-07-11] MEDS: AMIODARONE 200 MG TAB NGT ×2 (09:00→22:40)
[2018-07-11] MEDS: FOLIC ACID 1 MG TAB NGT (09:00)
[2018-07-11] MEDS: FAMOTIDINE 20 MG TAB NGT (09:00)
[2018-07-11 09:04] LABS: ANISOCYTOSIS 1+ (0-0); BAND NEUTROPHILS #M 0.1 10^3/ul (0.0-0.6); BAND NEUTROPHILS % (M) 1 % (0-4); BURR CELLS 1+ (0-0); LYMPHOCYTES #M 0.3 10^3/ul (0.8-2.9); LYMPHOCYTES % (M) 2 % (15-51); MICROCYTOSIS 1+ (0-0); OVALOCYTES 1+ (0-0); PLATELET ESTIMATE SIG DECREASED; POIKILOCYTOSIS 1+ (0-0); POLYCHROMASIA 3+ (0-0); SEG NEUT #M 17.9 10^3/ul (1.6-7.5); SEGMENTED NEUTROPHILS (M) % 97 % (39-77); SMUDGE%M 1 % (0-0)
[2018-07-11] MEDS: MIDODRINE 5 MG TAB GTB ×3 (11:08→17:00)
[2018-07-11] MEDS: ARTIFICIAL TEARS 15 ML OPH BOTH EYES ×5 (11:08→22:39)
[2018-07-11] MEDS: BALSAM PERU/CASTOR OIL 60 GM TUBE TOP ×2 (11:10→22:40)
[2018-07-11] MEDS: COLLAGENASE 5 GM (UD JAR) TOP (11:26)
[2018-07-11] MEDS: CASPOFUNGIN 50 MG in SOD CHLORIDE 0.9% 250 ML IVPB (13:44)
[2018-07-11] MEDS: METOCLOPRAMIDE 10 MG INJ IV ×2 (13:44→22:41)
[2018-07-11] MEDS ORDERED: ADENOSINE 6 MG INJ (15:00)
[2018-07-11] MEDS: LORAZEPAM 2 MG INJ IV (15:20)
[2018-07-11] MEDS: SODIUM CHLORIDE 23.4% 154 MEQ in DEXTROSE 10% 1,000 ML IV (16:55)
[2018-07-11] MEDS: ERTAPENEM SODIUM 0.5 GM in SOD CHLORIDE 0.9% 100 ML IVPB (18:51)
[2018-07-12] MEDS: LORAZEPAM 2 MG INJ IV ×2 (00:01→20:43)
[2018-07-12] MEDS: METHYLPREDNISOLONE 40 MG INJ IV ×4 (00:01→17:10)
[2018-07-12] MEDS: ACCU-CHEK XX ×4 (01:53→13:00)
[2018-07-12] MEDS: morphine 2 MG INJ IV (05:33)
[2018-07-12] MEDS: LEVOTHYROXINE 75 MCG TAB NGT (05:34)
[2018-07-12] MEDS: METOCLOPRAMIDE 10 MG INJ IV ×3 (05:34→22:07)
[2018-07-12 08:02] LABS: WHITE BLOOD COUNT 12.9 10^3/ul (4.8-10.8)
[2018-07-12 08:02] LABS: ABNORMAL IP MESSAGE 1; HEMATOCRIT 30.8 % (37.0-47.0); HEMOGLOBIN 10.3 g/dl (12.0-16.0); MEAN CORPUSCULAR HEMOGLOBIN 30.7 pg (29.0-33.0); MEAN CORPUSCULAR HGB CONC 33.4 g/dl (32.0-37.0); MEAN CORPUSCULAR VOLUME 91.7 fl (82.0-101.0); RED BLOOD COUNT 3.36 10^6/ul (4.20-5.40); RED CELL DISTRIBUTION WIDTH 18.2 % (11.5-14.5)
[2018-07-12 08:07] LABS: POSITIVE DIFF @See below
[2018-07-12 08:09] LABS: PLATELET COUNT 25 10^3/UL (140-415)
[2018-07-12 08:10] LABS: ADD MAN DIFF? YES
[2018-07-12 08:20] LABS: ANION GAP 13 (5-13); BLOOD UREA NITROGEN 90 mg/dl (7-20); CALCIUM 7.5 mg/dl (8.4-10.2); CARBON DIOXIDE 20 mmol/L (21-31); CHLORIDE 106 mmol/L (97-110); CREATININE 1.74 mg/dl (0.44-1.00); Estimated GFR 30 mL/min (>60); GLUCOSE 164 mg/dl (70-220); PHOSPHORUS 6.5 mg/dl (2.5-4.9); POTASSIUM 4.8 mmol/L (3.5-5.1); SODIUM 139 mmol/L (135-144)
[2018-07-12] MEDS: ARTIFICIAL TEARS 15 ML OPH BOTH EYES ×4 (09:00→20:43)
[2018-07-12 09:05] LABS: ANISOCYTOSIS 1+ (0-0); LYMPHOCYTES #M 0.5 10^3/ul (0.8-2.9); LYMPHOCYTES % (M) 4 % (15-51); MONOCYTE #M 0.2 10^3/ul (0.3-0.9); MONOCYTES % (M) 2 % (0-11); PLATELET ESTIMATE SIG DECREASED; POIKILOCYTOSIS 1+ (0-0); SEGMENTED NEUTROPHILS (M) % 94 % (39-77); SMUDGE%M 15 % (0-0)
[2018-07-12] MEDS: COLLAGENASE 5 GM (UD JAR) TOP (11:28)
[2018-07-12] MEDS: FAMOTIDINE 20 MG TAB NGT (11:29)
[2018-07-12] MEDS: AMIODARONE 200 MG TAB NGT ×2 (11:29→20:43)
[2018-07-12] MEDS: MIDODRINE 5 MG TAB GTB ×3 (11:29→17:09)
[2018-07-12] MEDS: FOLIC ACID 1 MG TAB NGT (11:30)
[2018-07-12] MEDS: BALSAM PERU/CASTOR OIL 60 GM TUBE TOP ×2 (11:31→20:43)
[2018-07-12] MEDS: CASPOFUNGIN 50 MG in SOD CHLORIDE 0.9% 250 ML IVPB (14:24)
[2018-07-12] MEDS: SODIUM CHLORIDE 23.4% 154 MEQ in DEXTROSE 10% 1,000 ML IV ×2 (14:57→22:11)
[2018-07-12] MEDS: ERTAPENEM SODIUM 0.5 GM in SOD CHLORIDE 0.9% 100 ML IVPB (17:08)
[2018-07-12] MEDS: EPOETIN ALFA-EPBX (ESRD) 10,000 UNIT/ML VIAL SC (17:11)
[2018-07-13] MEDS: METHYLPREDNISOLONE 40 MG INJ IV ×4 (00:41→17:20)
[2018-07-13] MEDS: morphine 2 MG INJ IV (03:37)
[2018-07-13] MEDS: LORAZEPAM 2 MG INJ IV (05:41)
[2018-07-13] MEDS: LEVOTHYROXINE 75 MCG TAB NGT (05:41)
[2018-07-13] MEDS: METOCLOPRAMIDE 10 MG INJ IV ×3 (05:41→22:32)
[2018-07-13] MEDS: COLLAGENASE 5 GM (UD JAR) TOP (08:41)
[2018-07-13] MEDS: AMIODARONE 200 MG TAB NGT ×2 (08:41→20:44)
[2018-07-13] MEDS: FAMOTIDINE 20 MG TAB NGT (08:41)
[2018-07-13] MEDS: FOLIC ACID 1 MG TAB NGT (08:42)
[2018-07-13] MEDS: BALSAM PERU/CASTOR OIL 60 GM TUBE TOP ×2 (08:43→20:45)
[2018-07-13] MEDS: ARTIFICIAL TEARS 15 ML OPH BOTH EYES ×4 (08:43→20:45)
[2018-07-13] MEDS: MIDODRINE 5 MG TAB GTB ×3 (09:00→17:00)
[2018-07-13] MEDS: SODIUM CHLORIDE 23.4% 154 MEQ in DEXTROSE 10% 1,000 ML IV (13:20)
[2018-07-13] MEDS: CASPOFUNGIN 50 MG in SOD CHLORIDE 0.9% 250 ML IVPB (13:20)
[2018-07-13] MEDS: ERTAPENEM SODIUM 0.5 GM in SOD CHLORIDE 0.9% 100 ML IVPB (17:20)
[2018-07-14] MEDS: METHYLPREDNISOLONE 40 MG INJ IV ×4 (00:21→17:23)
[2018-07-14] MEDS: SODIUM CHLORIDE 23.4% 154 MEQ in DEXTROSE 10% 1,000 ML IV (01:33)
[2018-07-14] MEDS: METOCLOPRAMIDE 10 MG INJ IV ×3 (05:16→21:38)
[2018-07-14] MEDS: LEVOTHYROXINE 75 MCG TAB NGT (05:18)
[2018-07-14 06:38] LABS: ADD MAN DIFF? NO
[2018-07-14 06:49] LABS: WHITE BLOOD COUNT 17.1 10^3/ul (4.8-10.8)
[2018-07-14 06:49] LABS: ABNORMAL IP MESSAGE 1; BASOPHILS % 0.1 % (0.0-2.0); HEMATOCRIT 35.1 % (37.0-47.0); HEMOGLOBIN 11.2 g/dl (12.0-16.0); LYMPHOCYTES # 0.3 10^3/ul (0.8-2.9); LYMPHOCYTES % 1.7 % (15.0-51.0); MEAN CORPUSCULAR HEMOGLOBIN 31.1 pg (29.0-33.0); MEAN CORPUSCULAR HGB CONC 31.9 g/dl (32.0-37.0); MEAN CORPUSCULAR VOLUME 97.5 fl (82.0-101.0); MONOCYTE # 0.5 10^3/ul (0.3-0.9); MONOCYTES % 2.9 % (0.0-11.0); NEUTROPHIL # 16.2 10^3/ul (1.6-7.5); NEUTROPHILS % 94.8 % (39.0-77.0); PLATELET COUNT 31 10^3/UL (140-415)
[2018-07-14 07:04] LABS: POSITIVE DIFF @See below
[2018-07-14 07:13] LABS: ANION GAP 10 (5-13); BLOOD UREA NITROGEN 80 mg/dl (7-20); CALCIUM 6.6 mg/dl (8.4-10.2); CARBON DIOXIDE 20 mmol/L (21-31); CHLORIDE 108 mmol/L (97-110); CREATININE 1.47 mg/dl (0.44-1.00); Estimated GFR 37 mL/min (>60); GLUCOSE 179 mg/dl (70-220); POTASSIUM 4.5 mmol/L (3.5-5.1); SODIUM 138 mmol/L (135-144)
[2018-07-14] MEDS: AMIODARONE 200 MG TAB NGT ×3 (08:58→21:38)
[2018-07-14] MEDS: ARTIFICIAL TEARS 15 ML OPH BOTH EYES ×4 (08:58→21:38)
[2018-07-14] MEDS: FAMOTIDINE 20 MG TAB NGT (08:59)
[2018-07-14] MEDS: FOLIC ACID 1 MG TAB NGT (08:59)
[2018-07-14] MEDS: MIDODRINE 5 MG TAB GTB ×3 (09:00→17:00)
[2018-07-14] MEDS: COLLAGENASE 5 GM (UD JAR) TOP (10:09)
[2018-07-14] MEDS: BALSAM PERU/CASTOR OIL 60 GM TUBE TOP ×2 (10:09→21:38)
[2018-07-14] MEDS: ALBUMIN HUMAN 25% 100 ML IV (11:55)
[2018-07-14] MEDS: ALTEPLASE (CATHFLO) 2 MG INJ CATHETER (14:44)
[2018-07-14] MEDS: CASPOFUNGIN 50 MG in SOD CHLORIDE 0.9% 250 ML IVPB (15:32)
[2018-07-14] MEDS: ERTAPENEM SODIUM 0.5 GM in SOD CHLORIDE 0.9% 100 ML IVPB (17:23)
[2018-07-14] MEDS: BIOTENE SALIVA STIMULANT SPRAY MUCOUSMEM (21:48)
[2018-07-15] MEDS: METHYLPREDNISOLONE 40 MG INJ IV ×5 (00:56→23:13)
[2018-07-15] MEDS: SODIUM CHLORIDE 23.4% 154 MEQ in DEXTROSE 10% 1,000 ML IV (03:38)
[2018-07-15] MEDS: METOCLOPRAMIDE 10 MG INJ IV ×3 (06:02→21:10)
[2018-07-15] MEDS: LEVOTHYROXINE 75 MCG TAB NGT (06:02)
[2018-07-15] MEDS: MIDODRINE 5 MG TAB GTB ×3 (09:00→17:00)
[2018-07-15] MEDS: COLLAGENASE 5 GM (UD JAR) TOP (09:32)
[2018-07-15] MEDS: ARTIFICIAL TEARS 15 ML OPH BOTH EYES ×4 (09:33→20:19)
[2018-07-15] MEDS: FOLIC ACID 1 MG TAB NGT (09:33)
[2018-07-15] MEDS: FAMOTIDINE 20 MG TAB NGT (09:33)
[2018-07-15] MEDS: AMIODARONE 200 MG TAB NGT ×2 (09:34→20:19)
[2018-07-15] MEDS: BALSAM PERU/CASTOR OIL 60 GM TUBE TOP ×2 (09:41→20:20)
[2018-07-15] MEDS: CASPOFUNGIN 50 MG in SOD CHLORIDE 0.9% 250 ML IVPB (14:28)
[2018-07-15] MEDS: (Nursing Note) XX ×2 (15:00→19:47)
[2018-07-15] MEDS: EPOETIN ALFA-EPBX (ESRD) 10,000 UNIT/ML VIAL SC (17:00)
[2018-07-15] MEDS: ERTAPENEM SODIUM 0.5 GM in SOD CHLORIDE 0.9% 100 ML IVPB (18:49)
[2018-07-15] MEDS: ACETAMINOPHEN 650MG/20.3ML CUP NGT (20:18)
[2018-07-16] MEDS: SODIUM CHLORIDE 23.4% 154 MEQ in DEXTROSE 10% 1,000 ML IV (05:07)
[2018-07-16] MEDS: METHYLPREDNISOLONE 40 MG INJ IV ×4 (05:07→23:18)
[2018-07-16] MEDS: METOCLOPRAMIDE 10 MG INJ IV ×3 (05:08→21:26)
[2018-07-16] MEDS: LEVOTHYROXINE 75 MCG TAB NGT (06:04)
[2018-07-16] MEDS: (Nursing Note) XX ×2 (09:00→21:00)
[2018-07-16] MEDS: FOLIC ACID 1 MG TAB NGT (09:38)
[2018-07-16] MEDS: COLLAGENASE 5 GM (UD JAR) TOP (09:38)
[2018-07-16] MEDS: FAMOTIDINE 20 MG TAB NGT (09:38)
[2018-07-16] MEDS: AMIODARONE 200 MG TAB NGT ×2 (09:38→21:27)
[2018-07-16] MEDS: MIDODRINE 5 MG TAB GTB ×3 (09:39→17:00)
[2018-07-16] MEDS: ARTIFICIAL TEARS 15 ML OPH BOTH EYES ×4 (09:39→21:27)
[2018-07-16] MEDS: BALSAM PERU/CASTOR OIL 60 GM TUBE TOP ×2 (09:40→21:27)
[2018-07-16] MEDS: ALBUMIN HUMAN 25% 100 ML IV (10:44)
[2018-07-16] MEDS: CASPOFUNGIN 50 MG in SOD CHLORIDE 0.9% 250 ML IVPB (12:10)
[2018-07-16 13:36] LABS: ANA SCREEN NEGATIVE (NEGATIVE)
[2018-07-16] MEDS: ERTAPENEM SODIUM 0.5 GM in SOD CHLORIDE 0.9% 100 ML IVPB (17:33)
[2018-07-17] MEDS: METOCLOPRAMIDE 10 MG INJ IV ×3 (05:23→21:04)
[2018-07-17] MEDS: METHYLPREDNISOLONE 40 MG INJ IV ×4 (05:23→23:49)
[2018-07-17] MEDS: SODIUM CHLORIDE 23.4% 154 MEQ in DEXTROSE 10% 1,000 ML IV (05:32)
[2018-07-17] MEDS: LEVOTHYROXINE 75 MCG TAB NGT (06:05)
[2018-07-17 06:55] LABS: HEMOGLOBIN 7.9 g/dl (12.0-16.0)
[2018-07-17] MEDS: MIDODRINE 5 MG TAB GTB ×3 (08:38→17:21)
[2018-07-17] MEDS: AMIODARONE 200 MG TAB NGT ×2 (08:55→20:53)
[2018-07-17] MEDS: FOLIC ACID 1 MG TAB NGT (08:55)
[2018-07-17] MEDS: FAMOTIDINE 20 MG TAB NGT (08:55)
[2018-07-17] MEDS: ARTIFICIAL TEARS 15 ML OPH BOTH EYES ×4 (08:56→20:53)
[2018-07-17] MEDS: (Nursing Note) XX ×4 (10:30→20:54)
[2018-07-17] MEDS: CASPOFUNGIN 50 MG in SOD CHLORIDE 0.9% 250 ML IVPB (13:37)
[2018-07-17] MEDS: BALSAM PERU/CASTOR OIL 60 GM TUBE TOP ×2 (17:20→20:54)
[2018-07-17] MEDS: COLLAGENASE 5 GM (UD JAR) TOP (17:20)
[2018-07-17] MEDS: ERTAPENEM SODIUM 0.5 GM in SOD CHLORIDE 0.9% 100 ML IVPB (17:21)
[2018-07-17] MEDS: EPOETIN ALFA-EPBX (ESRD) 10,000 UNIT/ML VIAL SC (17:37)
[2018-07-18] MEDS: METHYLPREDNISOLONE 40 MG INJ IV ×2 (05:29→18:00)
[2018-07-18] MEDS: METOCLOPRAMIDE 10 MG INJ IV ×3 (05:29→23:19)
[2018-07-18] MEDS: LEVOTHYROXINE 75 MCG TAB NGT (08:17)
[2018-07-18] MEDS: ARTIFICIAL TEARS 15 ML OPH BOTH EYES ×4 (08:18→23:17)
[2018-07-18] MEDS: FAMOTIDINE 20 MG TAB NGT (08:18)
[2018-07-18] MEDS: AMIODARONE 200 MG TAB NGT (08:19)
[2018-07-18] MEDS: FOLIC ACID 1 MG TAB NGT (08:19)
[2018-07-18] MEDS: MIDODRINE 5 MG TAB GTB ×3 (08:19→19:11)
[2018-07-18] MEDS: COLLAGENASE 5 GM (UD JAR) TOP (08:20)
[2018-07-18] MEDS: BALSAM PERU/CASTOR OIL 60 GM TUBE TOP ×2 (08:20→23:18)
[2018-07-18] MEDS: (Nursing Note) XX ×4 (08:57→21:00)
[2018-07-18] MEDS: CASPOFUNGIN 50 MG in SOD CHLORIDE 0.9% 250 ML IVPB (13:13)
[2018-07-18] MEDS: ERTAPENEM SODIUM 0.5 GM in SOD CHLORIDE 0.9% 100 ML IVPB (18:00)
[2018-07-18] MEDS: ALBUMIN HUMAN 25% 100 ML IV ×2 (18:10→18:56)
[2018-07-19] MEDS: ALBUTEROL 0.083% (NEB) 2.5 MG/3 ML AMP HHN ×6 (00:58→20:25)
[2018-07-19] MEDS: METHYLPREDNISOLONE 40 MG INJ IV ×2 (06:23→17:27)
[2018-07-19] MEDS: METOCLOPRAMIDE 10 MG INJ IV ×3 (06:24→21:32)
[2018-07-19] MEDS: LEVOTHYROXINE 75 MCG TAB NGT (06:24)
[2018-07-19] MEDS: MIDODRINE 5 MG TAB GTB ×3 (09:00→17:26)
[2018-07-19] MEDS: COLLAGENASE 5 GM (UD JAR) TOP (10:09)
[2018-07-19] MEDS: BALSAM PERU/CASTOR OIL 60 GM TUBE TOP ×3 (10:09→21:36)
[2018-07-19] MEDS: ARTIFICIAL TEARS 15 ML OPH BOTH EYES ×4 (10:10→21:28)
[2018-07-19] MEDS: FLUCONAZOLE 100 MG TAB PO (14:25)
[2018-07-19] MEDS: (Nursing Note) XX ×4 (16:20→21:00)
[2018-07-19] MEDS: ERTAPENEM SODIUM 0.5 GM in SOD CHLORIDE 0.9% 100 ML IVPB (17:25)
[2018-07-19] MEDS: EPOETIN ALFA-EPBX (ESRD) 10,000 UNIT/ML VIAL SC (17:27)
[2018-07-20] MEDS: ALBUTEROL 0.083% (NEB) 2.5 MG/3 ML AMP HHN ×6 (01:14→21:53)
[2018-07-20] MEDS: METHYLPREDNISOLONE 40 MG INJ IV ×2 (06:13→17:26)
[2018-07-20] MEDS: METOCLOPRAMIDE 10 MG INJ IV ×3 (06:13→21:33)
[2018-07-20] MEDS: LEVOTHYROXINE 75 MCG TAB NGT (06:13)
[2018-07-20] MEDS: ALBUMIN HUMAN 25% 100 ML IV ×2 (07:44→08:35)
[2018-07-20 08:27] LABS: WHITE BLOOD COUNT 11.4 10^3/ul (4.8-10.8)
[2018-07-20 08:27] LABS: ABNORMAL IP MESSAGE 1; HEMATOCRIT 19.3 % (37.0-47.0); MEAN CORPUSCULAR HEMOGLOBIN 31.9 pg (29.0-33.0); MEAN CORPUSCULAR HGB CONC 33.7 g/dl (32.0-37.0); MEAN CORPUSCULAR VOLUME 94.6 fl (82.0-101.0); RED BLOOD COUNT 2.04 10^6/ul (4.20-5.40)
[2018-07-20 08:36] LABS: HEMOGLOBIN 6.5 g/dl (12.0-16.0)
[2018-07-20 08:37] LABS: ADD MAN DIFF? YES; PLATELET COUNT 20 10^3/UL (140-415); POSITIVE DIFF @See below
[2018-07-20] MEDS: COLLAGENASE 5 GM (UD JAR) TOP (08:50)
[2018-07-20] MEDS: FLUCONAZOLE 100 MG TAB PO (08:50)
[2018-07-20] MEDS: MIDODRINE 5 MG TAB GTB ×3 (08:50→16:50)
[2018-07-20] MEDS: BALSAM PERU/CASTOR OIL 60 GM TUBE TOP ×4 (08:51→21:31)
[2018-07-20] MEDS: ARTIFICIAL TEARS 15 ML OPH BOTH EYES ×4 (08:51→21:32)
[2018-07-20] MEDS: (Nursing Note) XX ×4 (08:51→21:00)
[2018-07-20 09:33] LABS: ANION GAP 12 (5-13); BLOOD UREA NITROGEN 59 mg/dl (7-20); CALCIUM 8.1 mg/dl (8.4-10.2); CARBON DIOXIDE 22 mmol/L (21-31); CHLORIDE 105 mmol/L (97-110); CREATININE 0.98 mg/dl (0.44-1.00); Estimated GFR 58 mL/min (>60); GLUCOSE 119 mg/dl (70-220); MAGNESIUM 1.8 mg/dl (1.7-2.5); PHOSPHORUS 2.7 mg/dl (2.5-4.9); SODIUM 139 mmol/L (135-144)
[2018-07-20 09:38] LABS: POTASSIUM 2.9 mmol/L (3.5-5.1)
[2018-07-20] MEDS: POTASSIUM CHLORIDE (SR) 20 MEQ TAB PO (10:22)
[2018-07-20 10:45] LABS: ANISOCYTOSIS 2+ (0-0); BAND NEUTROPHILS #M 0.6 10^3/ul (0.0-0.6); BAND NEUTROPHILS % (M) 6 % (0-4); BURR CELLS 1+ (0-0); EOSINOPHILS % (M) 3 % (0-7); GIANT THROMBO% (M) 5 % (0-0); HYPOCHROMASIA 1+ (0-0); LYMPHOCYTES #M 0.4 10^3/ul (0.8-2.9); LYMPHOCYTES % (M) 4 % (15-51); MONOCYTE #M 0.3 10^3/ul (0.3-0.9); MONOCYTES % (M) 3 % (0-11); OVALOCYTES 1+ (0-0); PLATELET ESTIMATE SIG DECREASED; POIKILOCYTOSIS 1+ (0-0); SCHISTOCYTES 1+ (0-0); SEG NEUT #M 9.6 10^3/ul (1.6-7.5); SEGMENTED NEUTROPHILS (M) % 84 % (39-77); SMUDGE%M 2 % (0-0)
[2018-07-20 10:55] LABS: IMMEDIATE SPIN CROSSMATCH 1 2
[2018-07-20] MEDS: ERTAPENEM SODIUM 0.5 GM in SOD CHLORIDE 0.9% 100 ML IVPB (17:26)
[2018-07-20] MEDS: ACETAMINOPHEN 650MG/20.3ML CUP NGT (23:53)
[2018-07-21] MEDS: ALBUTEROL 0.083% (NEB) 2.5 MG/3 ML AMP HHN ×6 (01:18→21:06)
[2018-07-21] MEDS: METOCLOPRAMIDE 10 MG INJ IV ×3 (06:10→21:27)
[2018-07-21] MEDS: METHYLPREDNISOLONE 40 MG INJ IV (06:10)
[2018-07-21] MEDS: LEVOTHYROXINE 75 MCG TAB NGT (06:10)
[2018-07-21] MEDS: ACETAMINOPHEN 650MG/20.3ML CUP NGT ×2 (06:21→21:31)
[2018-07-21] MEDS: MIDODRINE 5 MG TAB GTB ×3 (09:00→18:34)
[2018-07-21] MEDS: (Nursing Note) XX ×4 (09:00→21:00)
[2018-07-21] MEDS: ARTIFICIAL TEARS 15 ML OPH BOTH EYES ×4 (09:18→21:31)
[2018-07-21] MEDS: COLLAGENASE 5 GM (UD JAR) TOP (09:19)
[2018-07-21] MEDS: FLUCONAZOLE 100 MG TAB PO (09:20)
[2018-07-21] MEDS: BALSAM PERU/CASTOR OIL 60 GM TUBE TOP ×4 (09:20→21:31)
[2018-07-21] MEDS: ERTAPENEM SODIUM 0.5 GM in SOD CHLORIDE 0.9% 100 ML IVPB (18:35)
[2018-07-22] MEDS: ALBUTEROL 0.083% (NEB) 2.5 MG/3 ML AMP HHN (00:55)
[2018-07-22] MEDS: ALBUTEROL HFA 8 GM INHALER INH ×5 (05:21→19:53)
[2018-07-22] MEDS: METOCLOPRAMIDE 10 MG INJ IV ×3 (06:00→21:41)
[2018-07-22] MEDS: ACETAMINOPHEN 650MG/20.3ML CUP NGT (06:03)
[2018-07-22] MEDS: LEVOTHYROXINE 75 MCG TAB NGT (06:03)
[2018-07-22 06:23] LABS: ABNORMAL IP MESSAGE 1; HEMOGLOBIN 7.2 g/dl (12.0-16.0); MEAN CORPUSCULAR HEMOGLOBIN 31.3 pg (29.0-33.0); MEAN CORPUSCULAR HGB CONC 34.3 g/dl (32.0-37.0); MEAN CORPUSCULAR VOLUME 91.3 fl (82.0-101.0); RED CELL DISTRIBUTION WIDTH 19.1 % (11.5-14.5)
[2018-07-22 06:49] LABS: ANION GAP 10 (5-13); BLOOD UREA NITROGEN 73 mg/dl (7-20); CALCIUM 8.6 mg/dl (8.4-10.2); CARBON DIOXIDE 24 mmol/L (21-31); CHLORIDE 107 mmol/L (97-110); CREATININE 1.06 mg/dl (0.44-1.00); Estimated GFR 53 mL/min (>60); GLUCOSE 143 mg/dl (70-220); MAGNESIUM 1.9 mg/dl (1.7-2.5); PHOSPHORUS 2.6 mg/dl (2.5-4.9); SODIUM 141 mmol/L (135-144)
[2018-07-22 07:08] LABS: MEAN PLATELET VOLUME 15.1 fl (7.4-10.4); POSITIVE DIFF @See below
[2018-07-22 07:10] LABS: ADD MAN DIFF? YES; PLATELET COUNT 16 10^3/UL (140-415)
[2018-07-22] MEDS: ALBUMIN HUMAN 25% 100 ML IV (08:00)
[2018-07-22 08:15] LABS: ANISOCYTOSIS 1+ (0-0); BAND NEUTROPHILS #M 2.5 10^3/ul (0.0-0.6); BAND NEUTROPHILS % (M) 21 % (0-4); BURR CELLS 1+ (0-0); ERYTHROBLAST% (NRBC) (M) 1 % (0-0); GIANT THROMBO% (M) 3 % (0-0); LYMPHOCYTES #M 0.4 10^3/ul (0.8-2.9); LYMPHOCYTES % (M) 4 % (15-51); MICROCYTOSIS 1+ (0-0); MONOCYTE #M 0.1 10^3/ul (0.3-0.9); MONOCYTES % (M) 1 % (0-11); PLATELET ESTIMATE SIG DECREASED; POIKILOCYTOSIS 1+ (0-0); SEG NEUT #M 9.3 10^3/ul (1.6-7.5); SEGMENTED NEUTROPHILS (M) % 75 % (39-77); SMUDGE%M 3 % (0-0); STOMATOCYTES 1+ (0-0); TARGET CELLS 1+ (0-0)
[2018-07-22] MEDS: ARTIFICIAL TEARS 15 ML OPH BOTH EYES ×4 (08:28→21:37)
[2018-07-22] MEDS: FLUCONAZOLE 100 MG TAB PO (08:29)
[2018-07-22] MEDS: COLLAGENASE 5 GM (UD JAR) TOP (08:29)
[2018-07-22] MEDS: METHYLPREDNISOLONE 40 MG INJ IV (08:29)
[2018-07-22] MEDS: MIDODRINE 5 MG TAB GTB ×3 (08:29→16:55)
[2018-07-22] MEDS: BALSAM PERU/CASTOR OIL 60 GM TUBE TOP ×4 (08:30→21:37)
[2018-07-22] MEDS: (Nursing Note) XX ×4 (08:30→21:00)
[2018-07-22 08:37] LABS: HEPATITIS B SURFACE ANTIGEN NEGATIVE (NEGATIVE)
[2018-07-22] MEDS: EPOETIN ALFA-EPBX (ESRD) 10,000 UNIT/ML VIAL SC (16:54)
[2018-07-22] MEDS: ERTAPENEM SODIUM 0.5 GM in SOD CHLORIDE 0.9% 100 ML IVPB (17:00)
[2018-07-22 18:41] LABS: HEMATOCRIT 18.4 % (37.0-47.0)
[2018-07-22 18:53] LABS: HEMOGLOBIN 6.1 g/dl (12.0-16.0)
[2018-07-22] MEDS: SOD CHLORIDE 0.9% 250 ML IV* (21:42)
[2018-07-22 22:07] LABS: TYPE AND SCREEN 1
[2018-07-23] MEDS: ALBUTEROL HFA 8 GM INHALER INH ×6 (01:11→21:19)
[2018-07-23] MEDS: METOCLOPRAMIDE 10 MG INJ IV ×3 (05:56→21:51)
[2018-07-23] MEDS: LEVOTHYROXINE 75 MCG TAB NGT (06:00)
[2018-07-23] MEDS: MIDODRINE 5 MG TAB GTB ×2 (06:41→12:11)
[2018-07-23] MEDS: SOD CHLORIDE 0.9% 250 ML IV ×2 (06:47→07:00)
[2018-07-23 07:22] LABS: OCCULT BLOOD STOOL POSITIVE (NEGATIVE)
[2018-07-23 07:33] LABS: ADD MAN DIFF? NO
[2018-07-23 07:43] LABS: ABNORMAL IP MESSAGE 1; BASOPHIL # 0.1 10^3/ul (0.0-0.1); BASOPHILS % 0.9 % (0.0-2.0); HEMATOCRIT 26.3 % (37.0-47.0); HEMOGLOBIN 8.4 g/dl (12.0-16.0); LYMPHOCYTES # 0.2 10^3/ul (0.8-2.9); LYMPHOCYTES % 2.3 % (15.0-51.0); MEAN CORPUSCULAR HEMOGLOBIN 29.9 pg (29.0-33.0); MEAN CORPUSCULAR HGB CONC 31.9 g/dl (32.0-37.0); MEAN CORPUSCULAR VOLUME 93.6 fl (82.0-101.0); MONOCYTE # 0.1 10^3/ul (0.3-0.9); NEUTROPHIL # 8.9 10^3/ul (1.6-7.5); NUCLEATED RED BLOOD CELLS% 0.3 /100WBC (0.0-0.0); RED BLOOD COUNT 2.81 10^6/ul (4.20-5.40); RED CELL DISTRIBUTION WIDTH 17.8 % (11.5-14.5)
[2018-07-23 07:43] LABS: WHITE BLOOD COUNT 9.3 10^3/ul (4.8-10.8)
[2018-07-23 07:49] LABS: NEUTROPHILS % 95.3 % (39.0-77.0); POSITIVE DIFF @See below
[2018-07-23 07:51] LABS: PLATELET COUNT 16 10^3/UL (140-415)
[2018-07-23 08:06] LABS: ABNORMAL IP MESSAGE 1; HEMATOCRIT 24.9 % (37.0-47.0); HEMOGLOBIN 8.3 g/dl (12.0-16.0); MEAN CORPUSCULAR HEMOGLOBIN 30.1 pg (29.0-33.0); MEAN CORPUSCULAR HGB CONC 33.3 g/dl (32.0-37.0); MEAN CORPUSCULAR VOLUME 90.2 fl (82.0-101.0); NUCLEATED RED BLOOD CELLS% 0.5 /100WBC (0.0-0.0); RED BLOOD COUNT 2.76 10^6/ul (4.20-5.40); RED CELL DISTRIBUTION WIDTH 17.4 % (11.5-14.5)
[2018-07-23 08:06] LABS: WHITE BLOOD COUNT 7.6 10^3/ul (4.8-10.8)
[2018-07-23 08:11] LABS: ANION GAP 16 (5-13); BLOOD UREA NITROGEN 62 mg/dl (7-20); CALCIUM 8.6 mg/dl (8.4-10.2); CARBON DIOXIDE 20 mmol/L (21-31); CHLORIDE 107 mmol/L (97-110); CREATININE 0.71 mg/dl (0.44-1.00); Estimated GFR > 60 mL/min (>60); PHOSPHORUS 2.3 mg/dl (2.5-4.9); POTASSIUM 4.1 mmol/L (3.5-5.1); SODIUM 143 mmol/L (135-144)
[2018-07-23 08:16] LABS: GLUCOSE 50 mg/dl (70-220)
[2018-07-23 08:30] LABS: MAGNESIUM 1.8 mg/dl (1.7-2.5)
[2018-07-23 08:31] LABS: ANION GAP 10 (5-13); BLOOD UREA NITROGEN 70 mg/dl (7-20); CALCIUM 8.8 mg/dl (8.4-10.2); CARBON DIOXIDE 24 mmol/L (21-31); CHLORIDE 106 mmol/L (97-110); CREATININE 0.83 mg/dl (0.44-1.00); Estimated GFR > 60 mL/min (>60); GLUCOSE 78 mg/dl (70-220); POTASSIUM 4.2 mmol/L (3.5-5.1); SODIUM 140 mmol/L (135-144)
[2018-07-23 08:33] LABS: ADD MAN DIFF? YES; PLATELET COUNT 14 10^3/UL (140-415); POSITIVE DIFF @See below
[2018-07-23] MEDS ORDERED: NORepinephrine 8MG/250 ML (PMX 250 ML (08:51)
[2018-07-23] MEDS: (Nursing Note) XX ×4 (09:00→21:00)
[2018-07-23] MEDS: ARTIFICIAL TEARS 15 ML OPH BOTH EYES ×3 (09:00→16:50)
[2018-07-23] MEDS: NORepinephrine 8MG/250 ML (PMX 250 ML IV (09:00)
[2018-07-23] MEDS ORDERED: DILTIAZEM-D5W 125MG/125ML DRIP 125 ML IV (09:30)
[2018-07-23] MEDS ORDERED: LIDOCAINE 1% (MPF) 5 ML VIAL SC (09:30)
[2018-07-23 09:36] LABS: ANISOCYTOSIS 1+ (0-0); BAND NEUTROPHILS #M 2.4 10^3/ul (0.0-0.6); BAND NEUTROPHILS % (M) 26 % (0-4); BURR CELLS 2+ (0-0); GIANT THROMBO% (M) 3 % (0-0); HYPOCHROMASIA 1+ (0-0); LYMPHOCYTES #M 0.2 10^3/ul (0.8-2.9); LYMPHOCYTES % (M) 3 % (15-51); METAMYELOCYTES %M 1 % (0-0); MONOCYTES % (M) 1 % (0-11); OVALOCYTES 1+ (0-0); PLATELET ESTIMATE DECREASED; POIKILOCYTOSIS 2+ (0-0); POLYCHROMASIA 1+ (0-0); REACTIVE LYMPHOCYTES% (M) 1 % (0-0); SEG NEUT #M 6.5 10^3/ul (1.6-7.5); SEGMENTED NEUTROPHILS (M) % 67 % (39-77); SMUDGE%M 3 % (0-0); STOMATOCYTES 1+ (0-0); TEAR DROP CELLS 1+ (0-0)
[2018-07-23] MEDS: COLLAGENASE 5 GM (UD JAR) TOP (10:35)
[2018-07-23] MEDS: FLUCONAZOLE 100 MG TAB PO (10:35)
[2018-07-23] MEDS: BALSAM PERU/CASTOR OIL 60 GM TUBE TOP ×3 (12:12→21:52)
[2018-07-23] MEDS: METHYLPREDNISOLONE 40 MG INJ IV (12:12)
[2018-07-23] MEDS: SOD CHLORIDE 0.9% 250 ML IV* (12:24)
[2018-07-23] MEDS ORDERED: VANCOMYCIN IV PER PHARMACY XX (14:00)
[2018-07-23] MEDS: CLINDAMYCIN 600 MG/D5W (PMX) 50 ML IVPB ×2 (15:30→21:51)
[2018-07-23] MEDS: AMIODARONE 200 MG TAB GTB (21:51)
[2018-07-23] MEDS: MEROPENEM 500MG/50 ML (PMX) 50 ML IVPB (22:19)
[2018-07-24] MEDS: ALBUTEROL HFA 8 GM INHALER INH ×2 (01:00→05:46)
[2018-07-24 06:01] LABS: ABNORMAL IP MESSAGE 1; HEMATOCRIT 15.9 % (37.0-47.0); MEAN CORPUSCULAR HEMOGLOBIN 30.4 pg (29.0-33.0); MEAN CORPUSCULAR HGB CONC 34.6 g/dl (32.0-37.0); MEAN CORPUSCULAR VOLUME 87.8 fl (82.0-101.0); RED BLOOD COUNT 1.81 10^6/ul (4.20-5.40); RED CELL DISTRIBUTION WIDTH 17.1 % (11.5-14.5)
[2018-07-24] MEDS: CLINDAMYCIN 600 MG/D5W (PMX) 50 ML IVPB ×3 (06:04→21:37)
[2018-07-24] MEDS: LEVOTHYROXINE 75 MCG TAB GTB (06:05)
[2018-07-24] MEDS: METOCLOPRAMIDE 10 MG INJ IV ×3 (06:05→21:22)
[2018-07-24 06:30] LABS: ANION GAP 8 (5-13); BLOOD UREA NITROGEN 86 mg/dl (7-20); CALCIUM 8.2 mg/dl (8.4-10.2); CARBON DIOXIDE 24 mmol/L (21-31); CHLORIDE 108 mmol/L (97-110); Estimated GFR > 60 mL/min (>60); GLUCOSE 94 mg/dl (70-220); HEMOGLOBIN 5.5 g/dl (12.0-16.0); MAGNESIUM 1.8 mg/dl (1.7-2.5); PHOSPHORUS 2.5 mg/dl (2.5-4.9); PLATELET COUNT 7 10^3/UL (140-415); POTASSIUM 4.4 mmol/L (3.5-5.1); SODIUM 140 mmol/L (135-144)
[2018-07-24 06:31] LABS: ADD MAN DIFF? YES; POSITIVE DIFF @See below
[2018-07-24] MEDS ORDERED: ALBUTEROL HFA 8 GM INHALER INH (08:00)
[2018-07-24] MEDS: MEROPENEM 500MG/50 ML (PMX) 50 ML IVPB ×2 (08:20→20:24)
[2018-07-24] MEDS: METHYLPREDNISOLONE 40 MG INJ IV (08:21)
[2018-07-24] MEDS: MIDODRINE 5 MG TAB GTB ×4 (08:23→17:56)
[2018-07-24] MEDS: FLUCONAZOLE 100 MG TAB PO (08:23)
[2018-07-24] MEDS: AMIODARONE 200 MG TAB GTB ×2 (08:23→20:25)
[2018-07-24] MEDS: COLLAGENASE 5 GM (UD JAR) TOP (08:24)
[2018-07-24] MEDS: (Nursing Note) XX ×4 (08:24→20:25)
[2018-07-24] MEDS: BALSAM PERU/CASTOR OIL 60 GM TUBE TOP ×2 (08:24→20:25)
[2018-07-24 10:00] LABS: PLATELET COUNT 7 10^3/UL (140-415)
[2018-07-24 10:11] LABS: INR 2.41; PROTIME 26.3 Sec (11.9-14.9); PT RATIO 2.1
[2018-07-24 10:12] LABS: PARTIAL THROMBOPLASTIN TIME 41.7 Sec (23.0-35.0)
[2018-07-24 10:15] LABS: D-DIMER 3878.25 ng/ml (<460)
[2018-07-24 10:16] LABS: THROMBIN TIME 14.4 SEC (13.8-19.1)
[2018-07-24 10:42] LABS: ANISOCYTOSIS 1+ (0-0); BAND NEUTROPHILS #M 2.4 10^3/ul (0.0-0.6); BAND NEUTROPHILS % (M) 35 % (0-4); EOSINOPHILS % (M) 1 % (0-7); HYPOCHROMASIA 2+ (0-0); LYMPHOCYTES #M 0.3 10^3/ul (0.8-2.9); LYMPHOCYTES % (M) 5 % (15-51); METAMYELOCYTES #M 0.1 10^3/ul (0.0-0.0); METAMYELOCYTES %M 2 % (0-0); MICROCYTOSIS 1+ (0-0); MONOCYTES % (M) 1 % (0-11); PLATELET ESTIMATE DECREASED; POLYCHROMASIA 1+ (0-0); SEG NEUT #M 4.1 10^3/ul (1.6-7.5); SEGMENTED NEUTROPHILS (M) % 56 % (39-77); SMUDGE%M 7 % (0-0)
[2018-07-24] MEDS: CASPOFUNGIN 70 MG in SOD CHLORIDE 0.9% 250 ML IVPB (14:39)
[2018-07-24] MEDS: NORepinephrine 8MG/250 ML (PMX 250 ML IV (14:42)
[2018-07-24 15:11] LABS: IMMEDIATE SPIN CROSSMATCH 1 2
[2018-07-24] MEDS ORDERED: PHENYLephrine 20MG IN 250 ML 250 ML IV (17:00)
[2018-07-24] MEDS: EPOETIN ALFA-EPBX (ESRD) 10,000 UNIT/ML VIAL SC (17:57)
[2018-07-25 05:18] LABS: ABNORMAL IP MESSAGE 1; HEMATOCRIT 25.6 % (37.0-47.0); MEAN CORPUSCULAR HEMOGLOBIN 29.9 pg (29.0-33.0); MEAN CORPUSCULAR HGB CONC 35.2 g/dl (32.0-37.0); MEAN PLATELET VOLUME 12.2 fl (7.4-10.4); RED BLOOD COUNT 3.01 10^6/ul (4.20-5.40); RED CELL DISTRIBUTION WIDTH 14.8 % (11.5-14.5)
[2018-07-25 05:18] LABS: WHITE BLOOD COUNT 5.7 10^3/ul (4.8-10.8)
[2018-07-25] MEDS: METOCLOPRAMIDE 10 MG INJ IV ×3 (05:33→21:15)
[2018-07-25] MEDS: CLINDAMYCIN 600 MG/D5W (PMX) 50 ML IVPB ×3 (05:33→21:14)
[2018-07-25 05:44] LABS: ADD MAN DIFF? YES; POSITIVE DIFF @See below
[2018-07-25 05:46] LABS: PLATELET COUNT 2 10^3/UL (140-415)
[2018-07-25 05:49] LABS: ANION GAP 7 (5-13); BLOOD UREA NITROGEN 77 mg/dl (7-20); CALCIUM 8.2 mg/dl (8.4-10.2); CARBON DIOXIDE 27 mmol/L (21-31); CHLORIDE 105 mmol/L (97-110); CREATININE 0.76 mg/dl (0.44-1.00); Estimated GFR > 60 mL/min (>60); GLUCOSE 135 mg/dl (70-220); POTASSIUM 4.3 mmol/L (3.5-5.1); SODIUM 139 mmol/L (135-144)
[2018-07-25 07:57] LABS: ANISOCYTOSIS 1+ (0-0); BAND NEUTROPHILS % (M) 1 % (0-4); BURR CELLS 1+ (0-0); GIANT THROMBO% (M) 1 % (0-0); LYMPHOCYTES #M 0.4 10^3/ul (0.8-2.9); LYMPHOCYTES % (M) 8 % (15-51); MICROCYTOSIS 1+ (0-0); MONOCYTES % (M) 1 % (0-11); PLATELET ESTIMATE SIG DECREASED; POIKILOCYTOSIS 1+ (0-0); SEG NEUT #M 5.1 10^3/ul (1.6-7.5); SEGMENTED NEUTROPHILS (M) % 90 % (39-77); SMUDGE%M 10 % (0-0)
[2018-07-25] MEDS: MIDODRINE 5 MG TAB GTB ×3 (08:31→17:00)
[2018-07-25] MEDS: LEVOTHYROXINE 75 MCG TAB GTB (08:31)
[2018-07-25] MEDS: METHYLPREDNISOLONE 40 MG INJ IV (08:31)
[2018-07-25] MEDS: AMIODARONE 200 MG TAB GTB ×2 (08:32→20:19)
[2018-07-25] MEDS: COLLAGENASE 5 GM (UD JAR) TOP (08:33)
[2018-07-25] MEDS: BALSAM PERU/CASTOR OIL 60 GM TUBE TOP ×2 (08:34→20:19)
[2018-07-25] MEDS: (Nursing Note) XX ×4 (09:00→20:20)
[2018-07-25] MEDS: MEROPENEM 500MG/50 ML (PMX) 50 ML IVPB ×2 (09:36→20:18)
[2018-07-25] MEDS: CASPOFUNGIN 50 MG in SOD CHLORIDE 0.9% 250 ML IVPB (12:37)
[2018-07-25 13:43] LABS: TYPE AND SCREEN 1
[2018-07-25] MEDS: DEXTROSE 5%-0.45% NACL 1,000 ML IV (23:54)
[2018-07-26 05:23] LABS: ABNORMAL IP MESSAGE 1; HEMATOCRIT 22.5 % (37.0-47.0); HEMOGLOBIN 7.8 g/dl (12.0-16.0); MEAN CORPUSCULAR HEMOGLOBIN 29.2 pg (29.0-33.0); MEAN CORPUSCULAR HGB CONC 34.7 g/dl (32.0-37.0); MEAN CORPUSCULAR VOLUME 84.3 fl (82.0-101.0); RED BLOOD COUNT 2.67 10^6/ul (4.20-5.40); RED CELL DISTRIBUTION WIDTH 14.9 % (11.5-14.5)
[2018-07-26] MEDS: CLINDAMYCIN 600 MG/D5W (PMX) 50 ML IVPB ×3 (05:26→21:19)
[2018-07-26] MEDS: METOCLOPRAMIDE 10 MG INJ IV ×3 (05:26→21:19)
[2018-07-26 05:41] LABS: PLATELET COUNT 8 10^3/UL (140-415); POSITIVE DIFF @See below
[2018-07-26 05:42] LABS: ADD MAN DIFF? YES; PROTIME 19.1 Sec (11.9-14.9); PT RATIO 1.5
[2018-07-26 05:42] LABS: PARTIAL THROMBOPLASTIN TIME 39.8 Sec (23.0-35.0)
[2018-07-26 05:43] LABS: ANION GAP 10 (5-13); BLOOD UREA NITROGEN 96 mg/dl (7-20); CALCIUM 8.5 mg/dl (8.4-10.2); CARBON DIOXIDE 24 mmol/L (21-31); CHLORIDE 106 mmol/L (97-110); Estimated GFR > 60 mL/min (>60); GLUCOSE 73 mg/dl (70-220); PARTIAL THROMBOPLASTIN TIME 40.9 Sec (23.0-35.0); POTASSIUM 4.6 mmol/L (3.5-5.1); SODIUM 140 mmol/L (135-144)
[2018-07-26] MEDS: LEVOTHYROXINE 75 MCG TAB GTB (06:34)
[2018-07-26] MEDS: COLLAGENASE 5 GM (UD JAR) TOP (07:58)
[2018-07-26] MEDS: AMIODARONE 200 MG TAB GTB (07:58)
[2018-07-26] MEDS: MIDODRINE 5 MG TAB GTB ×3 (07:58→16:59)
[2018-07-26] MEDS: METHYLPREDNISOLONE 40 MG INJ IV (07:58)
[2018-07-26] MEDS: (Nursing Note) XX ×2 (07:58→07:59)
[2018-07-26] MEDS: BALSAM PERU/CASTOR OIL 60 GM TUBE TOP ×2 (07:58→21:18)
[2018-07-26] MEDS: MEROPENEM 500MG/50 ML (PMX) 50 ML IVPB ×2 (07:58→21:18)
[2018-07-26 08:08] LABS: BAND NEUTROPHILS #M 0.1 10^3/ul (0.0-0.6); BAND NEUTROPHILS % (M) 8 % (0-4); BURR CELLS 2+ (0-0); GIANT THROMBO% (M) 39 % (0-0); LYMPHOCYTES #M 0.4 10^3/ul (0.8-2.9); LYMPHOCYTES % (M) 24 % (15-51); MICROCYTOSIS 1+ (0-0); PLATELET ESTIMATE SIG DECREASED; POIKILOCYTOSIS 3+ (0-0); SEG NEUT #M 1.4 10^3/ul (1.6-7.5); SEGMENTED NEUTROPHILS (M) % 68 % (39-77); SMUDGE%M 31 % (0-0); SPHEROCYTES 1+ (0-0)
[2018-07-26] MEDS: ACCU-CHEK XX (09:09)
[2018-07-26] MEDS: NORepinephrine 8MG/250 ML (PMX 250 ML IV ×2 (10:30→17:54)
[2018-07-26 10:56] LABS: GLUCOSE 54 mg/dl (70-220)
[2018-07-26] MEDS: DEXTROSE 50% 50 ML SYRINGE IV (11:09)
[2018-07-26] MEDS ORDERED: IMMUNE GLOBULIN (HUMAN) 6 GM INJ IV (11:29)
[2018-07-26] MEDS: DEXTROSE 10% 1,000 ML IV (12:13)
[2018-07-26] MEDS: ARTIFICIAL TEARS 15 ML OPH BOTH EYES ×2 (13:57→16:54)
[2018-07-26] MEDS: OCULAR LUBRICANT 3.5 GM OPH OINT BOTH EYES ×2 (13:59→16:54)
[2018-07-26] MEDS: CASPOFUNGIN 50 MG in SOD CHLORIDE 0.9% 250 ML IVPB (14:00)
[2018-07-26] MEDS: AMIODARONE 150MG/D5W BOLUS 100 ML IV (14:49)
[2018-07-26] MEDS: GLY IV (16:53)
[2018-07-26] MEDS: IMMUNE GLOBUL IV (16:53)
[2018-07-26] MEDS: [UNRECOGNIZED DRUG - OTHER] IV (16:53)
[2018-07-26] MEDS: IMMUNE GLOBULIN IV (16:53)
[2018-07-26] MEDS: IGA AVG IV (16:53)
[2018-07-26] MEDS: EPOETIN ALFA-EPBX (ESRD) 10,000 UNIT/ML VIAL SC (16:54)
[2018-07-27] MEDS: OCULAR LUBRICANT 3.5 GM OPH OINT BOTH EYES ×4 (01:15→18:15)
[2018-07-27] MEDS: ARTIFICIAL TEARS 15 ML OPH BOTH EYES ×4 (01:15→18:15)
[2018-07-27] MEDS: LEVOTHYROXINE 75 MCG TAB GTB (05:58)
[2018-07-27] MEDS: DEXTROSE 50% 50 ML SYRINGE IV ×2 (06:18→13:23)
[2018-07-27] MEDS: METOCLOPRAMIDE 10 MG INJ IV ×3 (06:18→22:09)
[2018-07-27] MEDS: CLINDAMYCIN 600 MG/D5W (PMX) 50 ML IVPB ×3 (06:18→22:09)
[2018-07-27] MEDS: MEROPENEM 500MG/50 ML (PMX) 50 ML IVPB ×2 (08:02→22:08)
[2018-07-27] MEDS: BALSAM PERU/CASTOR OIL 60 GM TUBE TOP ×2 (08:03→22:09)
[2018-07-27] MEDS: ACCU-CHEK XX ×4 (08:03→21:00)
[2018-07-27] MEDS: COLLAGENASE 5 GM (UD JAR) TOP (08:03)
[2018-07-27] MEDS: AMIODARONE 150MG/D5W BOLUS 100 ML IV (08:03)
[2018-07-27] MEDS: MIDODRINE 5 MG TAB GTB ×3 (09:00→17:00)
[2018-07-27] MEDS: DEXTROSE 10% 1,000 ML IV ×2 (12:00→15:52)
[2018-07-27] MEDS: INSULIN ASPART [NOVOLOG] 3 ML PEN SC ×3 (13:00→21:00)
[2018-07-27] MEDS: CASPOFUNGIN 50 MG in SOD CHLORIDE 0.9% 250 ML IVPB (13:13)
[2018-07-28] MEDS: ARTIFICIAL TEARS 15 ML OPH BOTH EYES ×4 (00:51→17:51)
[2018-07-28] MEDS: OCULAR LUBRICANT 3.5 GM OPH OINT BOTH EYES ×4 (00:51→17:52)
[2018-07-28] MEDS: INSULIN ASPART [NOVOLOG] 3 ML PEN SC ×6 (01:00→21:00)
[2018-07-28] MEDS: ACCU-CHEK XX ×6 (01:07→21:00)
[2018-07-28] MEDS ORDERED: ACCU-CHEK XX (02:00)
[2018-07-28] MEDS: CLINDAMYCIN 600 MG/D5W (PMX) 50 ML IVPB ×2 (05:48→15:32)
[2018-07-28] MEDS: METOCLOPRAMIDE 10 MG INJ IV ×3 (05:49→21:41)
[2018-07-28 06:12] LABS: WHITE BLOOD COUNT 3.7 10^3/ul (4.8-10.8)
[2018-07-28 06:12] LABS: ABNORMAL IP MESSAGE 1; HEMATOCRIT 22.4 % (37.0-47.0); HEMOGLOBIN 7.9 g/dl (12.0-16.0); MEAN CORPUSCULAR HEMOGLOBIN 29.5 pg (29.0-33.0); MEAN CORPUSCULAR HGB CONC 35.3 g/dl (32.0-37.0); MEAN CORPUSCULAR VOLUME 83.6 fl (82.0-101.0); RED BLOOD COUNT 2.68 10^6/ul (4.20-5.40); RED CELL DISTRIBUTION WIDTH 14.5 % (11.5-14.5)
[2018-07-28 06:14] LABS: ADD MAN DIFF? YES; PLATELET COUNT 4 10^3/UL (140-415); POSITIVE DIFF @See below
[2018-07-28] MEDS: LEVOTHYROXINE 75 MCG TAB GTB (06:24)
[2018-07-28 06:57] LABS: ANION GAP 11 (5-13); BLOOD UREA NITROGEN 95 mg/dl (7-20); CALCIUM 7.6 mg/dl (8.4-10.2); CARBON DIOXIDE 22 mmol/L (21-31); CHLORIDE 99 mmol/L (97-110); CREATININE 0.85 mg/dl (0.44-1.00); Estimated GFR > 60 mL/min (>60); GLUCOSE 102 mg/dl (70-220); POTASSIUM 4.3 mmol/L (3.5-5.1); SODIUM 132 mmol/L (135-144)
[2018-07-28 07:39] LABS: ANISOCYTOSIS 1+ (0-0); BAND NEUTROPHILS #M 0.6 10^3/ul (0.0-0.6); BAND NEUTROPHILS % (M) 18 % (0-4); BURR CELLS 1+ (0-0); GIANT THROMBO% (M) 8 % (0-0); LYMPHOCYTES #M 0.8 10^3/ul (0.8-2.9); LYMPHOCYTES % (M) 24 % (15-51); PLATELET ESTIMATE SIG DECREASED; POIKILOCYTOSIS 3+ (0-0); SEG NEUT #M 2.2 10^3/ul (1.6-7.5); SEGMENTED NEUTROPHILS (M) % 58 % (39-77); SMUDGE%M 3 % (0-0); TARGET CELLS 1+ (0-0); TOXIC GRANULATION 2+ (0-0)
[2018-07-28] MEDS: DEXTROSE 50% 50 ML SYRINGE IV ×2 (08:04→18:00)
[2018-07-28] MEDS: AMIODARONE 150MG/D5W BOLUS 100 ML IV (08:08)
[2018-07-28 08:18] LABS: LACTIC ACID 1.8 mmol/L (0.5-2.0)
[2018-07-28] MEDS: MIDODRINE 5 MG TAB GTB ×3 (08:20→17:00)
[2018-07-28] MEDS: MEROPENEM 500MG/50 ML (PMX) 50 ML IVPB (08:21)
[2018-07-28] MEDS: CASPOFUNGIN 50 MG in SOD CHLORIDE 0.9% 250 ML IVPB (13:31)
[2018-07-28] MEDS: BALSAM PERU/CASTOR OIL 60 GM TUBE TOP ×2 (15:48→21:41)
[2018-07-28 15:57] LABS: WHITE BLOOD COUNT 4.2 10^3/ul (4.8-10.8)
[2018-07-28 15:57] LABS: ABNORMAL IP MESSAGE 1; HEMATOCRIT 22.5 % (37.0-47.0); HEMOGLOBIN 7.9 g/dl (12.0-16.0); MEAN CORPUSCULAR HEMOGLOBIN 29.4 pg (29.0-33.0); MEAN CORPUSCULAR HGB CONC 35.1 g/dl (32.0-37.0); MEAN CORPUSCULAR VOLUME 83.6 fl (82.0-101.0); RED BLOOD COUNT 2.69 10^6/ul (4.20-5.40); RED CELL DISTRIBUTION WIDTH 14.5 % (11.5-14.5)
[2018-07-28] MEDS: COLLAGENASE 5 GM (UD JAR) TOP (15:58)
[2018-07-28 16:09] LABS: ADD MAN DIFF? YES; PLATELET COUNT 3 10^3/UL (140-415); POSITIVE DIFF @See below
[2018-07-28 16:39] LABS: ANISOCYTOSIS 2+ (0-0); BAND NEUTROPHILS #M 0.2 10^3/ul (0.0-0.6); BAND NEUTROPHILS % (M) 7 % (0-4); BURR CELLS 3+ (0-0); EOSINOPHILS % (M) 1 % (0-7); ERYTHROBLAST% (NRBC) (M) 1 % (0-0); GIANT THROMBO% (M) 2 % (0-0); LYMPHOCYTES #M 0.2 10^3/ul (0.8-2.9); LYMPHOCYTES % (M) 7 % (15-51); MONOCYTE #M 0.2 10^3/ul (0.3-0.9); MONOCYTES % (M) 6 % (0-11); POIKILOCYTOSIS 3+ (0-0); POLYCHROMASIA 1+ (0-0); SEG NEUT #M 3.3 10^3/ul (1.6-7.5); SEGMENTED NEUTROPHILS (M) % 79 % (39-77); SMUDGE%M 30 % (0-0)
[2018-07-28 17:21] LABS: TYPE AND SCREEN 1
[2018-07-28] MEDS: morphine 2 MG INJ IV (17:49)
[2018-07-28 20:07] LABS: HEPARIN INDUCED PLATELET AB NEGATIVE (NEGATIVE)
[2018-07-28 20:27] LABS: ABNORMAL IP MESSAGE 1; HEMATOCRIT 21.1 % (37.0-47.0); HEMOGLOBIN 7.4 g/dl (12.0-16.0); MEAN CORPUSCULAR HEMOGLOBIN 29.5 pg (29.0-33.0); MEAN CORPUSCULAR HGB CONC 35.1 g/dl (32.0-37.0); MEAN CORPUSCULAR VOLUME 84.1 fl (82.0-101.0); MEAN PLATELET VOLUME 10.7 fl (7.4-10.4); RED BLOOD COUNT 2.51 10^6/ul (4.20-5.40); RED CELL DISTRIBUTION WIDTH 14.6 % (11.5-14.5)
[2018-07-28 20:27] LABS: WHITE BLOOD COUNT 3.1 10^3/ul (4.8-10.8)
[2018-07-28 20:40] LABS: ADD MAN DIFF? YES; PLATELET COUNT 30 10^3/UL (140-415); POSITIVE DIFF @See below
[2018-07-28 21:12] LABS: ACANTHOCYTES 2+ (0-0); ANISOCYTOSIS 3+ (0-0); BAND NEUTROPHILS #M 0.2 10^3/ul (0.0-0.6); BAND NEUTROPHILS % (M) 7 % (0-4); BURR CELLS 2+ (0-0); ERYTHROBLAST% (NRBC) (M) 1 % (0-0); GIANT THROMBO% (M) 2 % (0-0); LYMPHOCYTES #M 0.3 10^3/ul (0.8-2.9); LYMPHOCYTES % (M) 11 % (15-51); METAMYELOCYTES %M 3 % (0-0); MICROCYTOSIS 2+ (0-0); PLATELET ESTIMATE SIG DECREASED; POIKILOCYTOSIS 3+ (0-0); POLYCHROMASIA 3+ (0-0); REACTIVE LYMPHOCYTES% (M) 1 % (0-0); SEG NEUT #M 2.4 10^3/ul (1.6-7.5); SEGMENTED NEUTROPHILS (M) % 78 % (39-77); SMUDGE%M 9 % (0-0)
[2018-07-28] MEDS: DEXTROSE 10% 1,000 ML IV (21:42)
[2018-07-28] MEDS: ALBUMIN HUMAN 25% 100 ML IV (21:52)
[2018-07-29] MEDS: ACCU-CHEK XX ×6 (01:00→20:31)
[2018-07-29] MEDS: INSULIN ASPART [NOVOLOG] 3 ML PEN SC ×6 (01:00→21:00)
[2018-07-29] MEDS: OCULAR LUBRICANT 3.5 GM OPH OINT BOTH EYES ×5 (01:02→23:25)
[2018-07-29] MEDS: MEROPENEM 500MG/50 ML (PMX) 50 ML IVPB ×3 (01:02→23:25)
[2018-07-29] MEDS: ARTIFICIAL TEARS 15 ML OPH BOTH EYES ×5 (01:02→23:25)
[2018-07-29] MEDS: CLINDAMYCIN 600 MG/D5W (PMX) 50 ML IVPB ×3 (01:52→17:53)
[2018-07-29 06:18] LABS: ABNORMAL IP MESSAGE 1; HEMATOCRIT 18.9 % (37.0-47.0); MEAN CORPUSCULAR VOLUME 83.3 fl (82.0-101.0); RED BLOOD COUNT 2.27 10^6/ul (4.20-5.40); RED CELL DISTRIBUTION WIDTH 14.2 % (11.5-14.5)
[2018-07-29 06:18] LABS: WHITE BLOOD COUNT 2.2 10^3/ul (4.8-10.8)
[2018-07-29 06:19] LABS: ANION GAP 8 (5-13); BLOOD UREA NITROGEN 54 mg/dl (7-20); CALCIUM 7.5 mg/dl (8.4-10.2); CARBON DIOXIDE 26 mmol/L (21-31); CHLORIDE 101 mmol/L (97-110); CREATININE 0.58 mg/dl (0.44-1.00); Estimated GFR > 60 mL/min (>60); GLUCOSE 76 mg/dl (70-220); POTASSIUM 3.6 mmol/L (3.5-5.1); SODIUM 135 mmol/L (135-144)
[2018-07-29] MEDS: METOCLOPRAMIDE 10 MG INJ IV ×3 (06:19→21:09)
[2018-07-29] MEDS: LEVOTHYROXINE 75 MCG TAB GTB (06:19)
[2018-07-29 06:21] LABS: MAGNESIUM 1.8 mg/dl (1.7-2.5)
[2018-07-29 06:21] LABS: PHOSPHORUS 2.9 mg/dl (2.5-4.9)
[2018-07-29 06:30] LABS: ADD MAN DIFF? YES; HEMOGLOBIN 6.8 g/dl (12.0-16.0); PLATELET COUNT 3 10^3/UL (140-415); POSITIVE DIFF @See below
[2018-07-29 07:59] LABS: ANISOCYTOSIS 1+ (0-0); BAND NEUTROPHILS % (M) 2 % (0-4); EOSINOPHILS % (M) 5 % (0-7); ERYTHROBLAST% (NRBC) (M) 1 % (0-0); GIANT THROMBO% (M) 4 % (0-0); LYMPHOCYTES #M 0.6 10^3/ul (0.8-2.9); LYMPHOCYTES % (M) 29 % (15-51); MONOCYTES % (M) 2 % (0-11); PLATELET ESTIMATE SIG DECREASED; REACTIVE LYMPHOCYTES% (M) 1 % (0-0); SEG NEUT #M 1.4 10^3/ul (1.6-7.5); SEGMENTED NEUTROPHILS (M) % 62 % (39-77); SMUDGE%M 12 % (0-0)
[2018-07-29] MEDS: morphine 2 MG INJ IV (08:23)
[2018-07-29] MEDS: DEXTROSE 50% 50 ML SYRINGE IV ×4 (08:24→21:09)
[2018-07-29] MEDS: MIDODRINE 5 MG TAB GTB ×3 (08:27→16:24)
[2018-07-29] MEDS: AMIODARONE 150MG/D5W BOLUS 100 ML IV (08:28)
[2018-07-29 08:59] LABS: IMMEDIATE SPIN CROSSMATCH 1 1
[2018-07-29] MEDS: SOD CHLORIDE 0.9% 250 ML IV* (09:11)
[2018-07-29] MEDS: CASPOFUNGIN 50 MG in SOD CHLORIDE 0.9% 250 ML IVPB (13:13)
[2018-07-29] MEDS: DEXTROSE 10% 1,000 ML IV ×2 (13:59→21:10)
[2018-07-29] MEDS: BALSAM PERU/CASTOR OIL 60 GM TUBE TOP ×2 (16:43→21:11)
[2018-07-29] MEDS: COLLAGENASE 5 GM (UD JAR) TOP (16:43)
[2018-07-29] MEDS: EPOETIN ALFA-EPBX (ESRD) 10,000 UNIT/ML VIAL SC (18:06)
[2018-07-29] MEDS ORDERED: NORepinephrine 8MG/250 ML (PMX 250 ML IV (22:30)
[2018-07-29] MEDS: PHENYLephrine 20MG IN 250 ML 250 ML IV (22:32)
[2018-07-29] MEDS: METOPROLOL 5 MG INJ IV (23:32)
[2018-07-30 00:11] LABS: PLATELET ANTIBODY - IGA NEGATIVE (NEGATIVE); PLATELET ANTIBODY - IGG NEGATIVE (NEGATIVE); PLATELET ANTIBODY - IGM NEGATIVE (NEGATIVE)
[2018-07-30] MEDS: INSULIN ASPART [NOVOLOG] 3 ML PEN SC ×6 (00:48→21:00)
[2018-07-30] MEDS: ACCU-CHEK XX ×6 (00:48→21:34)
[2018-07-30] MEDS: CLINDAMYCIN 600 MG/D5W (PMX) 50 ML IVPB ×3 (00:49→17:21)
[2018-07-30] MEDS: PHENYLephrine 20MG IN 250 ML 250 ML IV (03:25)
[2018-07-30 05:52] LABS: WHITE BLOOD COUNT 5.3 10^3/ul (4.8-10.8)
[2018-07-30 05:52] LABS: ABNORMAL IP MESSAGE 1; HEMATOCRIT 25.1 % (37.0-47.0); HEMOGLOBIN 9.1 g/dl (12.0-16.0); MEAN CORPUSCULAR HEMOGLOBIN 30.5 pg (29.0-33.0); MEAN CORPUSCULAR HGB CONC 36.3 g/dl (32.0-37.0); MEAN CORPUSCULAR VOLUME 84.2 fl (82.0-101.0); RED BLOOD COUNT 2.98 10^6/ul (4.20-5.40); RED CELL DISTRIBUTION WIDTH 13.4 % (11.5-14.5)
[2018-07-30] MEDS: LEVOTHYROXINE 75 MCG TAB GTB (06:04)
[2018-07-30] MEDS: OCULAR LUBRICANT 3.5 GM OPH OINT BOTH EYES ×3 (06:04→17:24)
[2018-07-30] MEDS: METOCLOPRAMIDE 10 MG INJ IV ×3 (06:04→21:34)
[2018-07-30] MEDS: ARTIFICIAL TEARS 15 ML OPH BOTH EYES ×3 (06:04→17:24)
[2018-07-30 06:21] LABS: ADD MAN DIFF? YES; POSITIVE DIFF @See below
[2018-07-30 06:22] LABS: PLATELET COUNT 4 10^3/UL (140-415)
[2018-07-30 06:24] LABS: ALANINE AMINOTRANSFERASE 29 IU/L (13-69); ALBUMIN 1.9 g/dl (3.3-4.9); ALKALINE PHOSPHATASE 120 IU/L (42-121); ANION GAP 9 (5-13); ASPARTATE AMINO TRANSFERASE 23 IU/L (15-46); BILIRUBIN,INDIRECT 1.8 mg/dl (0-1.1); BILIRUBIN,TOTAL 3.3 mg/dl (0.2-1.3); BLOOD UREA NITROGEN 64 mg/dl (7-20); CALCIUM 6.9 mg/dl (8.4-10.2); CARBON DIOXIDE 23 mmol/L (21-31); CHLORIDE 99 mmol/L (97-110); CREATININE 0.68 mg/dl (0.44-1.00); Estimated GFR > 60 mL/min (>60); GLUCOSE 94 mg/dl (70-220); POTASSIUM 3.8 mmol/L (3.5-5.1); SODIUM 131 mmol/L (135-144); TOTAL PROTEIN 4.6 g/dl (6.1-8.1)
[2018-07-30 06:26] LABS: MAGNESIUM 1.6 mg/dl (1.7-2.5)
[2018-07-30 06:26] LABS: PHOSPHORUS 3.5 mg/dl (2.5-4.9)
[2018-07-30] MEDS: PHENYLephrine 80 MG in DEXTROSE 5% 242 ML IV ×2 (07:04→19:21)
[2018-07-30 07:51] LABS: ANISOCYTOSIS 1+ (0-0); BAND NEUTROPHILS #M 0.9 10^3/ul (0.0-0.6); BAND NEUTROPHILS % (M) 17 % (0-4); BURR CELLS 2+ (0-0); LYMPHOCYTES #M 0.4 10^3/ul (0.8-2.9); LYMPHOCYTES % (M) 9 % (15-51); MONOCYTE #M 0.1 10^3/ul (0.3-0.9); MONOCYTES % (M) 2 % (0-11); PLATELET ESTIMATE SIG DECREASED; POIKILOCYTOSIS 3+ (0-0); SEG NEUT #M 3.9 10^3/ul (1.6-7.5); SEGMENTED NEUTROPHILS (M) % 72 % (39-77); SMUDGE%M 12 % (0-0)
[2018-07-30] MEDS: AMIODARONE 150MG/D5W BOLUS 100 ML IV ×2 (08:49→10:58)
[2018-07-30] MEDS: MIDODRINE 5 MG TAB GTB ×3 (08:50→17:00)
[2018-07-30] MEDS: MAGNESIUM SULFATE 2 GM/50 ML 50 ML IVPB (09:03)
[2018-07-30] MEDS: BALSAM PERU/CASTOR OIL 60 GM TUBE TOP ×2 (09:04→21:33)
[2018-07-30] MEDS: COLLAGENASE 5 GM (UD JAR) TOP (09:05)
[2018-07-30] MEDS: DEXTROSE 50% 50 ML SYRINGE IV (10:29)
[2018-07-30] MEDS: MEROPENEM 500MG/50 ML (PMX) 50 ML IVPB (12:30)
[2018-07-30] MEDS: CASPOFUNGIN 50 MG in SOD CHLORIDE 0.9% 250 ML IVPB (13:15)
[2018-07-30] MEDS: DEXTROSE 10% 1,000 ML IV (21:33)
[2018-07-31] MEDS: INSULIN ASPART [NOVOLOG] 3 ML PEN SC ×6 (01:00→21:00)
[2018-07-31] MEDS: ACCU-CHEK XX ×6 (01:18→21:35)
[2018-07-31] MEDS: CLINDAMYCIN 600 MG/D5W (PMX) 50 ML IVPB ×3 (01:18→17:26)
[2018-07-31] MEDS: OCULAR LUBRICANT 3.5 GM OPH OINT BOTH EYES ×5 (01:18→23:11)
[2018-07-31] MEDS: MEROPENEM 500MG/50 ML (PMX) 50 ML IVPB ×3 (01:18→23:11)
[2018-07-31] MEDS: ARTIFICIAL TEARS 15 ML OPH BOTH EYES ×5 (01:18→23:11)
[2018-07-31] MEDS: PHENYLephrine 80 MG in DEXTROSE 5% 242 ML IV ×4 (02:02→21:43)
[2018-07-31] MEDS: METOCLOPRAMIDE 10 MG INJ IV ×3 (05:56→21:34)
[2018-07-31 06:03] LABS: WHITE BLOOD COUNT 7.3 10^3/ul (4.8-10.8)
[2018-07-31 06:03] LABS: ABNORMAL IP MESSAGE 1; HEMATOCRIT 19.9 % (37.0-47.0); HEMOGLOBIN 7.2 g/dl (12.0-16.0); MEAN CORPUSCULAR HEMOGLOBIN 30.4 pg (29.0-33.0); MEAN CORPUSCULAR HGB CONC 36.2 g/dl (32.0-37.0); RED BLOOD COUNT 2.37 10^6/ul (4.20-5.40); RED CELL DISTRIBUTION WIDTH 13.5 % (11.5-14.5)
[2018-07-31] MEDS: NORepinephrine 8MG/250 ML (PMX 250 ML IV ×3 (06:16→22:38)
[2018-07-31] MEDS: LEVOTHYROXINE 75 MCG TAB GTB (06:17)
[2018-07-31 06:25] LABS: ADD MAN DIFF? YES; PLATELET COUNT 4 10^3/UL (140-415); POSITIVE DIFF @See below
[2018-07-31 06:39] LABS: ANION GAP 9 (5-13); BLOOD UREA NITROGEN 70 mg/dl (7-20); CARBON DIOXIDE 21 mmol/L (21-31); CHLORIDE 94 mmol/L (97-110); CREATININE 0.82 mg/dl (0.44-1.00); Estimated GFR > 60 mL/min (>60); GLUCOSE 102 mg/dl (70-220); MAGNESIUM 1.9 mg/dl (1.7-2.5); PHOSPHORUS 4.3 mg/dl (2.5-4.9); SODIUM 124 mmol/L (135-144)
[2018-07-31] MEDS: MIDODRINE 5 MG TAB GTB ×3 (08:19→17:00)
[2018-07-31] MEDS: AMIODARONE 150MG/D5W BOLUS 100 ML IV (08:22)
[2018-07-31] MEDS: DEXTROSE 50% 50 ML SYRINGE IV ×3 (08:22→22:32)
[2018-07-31] MEDS: COLLAGENASE 5 GM (UD JAR) TOP (08:24)
[2018-07-31] MEDS: BALSAM PERU/CASTOR OIL 60 GM TUBE TOP ×2 (08:25→21:35)
[2018-07-31 09:37] LABS: ALANINE AMINOTRANSFERASE 32 IU/L (13-69); ALBUMIN 1.6 g/dl (3.3-4.9); ALBUMIN/GLOBULIN RATIO 0.66; ALKALINE PHOSPHATASE 103 IU/L (42-121); ANION GAP 12 (5-13); ASPARTATE AMINO TRANSFERASE 37 IU/L (15-46); BILIRUBIN,INDIRECT 1.4 mg/dl (0-1.1); BILIRUBIN,TOTAL 3.5 mg/dl (0.2-1.3); BLOOD UREA NITROGEN 69 mg/dl (7-20); CALCIUM 6.7 mg/dl (8.4-10.2); CARBON DIOXIDE 19 mmol/L (21-31); CHLORIDE 92 mmol/L (97-110); CREATININE 0.85 mg/dl (0.44-1.00); Estimated GFR > 60 mL/min (>60); GLUCOSE 225 mg/dl (70-220); POTASSIUM 3.8 mmol/L (3.5-5.1); SODIUM 123 mmol/L (135-144)
[2018-07-31 10:53] LABS: ANISOCYTOSIS 2+ (0-0); BAND NEUTROPHILS #M 0.6 10^3/ul (0.0-0.6); BAND NEUTROPHILS % (M) 9 % (0-4); BURR CELLS 1+ (0-0); EOSINOPHILS % (M) 1 % (0-7); ERYTHROBLAST% (NRBC) (M) 1 % (0-0); GIANT THROMBO% (M) 3 % (0-0); LYMPHOCYTES #M 0.3 10^3/ul (0.8-2.9); LYMPHOCYTES % (M) 5 % (15-51); MICROCYTOSIS 1+ (0-0); MONOCYTES % (M) 1 % (0-11); PLATELET ESTIMATE SIG DECREASED; POIKILOCYTOSIS 2+ (0-0); REACTIVE LYMPHOCYTES% (M) 1 % (0-0); SEG NEUT #M 6.1 10^3/ul (1.6-7.5); SEGMENTED NEUTROPHILS (M) % 83 % (39-77); SMUDGE%M 1 % (0-0); TOXIC GRANULATION 1+ (0-0)
[2018-07-31] MEDS: SODIUM CHLORIDE 23.4% 154 MEQ in DEXTROSE 10% 1,000 ML IV (11:04)
[2018-07-31] MEDS: CASPOFUNGIN 50 MG in SOD CHLORIDE 0.9% 250 ML IVPB (13:15)
[2018-07-31] MEDS: EPOETIN ALFA-EPBX (ESRD) 10,000 UNIT/ML VIAL SC (17:29)
[2018-07-31] MEDS ORDERED: VASOPRESSIN 60 UNIT in DEXTROSE 5% 57 ML IV ×2 (20:00→22:30)
[2018-07-31] MEDS: VASOPRESSIN 60 UNIT in DEXTROSE 5% 57 ML IV (20:00)
[2018-07-31 23:48] LABS: CARDIOLIPIN AB - IGA <11 APL; CARDIOLIPIN AB - IGG <14 GPL; CARDIOLIPIN AB - IGM <12 MPL
[2018-08-01] MEDS: CLINDAMYCIN 600 MG/D5W (PMX) 50 ML IVPB (00:37)
[2018-08-01] MEDS: INSULIN ASPART [NOVOLOG] 3 ML PEN SC (00:56)
[2018-08-01] MEDS: ACCU-CHEK XX (01:03)
[2018-08-01] MEDS: morphine (DRIP) 100 MG/100 ML 100 ML IV (02:30)
[2018-08-01 19:17] LABS: HEXAGONAL PHASE CONFIRMATION POSITIVE (NEGATIVE); THROMBIN CLOTTING TIME 16 sec (13-19)
== END 2018-08-01 03:19 | disposition expired | DRG 4 ==
LOC: TEL 07-11 17:30 → ICU 07-23 07:09 → E/R 02:16 → ICU 04:53
PROC: 06HY33Z Insertion of Infusion Device into Lower Vein, Percutaneous Approach (ICD-10-PCS; principal; 2018-07-03 16:49)
PROC: 0B110F4 Bypass Trachea to Cutaneous with Tracheostomy Device, Open Approach (ICD-10-PCS; 2018-07-03 16:49)
PROC: 5A1955Z Respiratory Ventilation, Greater than 96 Consecutive Hours (ICD-10-PCS; 2018-07-03 16:49)
PROC: 0BH17EZ Insertion of Endotracheal Airway into Trachea, Via Natural or Artificial Opening (ICD-10-PCS; 2018-07-03 16:49)
PROC: 5A1D70Z Performance of Urinary Filtration, Intermittent, Less than 6 Hours Per Day (ICD-10-PCS; 2018-07-03 16:49)
PROC: 5A12012 Performance of Cardiac Output, Single, Manual (ICD-10-PCS; 2018-07-03 16:49)
PROC: 0W9G3ZZ Drainage of Peritoneal Cavity, Percutaneous Approach (ICD-10-PCS; 2018-07-03 16:49)
PROC: 05H533Z Insertion of Infusion Device into Right Subclavian Vein, Percutaneous Approach (ICD-10-PCS; 2018-07-03 16:49)
PROC: 0BH18EZ Insertion of Endotracheal Airway into Trachea, Via Natural or Artificial Opening Endoscopic (ICD-10-PCS; 2018-07-03 16:49)
PROC: 06HY33Z Insertion of Infusion Device into Lower Vein, Percutaneous Approach (ICD-10-PCS; 2018-07-03 16:49)
PROC: 0DH63UZ Insertion of Feeding Device into Stomach, Percutaneous Approach (ICD-10-PCS; 2018-07-03 16:49)
PROC: 30233R1 Transfusion of Nonautologous Platelets into Peripheral Vein, Percutaneous Approach (ICD-10-PCS; 2018-07-03 16:49)
PROC: 30233N1 Transfusion of Nonautologous Red Blood Cells into Peripheral Vein, Percutaneous Approach (ICD-10-PCS; 2018-07-03 16:49)
PROC: 5A09457 Assistance with Respiratory Ventilation, 24-96 Consecutive Hours, Continuous Positive Airway Pressure (ICD-10-PCS; 2018-07-03 16:49)
PROC: 5A1955Z Respiratory Ventilation, Greater than 96 Consecutive Hours (ICD-10-PCS; 2018-07-03 16:49)
DX: A41.59 Other Gram-negative sepsis (principal); R65.21 Severe sepsis with septic shock; L89.153 Pressure ulcer of sacral region, stage 3; J96.01 Acute respiratory failure with hypoxia; J96.02 Acute respiratory failure with hypercapnia; N18.6 End stage renal disease; J18.9 Pneumonia, unspecified organism; E43 Unspecified severe protein-calorie malnutrition; K55.059 Acute (reversible) ischemia of intestine, part and extent unspecified; T85.79XA Infection and inflammatory reaction due to other internal prosthetic devices, implants and grafts, initial encounter; R18.8 Other ascites; R64 Cachexia; D61.818 Other pancytopenia; E87.0 Hyperosmolality and hypernatremia; I42.9 Cardiomyopathy, unspecified; E87.2 Acidosis; G93.49 Other encephalopathy; E87.1 Hypo-osmolality and hyponatremia; K56.7 Ileus, unspecified; I13.2 Hypertensive heart and chronic kidney disease with heart failure and with stage 5 chronic kidney disease, or end stage renal disease; D75.82 Heparin induced thrombocytopenia (HIT); E83.42 Hypomagnesemia; I48.91 Unspecified atrial fibrillation; E16.2 Hypoglycemia, unspecified; I73.9 Peripheral vascular disease, unspecified; R62.7 Adult failure to thrive; D64.9 Anemia, unspecified; E87.6 Hypokalemia; K74.60 Unspecified cirrhosis of liver; D63.1 Anemia in chronic kidney disease; E89.0 Postprocedural hypothyroidism; I25.10 Atherosclerotic heart disease of native coronary artery without angina pectoris; I46.9 Cardiac arrest, cause unspecified; L89.150 Pressure ulcer of sacral region, unstageable; I48.0 Paroxysmal atrial fibrillation; R13.10 Dysphagia, unspecified; H70.93 Unspecified mastoiditis, bilateral; J01.00 Acute maxillary sinusitis, unspecified; K94.29 Other complications of gastrostomy; Y83.9 Surgical procedure, unspecified as the cause of abnormal reaction of the patient, or of later complication, without mention of misadventure at the time of the procedure; K72.90 Hepatic failure, unspecified without coma; Y83.8 Other surgical procedures as the cause of abnormal reaction of the patient, or of later complication, without mention of misadventure at the time of the procedure; Z68.22 Body mass index [BMI] 22.0-22.9, adult; Z95.0 Presence of cardiac pacemaker; Z99.2 Dependence on renal dialysis
CPT/HCPCS: 31500; 36415; 36430; 36569; 36600; 70450; 71045; 74018; 76604; 76705; 76937; 80048; 80053; 82140; 82270; 82533; 82550; 82607; 82803; 82947; 82962; 83540; 83605; 83735; 84100; 84443; 84484; 85014; 85018; 85025; 85049; 85335; 85362; 85378; 85384; 85610; 85613; 85670; 85730; 86022; 86038; 86147; 86644; 86704; 86709; 86803; 86850; 86900; 86901; 86920; 86945; 87040-91; 87045; 87070; 87081; 87340; 89220; 90935; 92526; 92610; 92950; 93005; 93971; 94002; 94003; 94640; 94660; 94664; 94770; 96365; 96375; 99285-25